=== PATIENT | female | born 1955 | race Caucasian/White ===

== ENCOUNTER 2017-01-27 15:23 | Emergency (ER) | payer BC ==
[2017-01-27 15:27] VITALS: TEMP 98; BMI 23.1
--- NOTE | 2017-01-27 16:18 | PDOC ---
History of Present Illness - General History Source: Patient Exam Limitations: No Limitations - History of Present Illness Initial Comments: 01/27/17 16:27 The patient is a 61 year old female, with a significant past medical history of UTI and gout, who presents to the emergency department with generalized weakness and low potassium. The patient was being worked up for a potential thyroid disorder when the low potassium was noted. She notes that she was taking prednisone for gout prior to the symptoms starting. She denies any recent illness or sick contacts. The patient denies chest pain, shortness of breath, headache and dizziness. Denies fever, chills, nausea, vomit, diarrhea and constipation. Denies dysuria, frequency, urgency and hematuria. Allergies: None Past surgical history: None reported Social history: Social alcohol use. No tobacco or drug use reported <Vin Harrison - Last Filed: 01/27/17 16:26> - General History Source: Patient Exam Limitations: No Limitations <Shaw Randolph - Last Filed: 01/27/17 21:42> - General Chief Complaint: Revisit, Lab Variance Stated Complaint: POTASSIUM PROBLEM Time Seen by Provider: 01/27/17 16:05 Past History <Vin Harrison - Last Filed: 01/27/17 16:26> - Past Medical History Hypercholesterolemia: Yes - Psycho/Social/Smoking Cessation Hx Anxiety: No Suicidal Ideation: No Smoking History: Never smoked Hx Alcohol Use: Yes (SOCIAL) Drug/Substance Use Hx: No Substance Use Type: None <Shaw Randolph - Last Filed: 01/27/17 21:42> - Past Medical History Allergies/Adverse Reactions: Allergies Allergy/AdvReac Type Severity Reaction Status Date / Time No Known Allergies Allergy Verified 01/27/17 15:27 Home Medications: Ambulatory Orders Unobtainable [Unobtainable] 01/27/17 Review of Systems - Review of Systems Able to Perform ROS?: Yes Comments:: 01/27/17 16:26 GENERAL/CONSTITUTIONAL: (+) Generalized weakness. No fever or chills. HEAD, EYES, EARS, NOSE AND THROAT: No change in vision. No ear pain or discharge. No sore throat. CARDIOVASCULAR: No chest pain or shortness of breath RESPIRATORY: No cough, wheezing, or hemoptysis. GASTROINTESTINAL: No nausea, vomiting, diarrhea or constipation. GENITOURINARY: No dysuria, frequency, or change in urination. MUSCULOSKELETAL: No joint or muscle swelling or pain. No neck or back pain. SKIN: No rash NEUROLOGIC: No headache, vertigo, loss of consciousness, or change in strength/ sensation. ENDOCRINE: No increased thirst. No abnormal weight change HEMATOLOGIC/LYMPHATIC: No anemia, easy bleeding, or history of blood clots. ALLERGIC/IMMUNOLOGIC: No hives or skin allergy. <Vin Harrison Telma - Last Filed: 01/27/17 16:26> *Physical Exam - Vital Signs Last Vital Signs Temp Pulse Resp BP Pulse Ox 98.0 F 110 H 20 117/76 97 01/27/17 15:24 01/27/17 15:24 01/27/17 15:24 01/27/17 15:24 01/27/17 15:24 - Physical Exam Comments: 01/27/17 16:26 GENERAL: Awake, alert, and fully oriented, in no acute distress HEAD: No signs of trauma, normocephalic, atraumatic EYES: PERRLA, EOMI, sclera anicteric, conjunctiva clear ENT: Auricles normal inspection, hearing grossly normal, nares patent, oropharynx clear without exudates. Moist mucosa NECK: Normal ROM, supple, no lymphadenopathy, JVD, or masses LUNGS: No distress, speaks full sentences, clear to auscultation bilaterally HEART: Regular rate and rhythm, normal S1 and S2, no murmurs, rubs or gallops, peripheral pulses normal and equal bilaterally. ABDOMEN: Soft, nontender, normoactive bowel sounds. No guarding, no rebound. No masses EXTREMITIES: Normal inspection, Normal range of motion, no edema. No clubbing or cyanosis. NEUROLOGICAL: Cranial nerves II through XII grossly intact. Normal speech, normal gait, no focal sensorimotor deficits SKIN: Warm, Dry, normal turgor, no rashes or lesions noted. <Laura Harrisonvinicius Hollis - Last Filed: 01/27/17 16:26> - Vital Signs Last Vital Signs Temp Pulse Resp BP Pulse Ox 98.0 F 110 H 20 117/76 97 01/27/17 15:24 01/27/17 15:24 01/27/17 15:24 01/27/17 15:24 01/27/17 15:24 <Park,Shaw - Last Filed: 01/27/17 21:42> Heart Score/ECG Review #1 ECG reviewed & interpreted by me at: 17:00 01/27/17 16:54 NSR 104, TWI III, avF, Q wave III, poor R wave progression, no std/jessica, QTC 476 msec <Shaw Randolph - Last Filed: 01/27/17 21:42> ED Treatment Course - LABORATORY CBC & Chemistry Diagram: 01/27/17 16:38 01/27/17 16:38 <Shaw Randolph - Last Filed: 01/27/17 21:42> Medical Decision Making - Medical Decision Making 01/27/17 16:16 A portion of this note was written by my scribe, under my supervision. Vital Signs Temp Pulse Resp BP Pulse Ox 98.0 F 110 H 20 117/76 97 01/27/17 15:24 01/27/17 15:24 01/27/17 15:24 01/27/17 15:24 01/27/17 15:24 61 year old female with past medical history of UTI, gout presents with low potassium ~2.6. The patient reports about 1 week of generalized weakness. Denies pain, recent illnesses, fevers, chills, cough, vomiting, diarrhea. Was taking prednisone for gout prior to the weakness. Not on diuretics. Was being worked up for potential thyroid disorder when she was incidentally ntoed to have low potassium. A repeat potassium was drawn and again pt was hypokalemic ( on outpatient labs). Pt was sent to the ED. Will investigate the hypokalemia. Will need ECG, labs. Will likely need admission to the hospital for hypokalemia. 01/27/17 21:39 CBC, BMP 01/27/17 16:38 01/27/17 16:38 CMP Sodium 136 mmol/L (136-145) 01/27/17 16:38 Potassium 3.4 mmol/L (3.5-5.1) L 01/27/17 16:38 Chloride 87 mmol/L (98-107) L 01/27/17 16:38 Carbon Dioxide 36 mmol/L (21-32) H 01/27/17 16:38 Anion Gap 13 (8-16) 01/27/17 16:38 BUN 9 mg/dL (7-18) 01/27/17 16:38 Creatinine 0.6 mg/dL (0.55-1.02) 01/27/17 16:38 Creat Clearance w eGFR > 60 (>60) 01/27/17 16:38 Random Glucose 105 mg/dL (74-106) 01/27/17 16:38 Calcium 9.2 mg/dL (8.5-10.1) 01/27/17 16:38 Phosphorus 2.6 mg/dL (2.5-4.9) 01/27/17 16:38 Magnesium 1.5 mg/dL (1.8-2.4) L 01/27/17 16:38 Total Bilirubin 3.8 mg/dL (0.2-1.0) H 01/27/17 16:38 Direct Bilirubin 2.5 mg/dL (0.0-0.2) H 01/27/17 16:38 AST 89 U/L (15-37) H 01/27/17 16:38 ALT 25 U/L (12-78) 01/27/17 16:38 Alkaline Phosphatase 423 U/L (45-117) H 01/27/17 16:38 Creatine Kinase 48 IU/L (26-192) 01/27/17 16:38 Troponin I < 0.02 ng/ml (0.00-0.05) 01/27/17 16:38 Total Protein 7.3 g/dl (6.4-8.2) 01/27/17 16:38 Albumin 3.1 g/dl (3.4-5.0) L 01/27/17 16:38 Urine Test Results Urine Color Katerina 01/27/17 18:00 Urine Appearance Clear 01/27/17 18:00 Urine pH 6.0 (5.0-8.0) 01/27/17 18:00 Ur Specific [place] 1.010 (1.005-1.025) 01/27/17 18:00 Urine Protein Negative (NEGATIVE) 01/27/17 18:00 Urine Glucose (UA) Negative (NEGATIVE) 01/27/17 18:00 Urine Ketones Negative (NEGATIVE) 01/27/17 18:00 Urine Blood Negative (NEGATIVE) 01/27/17 18:00 Urine Nitrite Negative (NEGATIVE) 01/27/17 18:00 Urine Bilirubin 4.0 (NEGATIVE) 01/27/17 18:00 Ur Leukocyte Esterase Negative (NEGATIVE) 01/27/17 18:00 Incidentally, the patient is noted have elevated bilirubin and elevated direct bilirubin with elevated urine bilirubin. However the potassium was unremarkable. The right upper quadrant ultrasound demonstrates fatty liver disease versus a hepatocellular disease and gallbladder sludging but no acute hcelle.CBD WNL. This may potentially be the source of the patient's issues. I discussed the case with gastrointestinal just special education professional Dr. Lockhart states that the patient can be discharged and be followed as an outpatient. Wants to follow- up with them in 1-2 weeks. 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 Agrees with plan. I discussed the physical exam findings, ancillary test results and final diagnoses with the patient. I answered all of the patient's questions. The patient was satisfied with the care received and felt comfortable with the discharge plan and treatment plan. The patient will call their primary care physician within 24 hours to arrange follow-up and will return to the Emergency Department with any new, persistant or worsening symptoms. <Shaw Randolph - Last Filed: 01/27/17 21:42> *DC/Admit/Observation/Transfer - Attestations Scribe Attestion: 01/27/17 16:26 Documentation prepared by Vin Harrison, acting as medical housekeeper for Shaw Randolph MD <Vin Harrison - Last Filed: 01/27/17 16:26> - Discharge Dispostion Admit: No <Shaw Randolph - Last Filed: 01/27/17 21:42> Diagnosis at time of Disposition: Elevated bilirubin - Discharge Dispostion Disposition: HOME Condition at time of disposition: Stable - Referrals Referrals: Patricia Skinner MD [Primary Care Provider] - Ronald Lockhart MD [Staff Physician] - - Patient Instructions Printed Discharge Instructions: Bilirubin, Direct, Bilirubin, Total Additional Instructions: Please follow up with Dr. Lockhart in 1 to 2 weeks. Please let the office know that Dr. Lockhart specifically requests them to be seen in this time span. Let them know you are ER referral. Call to schedule an appointment.
[2017-01-27 16:45] LABS: BASOPHIL 0.5 % (0-2.0); EOSINOPHIL 0.9 % (0-4.5); MCH 35.9 pg (25.7-33.7); MCHC 33.1 g/dl (32.0-36.0); MEAN CELL VOLUME 108.6 fl (80-96); MEAN PLT VOLUME 9.1 fl (7.5-11.1); NEUTROPHILS 76.8 % (42.8-82.8); PLATELET COUNT 205 K/MM3 (134-434); RDW 16.8 % (11.6-15.6); WHITE BLOOD COUNT 12.2 K/mm3 (4.0-10.0)
[2017-01-27 17:14] LABS: ALBUMIN 3.1 g/dl (3.4-5.0); ANION GAP 13 (8-16); CALCIUM 9.2 mg/dL (8.5-10.1); CO2 36 mmol/L (21-32); CREATININE 0.6 mg/dL (0.55-1.02); GLUCOSE,RANDOM 105 mg/dL (74-106); PHOSPHOROUS 2.6 mg/dL (2.5-4.9); SGPT/ALT 25 U/L (12-78)
[2017-01-27 17:15] LABS: TROPONIN I < 0.02 ng/ml (0.00-0.05)
[2017-01-27 17:16] LABS: ALK PHOS 423 U/L (45-117); BILIRUBIN,TOTAL 3.8 mg/dL (0.2-1.0); TOT PROT 7.3 g/dl (6.4-8.2)
[2017-01-27 17:34] LABS: MAGNESIUM 1.5 mg/dL (1.8-2.4); SGOT/AST 89 U/L (15-37)
[2017-01-27] MEDS ORDERED: MAGNESIUM SULF 50% (8.12 MEQ/2 ML-1 GM VIAL) IVPB ONE (17:48)
[2017-01-27] MEDS ORDERED: SODIUM CHLORIDE 1,000 ML IV STA (17:50)
[2017-01-27] MEDS ORDERED: MAGNESIUM SULF 50% (8.12 MEQ/2 ML-1 GM VIAL) ONE (18:02)
[2017-01-27 18:19] LABS: URINE APPEARANCE CLEAR; URINE BLOOD NEGATIVE (NEGATIVE); URINE COLOR AMBER; URINE GLUCOSE (UA) NEGATIVE (NEGATIVE); URINE KETONE NEGATIVE (NEGATIVE); URINE LEUK ESTERASE NEGATIVE (NEGATIVE); URINE NITRITE NEGATIVE (NEGATIVE); URINE PROTEIN NEGATIVE (NEGATIVE); URINE UROBILINOGEN 4.0 E.U/dl E.U./dl (0.2-1.0)
[2017-01-27 18:59] LABS: BILIRUBIN,TOTAL 3.8 mg/dL (0.2-1.0)
[2017-01-27 19:06] LABS: BILIRUBIN,DIRECT 2.5 mg/dL (0.0-0.2)
[2017-01-27 21:02] LABS: PLATELET ESTIMATE ADEQUATE (NORMAL)
[2017-01-27 21:03] LABS: POLYCHROMASIA OCC
[2017-01-27 21:56] VITALS: BP 119/72; PULSE 89
--- NOTE | 2017-01-28 12:35 | EKG ---
Test Reason : Blood Pressure : / mmHG Vent. Rate : 104 BPM Atrial Rate : 104 BPM P-R Int : 140 ms QRS Dur : 076 ms QT Int : 362 ms P-R-T Axes : 047 022 -08 degrees QTc Int : 476 ms SINUS TACHYCARDIA INFERIOR INFARCT , AGE UNDETERMINED ANTEROSEPTAL INFARCT , AGE UNDETERMINED ABNORMAL ECG NO PREVIOUS ECGS AVAILABLE Confirmed by DAKOTA ORTEGA MD ([id number]) on 01/28/2017 12:35:04 PM Referred By: Confirmed By:DAKOTA ORTEGA MD
== END 2017-01-27 21:56 | disposition home or self-care (01) ==
LOC: JER 15:23
PROC: 3E0337Z Introduction of Electrolytic and Water Balance Substance into Peripheral Vein, Percutaneous Approach (ICD-10-PCS; principal; 2017-01-27)
PROC: 3E033GC Introduction of Other Therapeutic Substance into Peripheral Vein, Percutaneous Approach (ICD-10-PCS; 2017-01-27)
DX: R17 Unspecified jaundice (principal)
CPT/HCPCS: 36415; 76705-TC; 80053; 81003; 82247; 82248; 82550; 83735; 84100; 84484; 85025; 87086; 93005; 93010; 99283-25

== ENCOUNTER 2017-10-21 18:20 | Inpatient (IN) | payer BC ==
--- NOTE | 2017-10-21 18:38 | PDOC ---
Rapid Medical Evaluation Time Seen by Provider: 10/21/17 18:38 Medical Evaluation: Allergies Allergy/AdvReac Type Severity Reaction Status Date / Time No Known Allergies Allergy Verified 01/27/17 15:27 10/21/17 18:38 62 year old female with history of UTIs and gout presenting "feeling dehydrated. " Complains of generalized weakness. +Dysuria, frequency, urgency + Vomiting x 1 this morning -Basic labs -UA/culture -To Main ED for further evaluation
[2017-10-21] MEDS ORDERED: SODIUM CHLORIDE 1,000 ML IV STA (18:42)
[2017-10-21 18:43] VITALS: BMI 22.1
[2017-10-21 19:56] LABS: URINE APPEARANCE SLCLOUDY; URINE BLOOD 1+ (NEGATIVE); URINE COLOR AMBER; URINE GLUCOSE (UA) NEGATIVE (NEGATIVE); URINE KETONE NEGATIVE (NEGATIVE); URINE NITRITE NEGATIVE (NEGATIVE); URINE UROBILINOGEN 4.0 E.U/dl mg/dL (0.2-1.0)
[2017-10-21 20:05] LABS: URINE LEUK ESTERASE 1+ (NEGATIVE); URINE PROTEIN 3+ (NEGATIVE)
[2017-10-21 20:06] LABS: EPI CELLS FEW /HPF (FEW); URINE HYALINE CAST 6 /lpf; URINE MUCUS MODERATE
[2017-10-21 20:17] LABS: HEMATOCRIT 37.6 % (32.4-45.2); MCH 36.5 pg (25.7-33.7); MCHC 34.4 g/dl (32.0-36.0); MEAN PLT VOLUME 9.9 fl (7.5-11.1); PLATELET COUNT 97 K/MM3 (134-434); RBC 3.55 M/mm3 (3.60-5.2); RDW 17.7 % (11.6-15.6); WHITE BLOOD COUNT 13.8 K/mm3 (4.0-10.0)
[2017-10-21 20:26] LABS: ADD RBC MORPHOLOGY YES
[2017-10-21 20:31] LABS: INR 1.59 (0.82-1.09)
[2017-10-21 20:43] LABS: ALBUMIN 4.1 g/dl (3.4-5.0); ALK PHOS 562 U/L (45-117); ANION GAP 12 (8-16); BILIRUBIN,TOTAL 4.2 mg/dL (0.2-1.0); BLOOD UREA NITROGEN 6 mg/dL (7-18); CALCIUM 9.1 mg/dL (8.5-10.1); CHLORIDE 90 mmol/L (98-107); CO2 32 mmol/L (21-32); CREATININE 0.9 mg/dL (0.55-1.02); GLUCOSE,RANDOM 111 mg/dL (74-106); MAGNESIUM 0.9 mg/dL (1.8-2.4); SGOT/AST 164 U/L (15-37); SGPT/ALT 39 U/L (12-78); SODIUM 134 mmol/L (136-145)
[2017-10-21 21:12] LABS: MACROCYTOSIS 2+; PLATELET ESTIMATE DECREASED
[2017-10-22] MEDS ORDERED: POTASSIUM CHLORIDE ORAL LIQUID 20 MEQ/15 ML PO ONE (00:13)
[2017-10-22] MEDS ORDERED: KCL 10 MEQ IVPB 10 MEQ/100 ML INFUS.BAG IVPB SCH (00:15)
[2017-10-22] MEDS ORDERED: SODIUM CHLORIDE 0.9% 1000 ML INFUS.BAG IV SCH (00:15)
[2017-10-22] MEDS ORDERED: LACTULOSE 20 GM/30 ML UDC (FOR ORAL USE ONLY) PO ONE (00:37)
[2017-10-22] MEDS ORDERED: ACETAMINOPHEN 325 MG TABLET (FP) PO ONE (00:42)
[2017-10-22] MEDS ORDERED: chlordiazePOXIDE HCL 25 MG CAPSULE PO ONE (00:42)
--- NOTE | 2017-10-22 00:43 | PDOC ---
*Physical Exam - Vital Signs Last Vital Signs Temp Pulse Resp BP Pulse Ox 101.8 F H 128 H 18 152/82 96 10/21/17 18:40 10/21/17 18:40 10/21/17 18:40 10/21/17 18:40 10/21/17 18:40 ED Treatment Course - LABORATORY CBC & Chemistry Diagram: 10/25/17 06:30 10/25/17 06:30 - ADDITIONAL ORDERS Additional order review: Laboratory Results 10/21/17 10/21/17 10/21/17 19:45 19:45 19:45 PT with INR 18.00 H INR 1.59 H D Sodium Potassium Chloride Carbon Dioxide Anion Gap BUN Creatinine Creat Clearance w eGFR Random Glucose Lactic Acid 4.3 H* Calcium Magnesium Total Bilirubin AST ALT Alkaline Phosphatase Ammonia 100.80 H Total Protein Albumin Urine Color Urine Appearance Urine pH Ur Specific [place] Urine Protein Urine Glucose (UA) Urine Ketones Urine Blood Urine Nitrite Urine Bilirubin Urine Urobilinogen Ur Leukocyte Esterase Urine WBC (Auto) Urine RBC (Auto) Ur Epithelial Cells Hyaline Casts Urine Mucus 10/21/17 10/21/17 19:45 19:35 PT with INR INR Sodium 134 L Potassium 3.0 L Chloride 90 L Carbon Dioxide 32 Anion Gap 12 BUN 6 L Creatinine 0.9 Creat Clearance w eGFR > 60 Random Glucose 111 H Lactic Acid Calcium 9.1 Magnesium 0.9 L Total Bilirubin 4.2 H D AST 164 H ALT 39 Alkaline Phosphatase 562 H Ammonia Total Protein 9.0 H Albumin 4.1 Urine Color Katerina Urine Appearance Slcloudy Urine pH 6.0 Ur Specific [place] 1.024 Urine Protein 3+ H Urine Glucose (UA) Negative Urine Ketones Negative Urine Blood 1+ H Urine Nitrite Negative Urine Bilirubin 2.0 Urine Urobilinogen 4.0 e.u/dl H Ur Leukocyte Esterase 1+ H Urine WBC (Auto) 80 Urine RBC (Auto) 9 Ur Epithelial Cells Few Hyaline Casts 6 Urine Mucus Moderate 10/21/17 19:45 RBC 3.55 L MCV 106.0 H MCHC 34.4 RDW 17.7 H D MPV 9.9 D Neutrophils % No Result Required. Lymphocytes % No Result Required. Medical Decision Making - Medical Decision Making 10/22/17 00:41 Pt will be admitted for hepatic encephalopathy. Pt probably withdrawing from alcohol as well. Pt also has a UTI. Pt to be admitted to [facility]. agree with care from RAMESH Corcoran *DC/Admit/Observation/Transfer Diagnosis at time of Disposition: Hepatic encephalopathy, Hypokalemia, Sepsis, UTI (urinary tract infection) - Discharge Dispostion Disposition: HOME Condition at time of disposition: Stable - Prescriptions - Referrals - Patient Instructions - Post Discharge Activity
[2017-10-22] MEDS ORDERED: LACTULOSE 20 GM/30 ML UDC (FOR ORAL USE ONLY) ONE (01:10)
[2017-10-22] MEDS ORDERED: ACETAMINOPHEN 325 MG TABLET (FP) ONE (01:10)
[2017-10-22] MEDS ORDERED: chlordiazePOXIDE HCL 25 MG CAPSULE ONE ×2 (01:10→01:42)
[2017-10-22] MEDS ORDERED: POTASSIUM CHLORIDE ORAL LIQUID 20 MEQ/15 ML ONE ×2 (01:10→05:01)
[2017-10-22] MEDS ORDERED: CEFTRIAXONE 1 GM/50 ML BAG ONE (01:11)
[2017-10-22] MEDS ORDERED: KCL 10 MEQ IVPB 10 MEQ/100 ML INFUS.BAG IVPB ONE (01:11)
[2017-10-22] MEDS ORDERED: MAGNESIUM SULF 50% (8.12 MEQ/2 ML-1 GM VIAL) IVPB ONE ×3 (04:09→17:13)
--- NOTE | 2017-10-22 04:48 | PDOC ---
History of Present Illness - General Chief Complaint: Urinary Problem Stated Complaint: WEAKNESS,DARKER URINE, POOR Time Seen by Provider: 10/21/17 18:38 History Source: Patient, Family Exam Limitations: No Limitations - History of Present Illness Initial Comments: 10/22/17 04:42 Patient is a 62-year-old female history of EtOH abuse, HLD, alcoholic liver hepatitis, prediabetes, myomectomy, hysterectomy, oophorectomy came in complaining of legs feeling shaky and weak which started today. States her last drink was one week ago. States that each time she gets up to walk she is very shaky and has to sit down. She is also complaining off suprapubic pain, bilateral back pain and dysuria 2 weeks. States she thinks she is having a UTI however did not get care for her symptoms. Denies fever, chills, nausea, vomiting. Noted on triage to be febrile PMD: Dr. Patricia Skinner PMHX: As above PSOCHx: (+) EtOH, (-) cig, (-) drug ALL: NKDA GENERAL/CONSTITUTIONAL: (+) fever or chills. (+) weakness. No weight change.] HEAD, EYES, EARS, NOSE AND THROAT: [No change in vision. No ear pain or discharge. No sore throat.] CARDIOVASCULAR: [No chest pain or shortness of breath.] RESPIRATORY: [No cough, wheezing, or hemoptysis.] GASTROINTESTINAL: [No nausea, vomiting, diarrhea or constipation. No rectal bleeding.] GENITOURINARY: [No dysuria, frequency, or change in urination.] MUSCULOSKELETAL: [No joint or muscle swelling or pain. No neck or back pain.] SKIN AND BREASTS: [No rash or easy bruising.] NEUROLOGIC: [No headache, vertigo, loss of consciousness, or loss of sensation.] PSYCHIATRIC: [No depression or anxiety.] ENDOCRINE: [No increased thirst. No abnormal weight change.] HEMATOLOGIC/LYMPHATIC: [No anemia, easy bleeding, or history of blood clots.] ALLERGIC/IMMUNOLOGIC: [No hives or skin allergy. No latex allergy.] GENERAL: [The patient is awake, alert, and fully oriented, in no acute distress. ] HEAD: [Normal with no signs of trauma.] EYES: [Pupils equal, round and reactive to light, extraocular movements intact, sclera icteric, conjunctiva clear.] ENT: [Ears normal, nares patent, oropharynx clear without exudates. Moist mucous membranes.] NECK: [Normal range of motion, supple without lymphadenopathy, JVD, or masses.] LUNGS: [Breath sounds equal, clear to auscultation bilaterally. No wheezes, and no crackles.] HEART: [Regular rate and rhythm, normal S1 and S2 without murmur, rub.] ABDOMEN: [Soft, nontender, normoactive bowel sounds. No guarding, no rebound. No masses.] EXTREMITIES: [Normal range of motion, no edema. No clubbing or cyanosis. No cords, erythema, or tenderness.] NEUROLOGICAL: [Cranial nerves II through XII grossly intact. (+) Tremors prior and lower extremities, lower extremity 3/5 strength, upper extremity 5/5 patellar reflexes decreased, gait not tested due to fall risk. PSYCH: [Normal mood, normal affect.] SKIN: [Warm, Dry, normal turgor, (+) jaundiced, no rashes or lesions noted.] Past History - Past Medical History Allergies/Adverse Reactions: Allergies Allergy/AdvReac Type Severity Reaction Status Date / Time No Known Allergies Allergy Verified 10/21/17 18:43 Home Medications: Ambulatory Orders NK [No Known Home Medication] 10/22/17 COPD: No Diabetes: Yes (borderline) Hypercholesterolemia: Yes Other medical history: liver problems due to alcohol - Suicide/Smoking/Psychosocial Hx Smoking History: Never smoked Have you smoked in the past 12 months: No Information on smoking cessation initiated: No Hx Alcohol Use: Yes Drug/Substance Use Hx: No Substance Use Type: None *Physical Exam - Vital Signs Last Vital Signs Temp Pulse Resp BP Pulse Ox 101.8 F H 128 H 18 152/82 96 10/21/17 18:40 10/21/17 18:40 10/21/17 18:40 10/21/17 18:40 10/21/17 18:40 ED Treatment Course - LABORATORY CBC & Chemistry Diagram: 10/21/17 19:45 10/22/17 05:58 - ADDITIONAL ORDERS Additional order review: Laboratory Results 10/21/17 10/21/17 10/21/17 19:45 19:45 19:45 PT with INR 18.00 H INR 1.59 H D Sodium Potassium Chloride Carbon Dioxide Anion Gap BUN Creatinine Creat Clearance w eGFR Random Glucose Lactic Acid 4.3 H* Calcium Magnesium Total Bilirubin AST ALT Alkaline Phosphatase Ammonia 100.80 H Total Protein Albumin Urine Color Urine Appearance Urine pH Ur Specific [place] Urine Protein Urine Glucose (UA) Urine Ketones Urine Blood Urine Nitrite Urine Bilirubin Urine Urobilinogen Ur Leukocyte Esterase Urine WBC (Auto) Urine RBC (Auto) Ur Epithelial Cells Hyaline Casts Urine Mucus 10/21/17 10/21/17 19:45 19:35 PT with INR INR Sodium 134 L Potassium 3.0 L Chloride 90 L Carbon Dioxide 32 Anion Gap 12 BUN 6 L Creatinine 0.9 Creat Clearance w eGFR > 60 Random Glucose 111 H Lactic Acid Calcium 9.1 Magnesium 0.9 L Total Bilirubin 4.2 H D AST 164 H ALT 39 Alkaline Phosphatase 562 H Ammonia Total Protein 9.0 H Albumin 4.1 Urine Color Katerina Urine Appearance Slcloudy Urine pH 6.0 Ur Specific [place] 1.024 Urine Protein 3+ H Urine Glucose (UA) Negative Urine Ketones Negative Urine Blood 1+ H Urine Nitrite Negative Urine Bilirubin 2.0 Urine Urobilinogen 4.0 e.u/dl H Ur Leukocyte Esterase 1+ H Urine WBC (Auto) 80 Urine RBC (Auto) 9 Ur Epithelial Cells Few Hyaline Casts 6 Urine Mucus Moderate 10/21/17 19:45 RBC 3.55 L MCV 106.0 H MCHC 34.4 RDW 17.7 H D MPV 9.9 D Neutrophils % No Result Required. Lymphocytes % No Result Required. - Medications Given in the ED: ED Medications Discontinued Medications Generic Name Dose Route Start Last Admin Trade Name Freq PRN Reason Stop Dose Admin Acetaminophen 650 mg 10/22/17 00:42 10/22/17 01:40 Tylenol - PO 10/22/17 00:43 650 mg ONCE ONE Administration Ceftriaxone Sodium 1,000 mg 10/22/17 00:42 10/22/17 01:46 Rocephin - IVPUSH 10/22/17 00:43 1,000 mg ONCE ONE Administration Chlordiazepoxide HCl 50 mg 10/22/17 00:42 10/22/17 01:45 Librium - PO 10/22/17 00:43 50 mg ONCE ONE Administration Sodium Chloride 1,000 mls @ 1,000 mls/hr 10/21/17 18:42 10/22/17 01:59 Normal Saline - IV 10/21/17 19:41 1,000 mls/hr ASDIR STA Administration Potassium Chloride 10 meq in 100 mls @ 100 mls/hr 10/22/17 00:15 10/22/17 01: 59 Potassium Chloride 10 Meq Premix Ivpb - IVPB 10/22/17 01:14 100 mls/hr Q60M LISET Administration Lactulose 20 gm 10/22/17 00:37 10/22/17 01:40 Cephulac (Oral Use) PO 10/22/17 00:38 20 gm ONCE ONE Administration Potassium Chloride 40 meq 10/22/17 00:13 10/22/17 01:40 Potassium Chloride Oral Liquid PO 10/22/17 00:14 40 meq ONCE ONE Administration Medical Decision Making - Medical Decision Making 10/22/17 04:48 Patient is a 62-year-old female history of EtOH abuse, HLD, alcoholic liver hepatitis, prediabetes, myomectomy, hysterectomy, oophorectomy came in complaining of legs feeling shaky and weak that which started today and UTI symptoms. Found to be febrile and tachycardic consisdered septic. Sepsis protocol initiated labs done at triage noted elevated wbc and lactic will have to r/o sepsis IVF and Rocephin 1 gm give IV librium, lactulose given CXR neg ekg sr rate 93, LAD, (-) st-t wave changes Case d/w with hospitalist will admit *DC/Admit/Observation/Transfer Diagnosis at time of Disposition: Hepatic encephalopathy, Hypokalemia Sepsis Qualifiers: Sepsis type: sepsis due to unspecified organism Qualified Code(s): A41.9 - Sepsis, unspecified organism UTI (urinary tract infection) Qualifiers: Urinary tract infection type: site unspecified Hematuria presence: without hematuria Qualified Code(s): N39.0 - Urinary tract infection, site not specified - Discharge Dispostion Condition at time of disposition: Stable Admit: Yes - Referrals - Patient Instructions - Post Discharge Activity
[2017-10-22] MEDS ORDERED: POTASSIUM CHLORIDE TABS 20 MEQ TABLET.ER (FP) PO ONE (04:58)
[2017-10-22] MEDS: SODIUM CHLORIDE 1,000 ML IV SCH (04:58)
[2017-10-22] MEDS ORDERED: FOLIC ACID INJECTION - 1 MG, THIAMINE HCL 100 MG, MULTIVIT INJECTION ADULT 10 ML in SOD... IVPB ONE (04:59)
[2017-10-22] MEDS ORDERED: MAGNESIUM SULF 50% (8.12 MEQ/2 ML-1 GM VIAL) ONE ×2 (05:01→18:18)
--- NOTE | 2017-10-22 05:06 | HP ---
CHIEF COMPLAINT: weakness HISTORY OF PRESENT ILLNESS: 62 year old female with a history of recurrent UTIs (previous infection was last year), hypokalemia, alcoholism and gout was brought to the hospital by her for generalized weakness of 1 day duration. Patient states that she had difficulty getting out of bed yesterday and was not able to use her legs very well. She also states that she has some mild burning on urination and urinary frequency. She states that she drinks frequently, with her last drink bring "1 week ago". Reports drinking 2-3 drinks a day. Denies history of withdrawal or a history of seizures. Currently, patient denies chest pain, SOB, nausea, vomiting , diarrhea, fevers, chills. ER course was notable for: (1) fever 101.8 (2) WBC 13.8 (3) LA 4.3 (4) K 3.0 (5) Mg 0.9 (6) (+) UA (7) ALP 562 (8) AST 164 PAST MEDICAL HISTORY: UTIs, Hypokalemia, Alcoholism Social History: Smoking: none, never Alcohol: 2-3 drinks a day, states that she quit last week Drugs: none Allergies No Known Allergies Allergy (Verified 10/21/17 18:43) HOME MEDICATIONS: Home Medications Medication Instructions Recorded NK [No Known Home Medication] 10/22/17 REVIEW OF SYSTEMS CONSTITUTIONAL: generalized weakness Absent: fever, chills, diaphoresis, , malaise, loss of appetite, weight change HEENT: Absent: rhinorrhea, nasal congestion, throat pain, throat swelling, difficulty swallowing, mouth swelling, ear pain, eye pain, visual changes CARDIOVASCULAR: Absent: chest pain, syncope, palpitations, irregular heart rate, lightheadedness , peripheral edema RESPIRATORY: Absent: cough, shortness of breath, dyspnea with exertion, orthopnea, wheezing, stridor, hemoptysis GASTROINTESTINAL: Absent: abdominal pain, abdominal distension, nausea, vomiting, diarrhea, constipation, melena, hematochezia GENITOURINARY: Absent: dysuria, frequency, urgency, hesitancy, hematuria, flank pain, genital pain MUSCULOSKELETAL: Absent: myalgia, arthralgia, joint swelling, back pain, neck pain SKIN: Absent: rash, itching, pallor HEMATOLOGIC/IMMUNOLOGIC: Absent: easy bleeding, easy bruising, lymphadenopathy, frequent infections ENDOCRINE: Absent: unexplained weight gain, unexplained weight loss, heat intolerance, cold intolerance NEUROLOGIC: Absent: headache, focal weakness or paresthesias, dizziness, unsteady gait, seizure, mental status changes, bladder or bowel incontinence PSYCHIATRIC: Absent: anxiety, depression, suicidal or homicidal ideation, hallucinations. PHYSICAL EXAMINATION Vital Signs - 24 hr 10/21/17 18:40 Temperature 101.8 F H Pulse Rate 128 H Respiratory 18 Rate Blood Pressure 152/82 O2 Sat by Pulse 96 Oximetry (%) GENERAL: A&O x 3 EYES: PERRLA, EOMI, mild scleral icterus noted ENT: moist mucus membranes NECK: No JVD LUNGS: CTA HEART: RRR, no murmurs ABDOMEN: soft nontender, bs present MSK: No CVA tenderness LOWER EXTREMITIES: 2+ pulses, no edema NEUROLOGICAL: Cranial nerves II-XII intact. No focal deficits, no dysmetria Laboratory Results - last 24 hr 10/21/17 10/21/17 10/21/17 19:35 19:45 19:45 WBC 13.8 H RBC 3.55 L Hgb 13.0 Hct 37.6 MCV 106.0 H MCH 36.5 H D MCHC 34.4 RDW 17.7 H D Plt Count 97 L D MPV 9.9 D Neutrophils % No Result Required. Neutrophils % (Manual) 53.0 Band Neutrophils % 28.0 Lymphocytes % No Result Required. Lymphocytes % (Manual) 5.0 L Monocytes % (Manual) 10 Eosinophils % (Manual) 0.0 Basophils % (Manual) 0.0 Platelet Estimate Decreased Platelet Comment No clumping noted Macrocytosis 2+ PT with INR INR Sodium 134 L Potassium 3.0 L Chloride 90 L Carbon Dioxide 32 Anion Gap 12 BUN 6 L Creatinine 0.9 Creat Clearance w eGFR > 60 Random Glucose 111 H Lactic Acid Calcium 9.1 Magnesium 0.9 L Total Bilirubin 4.2 H D AST 164 H ALT 39 Alkaline Phosphatase 562 H Ammonia Total Protein 9.0 H Albumin 4.1 Urine Color Katerina Urine Appearance Slcloudy Urine pH 6.0 Ur Specific [place] 1.024 Urine Protein 3+ H Urine Glucose (UA) Negative Urine Ketones Negative Urine Blood 1+ H Urine Nitrite Negative Urine Bilirubin 2.0 Urine Urobilinogen 4.0 e.u/dl H Ur Leukocyte Esterase 1+ H Urine WBC (Auto) 80 Urine RBC (Auto) 9 Ur Epithelial Cells Few Hyaline Casts 6 Urine Mucus Moderate 10/21/17 10/21/17 10/21/17 19:45 19:45 19:45 WBC RBC Hgb Hct MCV MCH MCHC RDW Plt Count MPV Neutrophils % Neutrophils % (Manual) Band Neutrophils % Lymphocytes % Lymphocytes % (Manual) Monocytes % (Manual) Eosinophils % (Manual) Basophils % (Manual) Platelet Estimate Platelet Comment Macrocytosis PT with INR 18.00 H INR 1.59 H D Sodium Potassium Chloride Carbon Dioxide Anion Gap BUN Creatinine Creat Clearance w eGFR Random Glucose Lactic Acid 4.3 H* Calcium Magnesium Total Bilirubin AST ALT Alkaline Phosphatase Ammonia 100.80 H Total Protein Albumin Urine Color Urine Appearance Urine pH Ur Specific [place] Urine Protein Urine Glucose (UA) Urine Ketones Urine Blood Urine Nitrite Urine Bilirubin Urine Urobilinogen Ur Leukocyte Esterase Urine WBC (Auto) Urine RBC (Auto) Ur Epithelial Cells Hyaline Casts Urine Mucus Current Medications Chlordiazepoxide HCl (Librium -) 15 mg PO PRN LISET Heparin Sodium (Porcine) (Heparin -) 5,000 unit SQ Q8H-IV LISET Sodium Chloride (Normal Saline -) 1,000 mls @ 100 mls/hr IV ASDIR LISET Last Admin: 10/22/17 04:58 Dose: 100 mls/hr Folic Acid 1 mg/ Thiamine HCl 100 mg/ Multivitamins/Minerals 10 ml/ Sodium Chloride 1,000 mls @ 125 mls/hr IVPB ONCE ONE Stop: 10/22/17 12:58 Last Admin: 10/22/17 05:11 Dose: 125 mls/hr Ceftriaxone Sodium 2 gm/ (Dextrose) 100 mls @ 200 mls/hr IVPB DAILY [facility] Magnesium Oxide (Mag-Ox -) 400 mg PO BID LISET Sodium Chloride (Normal Saline -) 1,864 ml 30 ml/kg (1864 ml) IV ONCE LISET Last Admin: 10/22/17 01:59 Dose: 1,864 ml ASSESSMENT/PLAN: 62 year old female with a hx of recurrent UTI, gout, hypokalemia, and liver disease presented to the hospital for weakness and found to have sepsis likely 2 /2 UTI as well as alcoholic liver disease and hypokalemia #Sepsis 2/2 UTI: patient has had UTIs in the past, having mild symptoms now but is febrile with a white count and a lactic acidosis -CXR negative -UA positive for WBCs and 1+ leukocyte esterase and cloudy -fluid resuscitation with NS @ 100cc/hr -ceftriaxone 2gm IV daily -trend lactic acid -follow urine and blood cultures #Alcoholic Liver Disease: patient has elevated ammonia, alk phos, and AST/ALT ratio > 2:1 -unlikely hepatic encephalopathy given clinical exam and findings -RUQ US ordered -GI consult Dr. Berkowitz appreciated #Hypokalemia: potassium 3.0, has a history of hypokalemia -give 2 of K-dur, 40meq each -repeat potassium -replete magnesium in order to properly replete potassium -EKG now #Hypomagnesemia: mag 0.9 -replete mag with 4gm IV and Magnesium Oxide 400mg PO BID -recheck mag after repletion -make sure not to overload with mag -EKG now, consider repeating EKG if mag is repleted above normal limits #Hyponatremia: sodium 134 -IV NS @ 100cc/hr #Alcoholism: last drink 1 week ago, does not appear in acute withdrawal, CIWA of 0 -Librium PRN, consider librium taper if patient begins to have withdrawal symptoms #FEN -IV NS @ 100cc/hr -Replete lytes in AM as described above -Protein controlled diet #Prophylaxis -Heparin 5000 subQ TID #Disposition -Admit to med-surg Visit type - Emergency Visit Emergency Visit: Yes Care time: The patient presented to the Emergency Department on the above date and was hospitalized for further evaluation of their emergent condition. - New Patient This patient is new to me today: Yes Date on this admission: 10/22/17 - Critical Care Critical Care patient: No Hospitalist Screening - Colonoscopy Questionnaire Colonoscopy Questionnaire: Colonoscopy Questionnaire - Patient: 50 - 75 years old and never had a screening colonoscopy: Unknown History of colon or rectal polyps, or CA: Unknown History of IBD, Crohn's disease or UC: Unknown History of abdominal radiation therapy as a child: Unknown - Relative: 1 with colon or rectal CA, or polyps at age 60 or younger: Unknown Colon or rectal CA diagnosed at age 45 or younger: Unknown Multiple relatives with colon or rectal CA: Unknown - Outcome: Screening Result: Negative Screen
[2017-10-22] MEDS ORDERED: chlordiazePOXIDE 5 MG CAPSULE PO SCH (05:15)
--- NOTE | 2017-10-22 05:25 | PN ---
Teaching Attending Note Name of Resident: Delano Russell ATTENDING PHYSICIAN STATEMENT I saw and evaluated the patient. I reviewed the resident's note and discussed the case with the resident. I agree with the resident's findings and plan as documented. SUBJECTIVE: 62F with ETOH abuse, alcoholic liver disease?, recurrent UTI comes in with generealized weakness. last drink Wednesday night, reports does not get withdrawals. OBJECTIVE: Gen: NAD, no tremors agitation, anxiety CV: RRR no m/r/g Lungs: CTA Ext: no asterixis K 3 Mg 0.9 ammonia 100 lac 4.3 ASSESSMENT AND PLAN: 62F with fever leukocytosis and urinary symptoms suggest Sepsis UTI, complicated by dehydration, hypokalemia, hypomagnesemia. Mentation appears normal not in enecephalopathy IV abx IVF Replete Mg and K and recheck in 4 hrs librium prn as she is not actively withdrawing
[2017-10-22 06:35] LABS: ANION GAP 12 (8-16); BLOOD UREA NITROGEN 10 mg/dL (7-18); CALCIUM 7.5 mg/dL (8.5-10.1); CHLORIDE 102 mmol/L (98-107); CO2 26 mmol/L (21-32); CREATININE 0.8 mg/dL (0.55-1.02); GLUCOSE,RANDOM 119 mg/dL (74-106); SODIUM 140 mmol/L (136-145)
[2017-10-22] MEDS ORDERED: CEFTRIAXONE 2 GM in DEXTROSE 5%-WATER - 100 ML IVPB SCH (10:00)
--- NOTE | 2017-10-22 10:21 | CON.GI ---
Consult Consult Specialty:: GI Reason for Consultation:: alcoholic liver diases - History of Present Illness History of Present Illness: chart reviewed. As per initial intake: 62 year old female with a history of recurrent UTIs ( previous infection was last year), hypokalemia, alcoholism and gout was brought to the hospital by her for generalized weakness of 1 day duration. Patient states that she had difficulty getting out of bed yesterday and was not able to use her legs very well. She also states that she has some mild burning on urination and urinary frequency. She states that she drinks frequently, with her last drink bring "1 week ago". Reports drinking 2-3 drinks a day. Denies history of withdrawal or a history of seizures. Currently, patient denies chest pain, SOB, nausea, vomiting, diarrhea, fevers, chills. In ED was found to have mild leukocytosis, mild hepatitis with cholestatic picture, positive UA, fatty liver with cholelithiasis on ultrasound. At the time of this encounter: The patient is not in distress, laying comfortably in her bed, awake, alert, oriented. she is aware of her liver condition for many years. She knows its likely due to alcohol. On exam has asterixis. Reports feeling weak for the last 1 week. Denies fever, chills, nausea, vomiting, hematemesis, hematochezia, melena, or diarrhea. her told her 2 days ago her eyes were yellow. The patient denies fluctuating abdominal girth, lower extremity swelling, feeling disoriented, inability to fall asleep, or stay awake. The patient continues to drink alcohol daily. Never had upper endoscopy. Screening colonoscopy was done 5 years ago and she tells me she is due for one now. - History Source History Provided By: Patient, Medical Record - Alcohol/Substance Use Hx Alcohol Use: Yes - Smoking History Smoking history: Never smoked Have you smoked in the past 12 months: No Home Medications - Allergies Allergies/Adverse Reactions: Allergies Allergy/AdvReac Type Severity Reaction Status Date / Time No Known Allergies Allergy Verified 10/21/17 18:43 - Home Medications Home Medications: Ambulatory Orders NK [No Known Home Medication] 10/22/17 Family Disease History - Family Disease History Family History: Unremarkable Review of Systems Findings/Remarks: please refer to HPI and H&P Physical Exam-GI Vital Signs: Vital Signs Temperature 98.8 F 10/22/17 07:13 Pulse Rate 88 10/22/17 07:13 Respiratory Rate 16 10/22/17 07:13 Blood Pressure 98/63 10/22/17 07:13 O2 Sat by Pulse Oximetry (%) 96 10/22/17 07:13 Constitutional: Yes: Well Nourished, No Distress, Calm Eyes: Yes: Sclera Icterus ( mild) HENT: Yes: Atraumatic Neck: Yes: Supple Cardiovascular: Yes: Regular Rate and Rhythm Respiratory: Yes: Regular Gastrointestinal Inspection: No: Ascites, Distention ...Auscultate: Yes: Hyperactive Bowel Sounds ...Palpate: Yes: Soft. No: Firm/Rigid, Guarding, Mass, Tenderness, Rebound Musculoskeletal: Yes: WNL Extremities: Yes: WNL Edema: No Neurological: Yes: Alert, Oriented, Asterixis Psychiatric: Yes: Alert, Oriented. No: Agitated Labs: INR, PTT INR 1.59 (0.82-1.09) H D 10/21/17 19:45 Laboratory Tests 10/21/17 10/21/17 10/21/17 19:35 19:45 19:45 WBC 13.8 H RBC 3.55 L Hgb 13.0 Hct 37.6 MCV 106.0 H MCH 36.5 H D MCHC 34.4 RDW 17.7 H D Plt Count 97 L D MPV 9.9 D Neutrophils % No Result Required. Neutrophils % (Manual) 53.0 Band Neutrophils % 28.0 Lymphocytes % No Result Required. Lymphocytes % (Manual) 5.0 L Monocytes % (Manual) 10 Eosinophils % (Manual) 0.0 Basophils % (Manual) 0.0 Platelet Estimate Decreased Platelet Comment No clumping noted Macrocytosis 2+ PT with INR INR Sodium 134 L Potassium 3.0 L Chloride 90 L Carbon Dioxide 32 Anion Gap 12 BUN 6 L Creatinine 0.9 Creat Clearance w eGFR > 60 Random Glucose 111 H Lactic Acid Calcium 9.1 Phosphorus Magnesium 0.9 L Total Bilirubin 4.2 H D AST 164 H ALT 39 Alkaline Phosphatase 562 H Ammonia Total Protein 9.0 H Albumin 4.1 Urine Color Katerina Urine Appearance Slcloudy Urine pH 6.0 Ur Specific [place] 1.024 Urine Protein 3+ H Urine Glucose (UA) Negative Urine Ketones Negative Urine Blood 1+ H Urine Nitrite Negative Urine Bilirubin 2.0 Urine Urobilinogen 4.0 e.u/dl H Ur Leukocyte Esterase 1+ H Urine WBC (Auto) 80 Urine RBC (Auto) 9 Ur Epithelial Cells Few Hyaline Casts 6 Urine Mucus Moderate 10/21/17 10/21/17 10/21/17 19:45 19:45 19:45 WBC RBC Hgb Hct MCV MCH MCHC RDW Plt Count MPV Neutrophils % Neutrophils % (Manual) Band Neutrophils % Lymphocytes % Lymphocytes % (Manual) Monocytes % (Manual) Eosinophils % (Manual) Basophils % (Manual) Platelet Estimate Platelet Comment Macrocytosis PT with INR 18.00 H INR 1.59 H D Sodium Potassium Chloride Carbon Dioxide Anion Gap BUN Creatinine Creat Clearance w eGFR Random Glucose Lactic Acid 4.3 H* Calcium Phosphorus Magnesium Total Bilirubin AST ALT Alkaline Phosphatase Ammonia 100.80 H Total Protein Albumin Urine Color Urine Appearance Urine pH Ur Specific [place]inder Urine Protein Urine Glucose (UA) Urine Ketones Urine Blood Urine Nitrite Urine Bilirubin Urine Urobilinogen Ur Leukocyte Esterase Urine WBC (Auto) Urine RBC (Auto) Ur Epithelial Cells Hyaline Casts Urine Mucus 10/22/17 10/22/17 10/22/17 04:53 05:43 05:58 WBC RBC Hgb Hct MCV MCH MCHC RDW Plt Count MPV Neutrophils % Neutrophils % (Manual) Band Neutrophils % Lymphocytes % Lymphocytes % (Manual) Monocytes % (Manual) Eosinophils % (Manual) Basophils % (Manual) Platelet Estimate Platelet Comment Macrocytosis PT with INR INR Sodium 140 Potassium 4.0 Chloride 102 Carbon Dioxide 26 Anion Gap 12 BUN 10 Creatinine 0.8 Creat Clearance w eGFR Random Glucose 119 H Lactic Acid 2.8 H* Calcium 7.5 L Phosphorus 3.0 Magnesium Cancelled 1.0 L Total Bilirubin AST ALT Alkaline Phosphatase Ammonia Total Protein Albumin Urine Color Urine Appearance Urine pH Ur Specific [place] Urine Protein Urine Glucose (UA) Urine Ketones Urine Blood Urine Nitrite Urine Bilirubin Urine Urobilinogen Ur Leukocyte Esterase Urine WBC (Auto) Urine RBC (Auto) Ur Epithelial Cells Hyaline Casts Urine Mucus 10/22/17 10/22/17 10/22/17 09:50 09:50 09:50 WBC 8.4 D RBC 3.11 L Hgb 11.3 D Hct 32.9 MCV 105.9 H MCH 36.4 H MCHC 34.4 RDW 17.9 H Plt Count 71 L D MPV 9.3 Neutrophils % Neutrophils % (Manual) Band Neutrophils % Lymphocytes % Lymphocytes % (Manual) Monocytes % (Manual) Eosinophils % (Manual) Basophils % (Manual) Platelet Estimate Platelet Comment Macrocytosis PT with INR INR Sodium Potassium 3.8 Chloride Carbon Dioxide Anion Gap BUN Creatinine Creat Clearance w eGFR Random Glucose Lactic Acid Calcium Phosphorus Magnesium 1.3 L Total Bilirubin AST ALT Alkaline Phosphatase Ammonia Total Protein Albumin Urine Color Urine Appearance Urine pH Ur Specific [place] Urine Protein Urine Glucose (UA) Urine Ketones Urine Blood Urine Nitrite Urine Bilirubin Urine Urobilinogen Ur Leukocyte Esterase Urine WBC (Auto) Urine RBC (Auto) Ur Epithelial Cells Hyaline Casts Urine Mucus 10/22/17 09:50 WBC RBC Hgb Hct MCV MCH MCHC RDW Plt Count MPV Neutrophils % Neutrophils % (Manual) Band Neutrophils % Lymphocytes % Lymphocytes % (Manual) Monocytes % (Manual) Eosinophils % (Manual) Basophils % (Manual) Platelet Estimate Platelet Comment Macrocytosis PT with INR INR Sodium Potassium Chloride Carbon Dioxide Anion Gap BUN Creatinine Creat Clearance w eGFR Random Glucose Lactic Acid 2.2 H* Calcium Phosphorus Magnesium Total Bilirubin AST ALT Alkaline Phosphatase Ammonia Total Protein Albumin Urine Color Urine Appearance Urine pH Ur Specific [place]inder Urine Protein Urine Glucose (UA) Urine Ketones Urine Blood Urine Nitrite Urine Bilirubin Urine Urobilinogen Ur Leukocyte Esterase Urine WBC (Auto) Urine RBC (Auto) Ur Epithelial Cells Hyaline Casts Urine Mucus Imaging - Results Ultrasound: Report Reviewed ( cholelithiasis with sludge and fatty liver) Problem List - Problems (1) Hepatitis Code(s): K75.9 - INFLAMMATORY LIVER DISEASE, UNSPECIFIED (2) Cholestasis Code(s): K83.1 - OBSTRUCTION OF BILE DUCT (3) Alcohol abuse Code(s): F10.10 - ALCOHOL ABUSE, UNCOMPLICATED (4) Non-alcoholic fatty liver disease Code(s): K76.0 - FATTY (CHANGE OF) LIVER, NOT ELSEWHERE CLASSIFIED (5) Cholelithiasis Code(s): K80.20 - CALCULUS OF GALLBLADDER W/O CHOLECYSTITIS W/O OBSTRUCTION (6) Sepsis Code(s): A41.9 - SEPSIS, UNSPECIFIED ORGANISM Qualifiers: Sepsis type: sepsis due to unspecified organism Qualified Code(s): A41.9 - Sepsis, unspecified organism (7) UTI (urinary tract infection) Code(s): N39.0 - URINARY TRACT INFECTION, SITE NOT SPECIFIED Qualifiers: Urinary tract infection type: site unspecified Hematuria presence: without hematuria Qualified Code(s): N39.0 - Urinary tract infection, site not specified Assessment/Plan A 62-year-old female with ongoing alcohol abuse admitted with what appears to be urinary tract infection. Has mild hepatitis with cholestasis in the setting of cholelithiasis, biliary sludge and fatty liver disease. Unclear if liver cirrhosis is present. She may have mild alcoholic hepatitis. No obvious signs on imaging and physical exam to suspect ascites. BUN and creatinine are normal. There is no stigmata of recent, or active gastrointestinal bleeding. Agree with current management. Alcohol withdrawal protocol. Substance abuse counseling. MRI of the abdomen with contrast and MRCP Viral, autoimmune hepatitis profiles. B12, B1, folate Plan EGD for esophageal varices surveillance, Discussed with the patient. Screening colonoscopy can be done as an outpatient, or with upper endoscopy.
[2017-10-22 10:27] LABS: HEMATOCRIT 32.9 % (32.4-45.2); HEMOGLOBIN 11.3 GM/dL (10.7-15.3); MCH 36.4 pg (25.7-33.7); MCHC 34.4 g/dl (32.0-36.0); MEAN CELL VOLUME 105.9 fl (80-96); MEAN PLT VOLUME 9.3 fl (7.5-11.1); PLATELET COUNT 71 K/MM3 (134-434); RBC 3.11 M/mm3 (3.60-5.2); RDW 17.9 % (11.6-15.6); WHITE BLOOD COUNT 8.4 K/mm3 (4.0-10.0)
--- NOTE | 2017-10-22 10:30 | EKG ---
Test Reason : Blood Pressure : / mmHG Vent. Rate : 093 BPM Atrial Rate : 093 BPM P-R Int : 158 ms QRS Dur : 078 ms QT Int : 410 ms P-R-T Axes : 034 -07 045 degrees QTc Int : 509 ms NORMAL SINUS RHYTHM INFERIOR INFARCT (CITED ON OR BEFORE 27-JAN-2017) ANTEROSEPTAL INFARCT (CITED ON OR BEFORE 27-JAN-2017) ABNORMAL ECG WHEN COMPARED WITH ECG OF 27-JAN-2017 16:52, NONSPECIFIC T WAVE ABNORMALITY NO LONGER EVIDENT IN LATERAL LEADS Confirmed by PONCE OJNES MD ([id number]) on 10/22/2017 10:30:39 AM Referred By: Confirmed By:PONCE JONES MD
[2017-10-22] MEDS ORDERED: MAGNESIUM SULFATE IN WATER 2 GM/50 ML IVPB IVPB ONE ×2 (11:36→17:30)
[2017-10-22] MEDS: CEFTRIAXONE IN IS-OSM DEXTROSE 2 GM/50 ML BAG IVPB SCH (11:46)
[2017-10-22] MEDS: MAGNESIUM OXIDE 400 MG TABLET (FP) PO SCH ×2 (11:48→21:33)
[2017-10-22] MEDS: HEPARIN NA (PORCINE) 5,000 UNITS/ML 1ML VIAL SQ SCH ×2 (15:21→21:33)
[2017-10-22] MEDS: ACETAMINOPHEN 325 MG TABLET (FP) PO PRN (16:39)
[2017-10-22 17:11] LABS: LIPASE 187 U/L (73-393)
--- NOTE | 2017-10-22 18:07 | PN ---
Teaching Attending Note Name of Resident: Fatoumata Scanlon ATTENDING PHYSICIAN STATEMENT I saw and evaluated the patient. I reviewed the resident's note and discussed the case with the resident. I agree with the resident's findings and plan as documented with exceptions mentioned below. SUBJECTIVE: Patient seen and examined. weakness improved, Denies any anxiety or tremors. Reports some dysuria, but no abdominal pain, nausea, vomiting, new cough or dyspnea. OBJECTIVE: Vital Signs Period Temp Pulse Resp BP Sys/Lau Pulse Ox Last 24 Hr 98 F-102.9 F 88-128 16-20 98-152/63-82 94-99 Intake & Output 10/19/17 10/20/17 10/21/17 10/22/17 23:59 23:59 23:59 23:59 Intake Total 250 Balance 250 Weight 137 lb 137 lb General: sitting in bed in no acute distress Chest: CTAB, no rales or wheezing abdomen: soft, obese, NT throughout, no voluntary or involuntary guarding or rigidity, no suprapubic or CVA tenderness, positive bowel sounds CVS:S1S2 regular Extremities: mild UE tremors, no edema Home Medication List Medication Instructions Recorded Confirmed Type NK [No Known Home Medication] 10/22/17 10/22/17 History Active Medications Generic Name Dose Route Start Last Admin Trade Name Freq PRN Reason Stop Dose Admin Acetaminophen 650 mg 10/22/17 16:18 10/22/17 16:39 Tylenol - PO 650 mg Q4H PRN Administration FEVER Chlordiazepoxide HCl 15 mg 10/22/17 05:52 Librium - PO Q6H PRN ALCOHOL WITHDRAWAL Heparin Sodium (Porcine) 5,000 unit 10/22/17 14:00 10/22/17 15:21 Heparin - SQ 5,000 unit TID LISET Administration Sodium Chloride 1,000 mls @ 100 mls/hr 10/22/17 04:15 10/22/17 04:58 Normal Saline - IV 100 mls/hr ASDIR LISET Administration CEFTRIAXONE IN IS-OSM DEXTROSE 2 gm in 50 mls @ 100 mls/hr 10/22/17 10:00 11:46 Ceftriaxone 2 Gm-D5w Bag IVPB 100 mls/hr DAILY LISET Administration MAGNESIUM SULFATE IN WATER 2 gm in 50 mls @ 50 mls/hr 10/22/17 17:30 Magnesium Sulf 2 G/50 Ml Bag IVPB 10/22/17 18:29 ONCE ONE Magnesium Oxide 400 mg 10/22/17 10:00 10/22/17 11:48 Mag-Ox - PO 400 mg BID LISET Administration Laboratory Results - last 24 hr 10/21/17 10/21/17 10/21/17 19:35 19:45 19:45 WBC 13.8 H RBC 3.55 L Hgb 13.0 Hct 37.6 MCV 106.0 H MCH 36.5 H D MCHC 34.4 RDW 17.7 H D Plt Count 97 L D MPV 9.9 D Neutrophils % No Result Required. Neutrophils % (Manual) 53.0 Band Neutrophils % 28.0 Lymphocytes % No Result Required. Lymphocytes % (Manual) 5.0 L Monocytes % (Manual) 10 Eosinophils % (Manual) 0.0 Basophils % (Manual) 0.0 Platelet Estimate Decreased Platelet Comment No clumping noted Macrocytosis 2+ PT with INR INR Sodium 134 L Potassium 3.0 L Chloride 90 L Carbon Dioxide 32 Anion Gap 12 BUN 6 L Creatinine 0.9 Creat Clearance w eGFR > 60 Random Glucose 111 H Lactic Acid Calcium 9.1 Phosphorus Magnesium 0.9 L Ferritin Total Bilirubin 4.2 H D AST 164 H ALT 39 Alkaline Phosphatase 562 H Ammonia Total Protein 9.0 H Albumin 4.1 Lipase Vitamin B12 Serum Folate Urine Color Katerina Urine Appearance Slcloudy Urine pH 6.0 Ur Specific [place] 1.024 Urine Protein 3+ H Urine Glucose (UA) Negative Urine Ketones Negative Urine Blood 1+ H Urine Nitrite Negative Urine Bilirubin 2.0 Urine Urobilinogen 4.0 e.u/dl H Ur Leukocyte Esterase 1+ H Urine WBC (Auto) 80 Urine RBC (Auto) 9 Ur Epithelial Cells Few Hyaline Casts 6 Urine Mucus Moderate 10/21/17 10/21/17 10/21/17 19:45 19:45 19:45 WBC RBC Hgb Hct MCV MCH MCHC RDW Plt Count MPV Neutrophils % Neutrophils % (Manual) Band Neutrophils % Lymphocytes % Lymphocytes % (Manual) Monocytes % (Manual) Eosinophils % (Manual) Basophils % (Manual) Platelet Estimate Platelet Comment Macrocytosis PT with INR 18.00 H INR 1.59 H D Sodium Potassium Chloride Carbon Dioxide Anion Gap BUN Creatinine Creat Clearance w eGFR Random Glucose Lactic Acid 4.3 H* Calcium Phosphorus Magnesium Ferritin Total Bilirubin AST ALT Alkaline Phosphatase Ammonia 100.80 H Total Protein Albumin Lipase Vitamin B12 Serum Folate Urine Color Urine Appearance Urine pH Ur Specific [place] Urine Protein Urine Glucose (UA) Urine Ketones Urine Blood Urine Nitrite Urine Bilirubin Urine Urobilinogen Ur Leukocyte Esterase Urine WBC (Auto) Urine RBC (Auto) Ur Epithelial Cells Hyaline Casts Urine Mucus 10/22/17 10/22/17 10/22/17 04:53 05:43 05:58 WBC RBC Hgb Hct MCV MCH MCHC RDW Plt Count MPV Neutrophils % Neutrophils % (Manual) Band Neutrophils % Lymphocytes % Lymphocytes % (Manual) Monocytes % (Manual) Eosinophils % (Manual) Basophils % (Manual) Platelet Estimate Platelet Comment Macrocytosis PT with INR INR Sodium 140 Potassium 4.0 Chloride 102 Carbon Dioxide 26 Anion Gap 12 BUN 10 Creatinine 0.8 Creat Clearance w eGFR Random Glucose 119 H Lactic Acid 2.8 H* Calcium 7.5 L Phosphorus 3.0 Magnesium Cancelled 1.0 L Ferritin Total Bilirubin AST ALT Alkaline Phosphatase Ammonia Total Protein Albumin Lipase Vitamin B12 Serum Folate Urine Color Urine Appearance Urine pH Ur Specific [place] Urine Protein Urine Glucose (UA) Urine Ketones Urine Blood Urine Nitrite Urine Bilirubin Urine Urobilinogen Ur Leukocyte Esterase Urine WBC (Auto) Urine RBC (Auto) Ur Epithelial Cells Hyaline Casts Urine Mucus 10/22/17 10/22/17 10/22/17 09:50 09:50 09:50 WBC 8.4 D RBC 3.11 L Hgb 11.3 D Hct 32.9 MCV 105.9 H MCH 36.4 H MCHC 34.4 RDW 17.9 H Plt Count 71 L D MPV 9.3 Neutrophils % Neutrophils % (Manual) Band Neutrophils % Lymphocytes % Lymphocytes % (Manual) Monocytes % (Manual) Eosinophils % (Manual) Basophils % (Manual) Platelet Estimate Platelet Comment Macrocytosis PT with INR INR Sodium Potassium 3.8 Chloride Carbon Dioxide Anion Gap BUN Creatinine Creat Clearance w eGFR Random Glucose Lactic Acid Calcium Phosphorus Magnesium 1.3 L Ferritin Total Bilirubin AST ALT Alkaline Phosphatase Ammonia Total Protein Albumin Lipase Vitamin B12 Serum Folate Urine Color Urine Appearance Urine pH Ur Specific [place] Urine Protein Urine Glucose (UA) Urine Ketones Urine Blood Urine Nitrite Urine Bilirubin Urine Urobilinogen Ur Leukocyte Esterase Urine WBC (Auto) Urine RBC (Auto) Ur Epithelial Cells Hyaline Casts Urine Mucus 10/22/17 10/22/17 10/22/17 09:50 14:35 16:15 WBC RBC Hgb Hct MCV MCH MCHC RDW Plt Count MPV Neutrophils % Neutrophils % (Manual) Band Neutrophils % Lymphocytes % Lymphocytes % (Manual) Monocytes % (Manual) Eosinophils % (Manual) Basophils % (Manual) Platelet Estimate Platelet Comment Macrocytosis PT with INR INR Sodium Potassium Chloride Carbon Dioxide Anion Gap BUN Creatinine Creat Clearance w eGFR Random Glucose Lactic Acid 2.2 H* Calcium Phosphorus Magnesium 1.2 L Ferritin Total Bilirubin AST ALT Alkaline Phosphatase Ammonia Total Protein Albumin Lipase 187 Vitamin B12 1020 H Serum Folate 15 Urine Color Urine Appearance Urine pH Ur Specific [place] Urine Protein Urine Glucose (UA) Urine Ketones Urine Blood Urine Nitrite Urine Bilirubin Urine Urobilinogen Ur Leukocyte Esterase Urine WBC (Auto) Urine RBC (Auto) Ur Epithelial Cells Hyaline Casts Urine Mucus 10/22/17 16:15 WBC RBC Hgb Hct MCV MCH MCHC RDW Plt Count MPV Neutrophils % Neutrophils % (Manual) Band Neutrophils % Lymphocytes % Lymphocytes % (Manual) Monocytes % (Manual) Eosinophils % (Manual) Basophils % (Manual) Platelet Estimate Platelet Comment Macrocytosis PT with INR INR Sodium Potassium Chloride Carbon Dioxide Anion Gap BUN Creatinine Creat Clearance w eGFR Random Glucose Lactic Acid Calcium Phosphorus Magnesium Ferritin 1198.295 H Total Bilirubin AST ALT Alkaline Phosphatase Ammonia Total Protein Albumin Lipase Vitamin B12 Serum Folate Urine Color Urine Appearance Urine pH Ur Specific [place] Urine Protein Urine Glucose (UA) Urine Ketones Urine Blood Urine Nitrite Urine Bilirubin Urine Urobilinogen Ur Leukocyte Esterase Urine WBC (Auto) Urine RBC (Auto) Ur Epithelial Cells Hyaline Casts Urine Mucus ASSESSMENT AND PLAN: 62 yof with ETOH abuse (last reported drink 1 week ago), gout admitted with weakness, UTI. -Sepsis, likely secondary to UTI, check Flu swab (low suspicion) -Mild alcohol hepatitis -Abnormal LFTs with cholestasis/gall bladder sludge -Hyperammonemia, no clinical evidence of hepatic encephalopathy -Alcohol abuse Plan: IVF, ceftriaxone day 1, follow up blood/urine cultures. GI input appreciated. Follow up MRCP. Trend LFTs. Follow up viral/autoimmune hepatitis panel. ALcohol withdrawal protocol as indicated. DVTPPx with heparin Plan discussed with patient and all questions answered.
[2017-10-23] MEDS: ACETAMINOPHEN 325 MG TABLET (FP) PO PRN ×2 (00:58→21:52)
[2017-10-23] MEDS: SODIUM CHLORIDE 1,000 ML IV SCH ×2 (04:10→05:54)
[2017-10-23] MEDS: HEPARIN NA (PORCINE) 5,000 UNITS/ML 1ML VIAL SQ SCH (05:53)
--- NOTE | 2017-10-23 07:50 | PN ---
GI Progress Note Subjective: Dr. Mccarty covering for Dr. Berkowitz No acute events Ms. Perez states feeling well States that she could not perform MRI due to claustrophobia - Objective Vital Signs: Vital Signs Temperature 98.7 F 10/23/17 06:03 Pulse Rate 101 H 10/23/17 02:00 Respiratory Rate 20 10/23/17 02:00 Blood Pressure 135/61 10/23/17 02:00 O2 Sat by Pulse Oximetry (%) 97 10/22/17 22:00 Constitutional: Calm Eyes: Yes: Sclera Icterus Cardiovascular: Yes: Regular Rate and Rhythm. No: Murmur Respiratory: Yes: CTA Bilaterally Gastrointestinal Inspection: No: Distention ...Auscultate: Yes: Normoactive Bowel Sounds ...Palpate: Yes: Hepatomegaly, Soft. No: Splenomegaly, Tenderness ...Percussion: No: Tympanitic Edema: No (No LE edema) Neurological: Yes: Alert, Oriented (x3). No: Asterixis Labs: Labs: Labs pending for this morning Problem List - Problems (1) Cholestasis Assessment/Plan: Suspected underlying alcoholic liver disease: MRI/MRCP for further evaluation of the biliary tract. Ms. Perez states that she would be willing to have it performed if she was given a sedative. Follow LFT's / serologies Consider alternate Abx choice as ceftriaxone could contribute to cholestasis Dr. Berkowitz resumes care 10/25 Code(s): K83.1 - OBSTRUCTION OF BILE DUCT
[2017-10-23 08:41] LABS: BASO % 0.5 % (0-2.0); EOS % 0.2 % (0-4.5); HEMATOCRIT 30.8 % (32.4-45.2); HEMOGLOBIN 10.7 GM/dL (10.7-15.3); LYMPH % 17.3 % (8-40); MCH 36.4 pg (25.7-33.7); MCHC 34.7 g/dl (32.0-36.0); MEAN CELL VOLUME 105.1 fl (80-96); MEAN PLT VOLUME 8.5 fl (7.5-11.1); MONO % 8.9 % (3.8-10.2); NEUT % 73.1 % (42.8-82.8); PLATELET COUNT 70 K/MM3 (134-434); RBC 2.92 M/mm3 (3.60-5.2); RDW 17.6 % (11.6-15.6); WHITE BLOOD COUNT 6.9 K/mm3 (4.0-10.0)
[2017-10-23 08:56] LABS: INR 1.59 (0.82-1.09)
[2017-10-23 09:10] LABS: ANION GAP 13 (8-16); BILIRUBIN,DIRECT 2.4 mg/dL (0.0-0.2); BLOOD UREA NITROGEN 6 mg/dL (7-18); CALCIUM 7.5 mg/dL (8.5-10.1); CHLORIDE 100 mmol/L (98-107); CO2 26 mmol/L (21-32); CREATININE 0.4 mg/dL (0.55-1.02); GLUCOSE,RANDOM 90 mg/dL (74-106); MAGNESIUM 2.4 mg/dL (1.8-2.4); PHOSPHOROUS 1.7 mg/dL (2.5-4.9); POTASSIUM 3.4 mmol/L (3.5-5.1); SGOT/AST 132 U/L (15-37); SGPT/ALT 34 U/L (12-78); SODIUM 139 mmol/L (136-145)
[2017-10-23 09:12] LABS: ALK PHOS 375 U/L (45-117); TOT PROT 6.7 g/dl (6.4-8.2)
--- NOTE | 2017-10-23 09:59 | PN ---
Physical Exam: SUBJECTIVE: Patient seen and examined. Did not Abdominal MRI yesterday due to claustrophobia; Spiked fever last night 102.9F. Patient offers no complaints this AM. Denies dysuria, abdominal pain, sob, or chest pain. No nausea or vomiting. OBJECTIVE: Vital Signs Period Temp Pulse Resp BP Sys/Lau Pulse Ox Last 24 Hr 98.7 F-102.9 F 84-110 18-20 117-135/61-84 96-97 GENERAL: lying comfortable in bed, nad LUNGS: CTAB HEART: rrr, normal s1/s2, no m/r/g appreciated ABDOMEN: Soft, NTND, no guarding or rebound, + bowel sounds : no suprapubic or CVA tenderness LOWER EXTREMITIES: 2+ DP pulses, wwp, no edema NEUROLOGICAL: Cranial nerves II through XII grossly intact. Normal speech, gait not observed. CBC, BMP 10/23/17 08:00 10/23/17 08:00 Calcium 7.5 L Phosphorus 1.7 L Magnesium 2.4 Hepatic Panel Total Bilirubin 3.0 mg/dL (0.2-1.0) H D 10/23/17 08:00 Direct Bilirubin 2.4 mg/dL (0.0-0.2) H 10/23/17 08:00 AST 132 U/L (15-37) H 10/23/17 08:00 ALT 34 U/L (12-78) 10/23/17 08:00 Alkaline Phosphatase 375 U/L (45-117) H 10/23/17 08:00 Albumin 3.0 g/dl (3.4-5.0) L 10/23/17 08:00 INR, PTT INR 1.59 (0.82-1.09) H 10/23/17 08:00 10/22/17 10/22/17 10/22/17 16:15 16:15 16:15 Calcium Phosphorus Magnesium Ferritin 1198.295 H Lipase 187 Tumor Marker AFP Pending Vitamin B12 1020 H Serum Folate 15 Microbiology 10/21/17 19:45 Blood - Peripheral Venous Blood Culture - Preliminary NO GROWTH OBTAINED AFTER 48 HOURS, INCUBATION TO CONTINUE FOR 3 DAYS. 10/21/17 19:45 Blood - Peripheral Venous Blood Culture - Preliminary NO GROWTH OBTAINED AFTER 48 HOURS, INCUBATION TO CONTINUE FOR 3 DAYS. 10/21/17 19:35 Urine - Urine Clean Catch Urine Culture - Final NO GROWTH OBTAINED Active Medications Acetaminophen (Tylenol -) 650 mg PO Q4H PRN PRN Reason: FEVER Last Admin: 10/23/17 00:58 Dose: 650 mg Chlordiazepoxide HCl (Librium -) 15 mg PO Q6H PRN PRN Reason: ALCOHOL WITHDRAWAL Last Admin: 10/23/17 13:11 Dose: 15 mg Sodium Chloride (Normal Saline -) 1,000 mls @ 100 mls/hr IV ASDIR LISET Last Admin: 10/23/17 05:54 Dose: Not Given CEFTRIAXONE IN IS-OSM DEXTROSE (Ceftriaxone 2 Gm-D5w Bag) 2 gm in 50 mls @ 100 mls/hr IVPB DAILY LISET Last Admin: 10/23/17 10:06 Dose: 100 mls/hr ASSESSMENT/PLAN: 62yo F with PMH of EtOH abuse, gout, recurrent UTIs, and hypokalemia who p/w with weakness and UTI and found to have sepsis likely 2/2 UTI. #Sepsis likely 2/2 UTI, CXR neg, UA: pyuria, 1+LE, but UCx NG *Pt continues to have spike Temp, will consult ID -c/w Ceftriaxone 2gm IV daily, day 2 -f/u blood cx (NGTD x 24H) #alcoholic hepatitis -GI consult -Abdominal MRI today + Ativan 0.5mg once -f/u liver serologies and viral panel #hypomagnesemia, s/p Mg 8g IV, Mg 2.4 today -Magnesium Oxide 400mg PO BID -check levels daily #EtOH abuse, reports last drink 1 week ago, no withdrawal symptoms -Librium PRN #FEN: NS@100cc / K and Phos repleted / Na controlled diet #PPX: Hep SQ TID #DISPO: M/S Full code d/w Dr. Leo Scanlon MD PGY1- Internal Medicine Visit type - Emergency Visit Emergency Visit: No - New Patient This patient is new to me today: No - Critical Care Critical Care patient: No
[2017-10-23] MEDS ORDERED: POTASSIUM PHOSPHATE 40 MM in SODIUM CHLORIDE 500 ML IVPB ONE (10:04)
[2017-10-23] MEDS: CEFTRIAXONE IN IS-OSM DEXTROSE 2 GM/50 ML BAG IVPB SCH (10:06)
[2017-10-23] MEDS ORDERED: LORazepam 2 MG/ML SDV VIAL IVPUSH ONE ×2 (10:11→13:15)
--- NOTE | 2017-10-23 10:29 | PN ---
Teaching Attending Note Name of Resident: Fatoumata Scanlon ATTENDING PHYSICIAN STATEMENT I saw and evaluated the patient. I reviewed the resident's note and discussed the case with the resident. I agree with the resident's findings and plan as documented with exceptions mentioned below. SUBJECTIVE: Patient seen and examined. Denies any nausea, vomiting, abdominal pain,dyspnea, cough or respiratory symptoms. urinary symptoms have resolved. OBJECTIVE: Vital Signs Period Temp Pulse Resp BP Sys/Lau Pulse Ox Last 24 Hr 98.7 F-102.9 F 84-110 18-20 117-135/61-84 96-97 Intake & Output 10/20/17 10/21/17 10/22/17 10/23/17 23:59 23:59 23:59 23:59 Intake Total 850 1200 Balance 850 1200 Weight 137 lb 137 lb 138 lb 1 oz general: sitting in bed in no acute distress Chest: CTAB, no rales or wheezing appreciated Abdomen:soft, NT, ND, positive bowel sounds, no suprapubic or CVA tenderness extremities: no edema Home Medication List Medication Instructions Recorded Confirmed Type NK [No Known Home Medication] 10/22/17 10/22/17 History Active Medications Generic Name Dose Route Start Last Admin Trade Name Freq PRN Reason Stop Dose Admin Acetaminophen 650 mg 10/22/17 16:18 10/23/17 00:58 Tylenol - PO 650 mg Q4H PRN Administration FEVER Chlordiazepoxide HCl 15 mg 10/22/17 05:52 Librium - PO Q6H PRN ALCOHOL WITHDRAWAL Sodium Chloride 1,000 mls @ 100 mls/hr 10/22/17 04:15 10/23/17 05:54 Normal Saline - IV Not Given ASDIR LISET CEFTRIAXONE IN IS-OSM DEXTROSE 2 gm in 50 mls @ 100 mls/hr 10/22/17 10:00 11:46 Ceftriaxone 2 Gm-D5w Bag IVPB 100 mls/hr DAILY LISET Administration Potassium Phosphate 40 mm/ 263.3333 mls @ 62.5 mls/hr 10/23/17 10:04 Sodium Chloride IVPB 10/23/17 14:16 ONCE ONE Lorazepam 1 mg 10/23/17 10:11 Ativan Injection - IVPUSH 10/23/17 10:12 ONCE ONE Laboratory Results - last 24 hr 10/22/17 10/22/17 10/22/17 09:50 09:50 09:50 WBC 8.4 D RBC 3.11 L Hgb 11.3 D Hct 32.9 MCV 105.9 H MCH 36.4 H MCHC 34.4 RDW 17.9 H Plt Count 71 L D MPV 9.3 Neutrophils % Lymphocytes % Monocytes % Eosinophils % Basophils % PT with INR INR Sodium Potassium 3.8 Chloride Carbon Dioxide Anion Gap BUN Creatinine Creat Clearance w eGFR Random Glucose Lactic Acid Calcium Phosphorus Magnesium 1.3 L Ferritin Total Bilirubin Direct Bilirubin AST ALT Alkaline Phosphatase Total Protein Albumin Lipase Vitamin B12 Serum Folate 10/22/17 10/22/17 10/22/17 09:50 14:35 16:15 WBC RBC Hgb Hct MCV MCH MCHC RDW Plt Count MPV Neutrophils % Lymphocytes % Monocytes % Eosinophils % Basophils % PT with INR INR Sodium Potassium Chloride Carbon Dioxide Anion Gap BUN Creatinine Creat Clearance w eGFR Random Glucose Lactic Acid 2.2 H* Calcium Phosphorus Magnesium 1.2 L Ferritin Total Bilirubin Direct Bilirubin AST ALT Alkaline Phosphatase Total Protein Albumin Lipase 187 Vitamin B12 1020 H Serum Folate 10/22/17 10/23/17 10/23/17 16:15 08:00 08:00 WBC 6.9 RBC 2.92 L Hgb 10.7 Hct 30.8 L MCV 105.1 H MCH 36.4 H MCHC 34.7 RDW 17.6 H Plt Count 70 L MPV 8.5 Neutrophils % 73.1 Lymphocytes % 17.3 D Monocytes % 8.9 Eosinophils % 0.2 Basophils % 0.5 PT with INR 18.00 H INR 1.59 H Sodium Potassium Chloride Carbon Dioxide Anion Gap BUN Creatinine Creat Clearance w eGFR Random Glucose Lactic Acid Calcium Phosphorus Magnesium Ferritin 1198.295 H Total Bilirubin Direct Bilirubin AST ALT Alkaline Phosphatase Total Protein Albumin Lipase Vitamin B12 Serum Folate 10/23/17 08:00 WBC RBC Hgb Hct MCV MCH MCHC RDW Plt Count MPV Neutrophils % Lymphocytes % Monocytes % Eosinophils % Basophils % PT with INR INR Sodium 139 Potassium 3.4 L Chloride 100 Carbon Dioxide 26 Anion Gap 13 BUN 6 L Creatinine 0.4 L Creat Clearance w eGFR > 60 Random Glucose 90 Lactic Acid Calcium 7.5 L Phosphorus 1.7 L Magnesium 2.4 Ferritin Total Bilirubin 3.0 H D Direct Bilirubin 2.4 H AST 132 H ALT 34 Alkaline Phosphatase 375 H Total Protein 6.7 Albumin 3.0 L Lipase Vitamin B12 Serum Folate Microbiology 10/21/17 19:45 Blood - Peripheral Venous Blood Culture - Preliminary NO GROWTH OBTAINED AFTER 24 HOURS, INCUBATION TO CONTINUE FOR 4 DAYS. 10/21/17 19:45 Blood - Peripheral Venous Blood Culture - Preliminary NO GROWTH OBTAINED AFTER 24 HOURS, INCUBATION TO CONTINUE FOR 4 DAYS. ASSESSMENT AND PLAN: 62 yof with ETOH abuse (last reported drink 1 week ago), gout admitted with weakness, UTI. -Sepsis, likely secondary to UTI, check Flu swab (low suspicion) -Mild alcohol hepatitis -Abnormal LFTs with cholestasis/gall bladder sludge -Hyperammonemia, no clinical evidence of hepatic encephalopathy -Alcohol abuse Plan: IVF, ceftriaxone day 2, follow up blood/urine cultures. Persistent fevers, though non focal exam, ID input. GI input appreciated. Unable to do MRCP given claustrophobia. Agreable to try with premedication, will re-attempt with Ativan. LFTs improving already, hold off on changing antibiotics for now. Follow up viral/autoimmune hepatitis panel. Alcohol withdrawal protocol as indicated. DVTPPx with heparin Plan discussed with patient and all questions answered.
[2017-10-23] MEDS: MAGNESIUM OXIDE 400 MG TABLET (FP) PO SCH (12:42)
[2017-10-23] MEDS: chlordiazePOXIDE 5 MG CAPSULE PO PRN ×2 (13:11→21:20)
[2017-10-24] MEDS: SODIUM CHLORIDE 1,000 ML IV SCH ×2 (05:48→16:13)
[2017-10-24 08:20] LABS: BASO % 0.6 % (0-2.0); EOS % 1.2 % (0-4.5); HEMATOCRIT 32.2 % (32.4-45.2); LYMPH % 22.4 % (8-40); MCH 36.4 pg (25.7-33.7); MCHC 34.2 g/dl (32.0-36.0); MEAN CELL VOLUME 106.2 fl (80-96); MEAN PLT VOLUME 8.8 fl (7.5-11.1); MONO % 12.9 % (3.8-10.2); NEUT % 62.9 % (42.8-82.8); PLATELET COUNT 90 K/MM3 (134-434); RBC 3.03 M/mm3 (3.60-5.2); RDW 17.2 % (11.6-15.6); WHITE BLOOD COUNT 6.9 K/mm3 (4.0-10.0)
[2017-10-24 08:39] LABS: INR 1.42 (0.82-1.09); PROTHROMBIN TIME (PATIENT) 16.1 SEC (9.98-11.88)
[2017-10-24 08:49] LABS: ANION GAP 12 (8-16); BILIRUBIN,DIRECT 2.3 mg/dL (0.0-0.2); BLOOD UREA NITROGEN 5 mg/dL (7-18); CALCIUM 7.8 mg/dL (8.5-10.1); CHLORIDE 102 mmol/L (98-107); CO2 26 mmol/L (21-32); CREATININE 0.4 mg/dL (0.55-1.02); GLUCOSE,RANDOM 94 mg/dL (74-106); POTASSIUM 3.5 mmol/L (3.5-5.1); SGOT/AST 128 U/L (15-37); SGPT/ALT 38 U/L (12-78); SODIUM 140 mmol/L (136-145)
[2017-10-24 08:52] LABS: ALK PHOS 428 U/L (45-117); TOT PROT 7.1 g/dl (6.4-8.2)
[2017-10-24] MEDS: chlordiazePOXIDE 5 MG CAPSULE PO PRN ×2 (09:03→21:32)
[2017-10-24] MEDS ORDERED: CEFTRIAXONE 2 GM in DEXTROSE 5%-WATER - 100 ML IVPB SCH (10:00)
--- NOTE | 2017-10-24 10:10 | PN ---
Progress Note (short form) - Note Progress Note: ID Full note dictated and discussed Dr Bailey Selected Entries 10/24/17 06:20 Temperature 98.0 F Pulse Rate 76 Respiratory 18 Rate Blood Pressure 103/63 Microbiology 10/21/17 19:35 Urine - Urine Clean Catch Urine Culture - Final NO GROWTH OBTAINED 10/21/17 19:45 Blood - Peripheral Venous Blood Culture - Preliminary NO GROWTH OBTAINED AFTER 48 HOURS, INCUBATION TO CONTINUE FOR 3 DAYS. 10/21/17 19:45 Blood - Peripheral Venous Blood Culture - Preliminary NO GROWTH OBTAINED AFTER 48 HOURS, INCUBATION TO CONTINUE FOR 3 DAYS. Laboratory Tests 10/21/17 10/21/17 10/24/17 19:35 19:45 07:45 WBC 13.8 H 6.9 Hgb 11.0 Hct 32.2 L Plt Count 90 L D BUN Creatinine Creat Clearance w eGFR Total Bilirubin AST Alkaline Phosphatase Ur Leukocyte Esterase 1+ H Urine WBC (Auto) 80 Urine RBC (Auto) 9 10/24/17 07:45 WBC Hgb Hct Plt Count BUN 5 L Creatinine 0.4 L Creat Clearance w eGFR > 60 Total Bilirubin 3.0 H AST 128 H Alkaline Phosphatase 428 H Ur Leukocyte Esterase Urine WBC (Auto) Urine RBC (Auto) Assessment Suspect UTI ( culture neg) Plan Could switch po vantin today 100mg bid 5 days Anjali MACKAY Problem List - Problems (1) Cirrhosis Code(s): K74.60 - UNSPECIFIED CIRRHOSIS OF LIVER (2) Alcohol abuse Code(s): F10.10 - ALCOHOL ABUSE, UNCOMPLICATED (3) UTI (urinary tract infection) Code(s): N39.0 - URINARY TRACT INFECTION, SITE NOT SPECIFIED Qualifiers: Urinary tract infection type: site unspecified Hematuria presence: without hematuria Qualified Code(s): N39.0 - Urinary tract infection, site not specified
--- NOTE | 2017-10-24 10:42 | PN ---
Teaching Attending Note Name of Resident: Alonzo Bailey SUBJECTIVE: patient seen and examined. eating better, no pain or new complaints. Denies any urinary symptoms now. No fevers/chills. OBJECTIVE: Vital Signs Period Temp Pulse Resp BP Sys/Lau Pulse Ox Last 24 Hr 98.0 F-100.2 F 57-76 18 103-143/63-82 97 Intake & Output 10/21/17 10/22/17 10/23/17 10/24/17 23:59 23:59 23:59 23:59 Intake Total 850 3170 1428 Balance 850 3170 1428 Weight 137 lb 137 lb 138 lb 1 oz 135 lb General: sitting in bed in no acute distress Abdomen:soft, nT, ND, positive bowel sounds, hepatomegaly 3 cm below liver margin, no CVA tenderness CVS;S1S2 regular Chest: CTAB, no rales or wheezing extremities: no edema Home Medication List Medication Instructions Recorded Confirmed Type NK [No Known Home Medication] 10/22/17 10/22/17 History Active Medications Generic Name Dose Route Start Last Admin Trade Name Martha PRN Reason Stop Dose Admin Acetaminophen 650 mg 10/22/17 16:18 10/23/17 21:52 Tylenol - PO 650 mg Q4H PRN Administration FEVER Cefpodoxime Proxetil 100 mg 10/24/17 10:15 Vantin (Nf) - PO BID LISET Chlordiazepoxide HCl 15 mg 10/24/17 07:16 10/24/17 09:03 Librium - PO 15 mg Q6H PRN Administration ALCOHOL WITHDRAWAL Sodium Chloride 1,000 mls @ 100 mls/hr 10/24/17 07:16 Normal Saline - IV ASDIR [facility] Laboratory Results - last 24 hr 10/24/17 10/24/17 10/24/17 07:45 07:45 07:45 WBC 6.9 RBC 3.03 L Hgb 11.0 Hct 32.2 L MCV 106.2 H MCH 36.4 H MCHC 34.2 RDW 17.2 H Plt Count 90 L D MPV 8.8 Neutrophils % 62.9 Lymphocytes % 22.4 D Monocytes % 12.9 H Eosinophils % 1.2 D Basophils % 0.6 PT with INR 16.10 H INR 1.42 H Sodium 140 Potassium 3.5 Chloride 102 Carbon Dioxide 26 Anion Gap 12 BUN 5 L Creatinine 0.4 L Creat Clearance w eGFR > 60 Random Glucose 94 Calcium 7.8 L Phosphorus 2.0 L Magnesium 2.0 Total Bilirubin 3.0 H Direct Bilirubin 2.3 H AST 128 H ALT 38 Alkaline Phosphatase 428 H Total Protein 7.1 Albumin 3.0 L Microbiology 10/21/17 19:45 Blood - Peripheral Venous Blood Culture - Preliminary NO GROWTH OBTAINED AFTER 48 HOURS, INCUBATION TO CONTINUE FOR 3 DAYS. 10/21/17 19:45 Blood - Peripheral Venous Blood Culture - Preliminary NO GROWTH OBTAINED AFTER 48 HOURS, INCUBATION TO CONTINUE FOR 3 DAYS. 10/21/17 19:35 Urine - Urine Clean Catch Urine Culture - Final NO GROWTH OBTAINED MRCP results noted - hepatomegaly/cirrhosis ASSESSMENT AND PLAN: 62 yof with ETOH abuse (last reported drink 1 week ago), gout admitted with weakness, UTI. -Sepsis, likely secondary to UTI -Mild alcohol hepatitis -Abnormal LFTs with cholestasis/gall bladder sludge -Hyperammonemia, no clinical evidence of hepatic encephalopathy -Alcohol abuse -Hypokalemia -Severe hypomagnesemia -Thrombocytopenia, suspect for acute alcohol related bone marrow suppression and splenomegaly Plan: Fevers improved. ID input appreciated. vantin for 5 days. Urinary symptoms resolved. GI input appreciated. MRCP results noted, discussed with patient, updated on findings of hepatomegaly/ cirrhosis and need for alcohol cessation and outpatient GI follow up. Patient relays understanding and agrees to comply. LFTs improving. Follow up viral/autoimmune hepatitis panel. Alcohol withdrawal protocol as indicated. Replete K/Mg/Phos prn. Platelets improved. Plan for EGD tomorrow. Dispo Plan for d/c home after EGD tomorrow if no new events. Plan discussed with patient and all questions answered.
[2017-10-24] MEDS: CEFPODOXIME PROXETIL 100 MG TABLET PO SCH ×2 (15:50→21:31)
--- NOTE | 2017-10-24 17:52 | CONS ---
DATE OF CONSULTATION: DATE OF DICTATION: 10/24/2017 This is a 62-year-old female with a history of alcoholic liver disease and recurrent UTIs, who I am asked to see after she was admitted for generalized weakness associated with low-grade fever and a white count of 14,000. Her urinalysis was loaded with white cells and she was empirically treated with ceftriaxone. She has also been seen by the GI service for evaluation of chronic liver disease with cirrhosis and possible alcohol withdrawal. The patient denies any urinary symptoms. Past medical history includes recurrent UTIs, chronic alcoholism and gout. Medications at home: None known. Social history: Never smoked. Daily drinker. ALLERGIES: None known. FAMILY HISTORY AND REVIEW OF SYSTEMS: All systems reviewed and noncontributory. PHYSICAL EXAMINATION: General: She was an alert female in no acute distress. Vital Signs: Temperature max 100.2, temperature max on admission 101.8, currently afebrile, 99.3. Pulse 57, blood pressure 143/82. Respirations 18. Neck: Supple. Lungs: Clear. Heart: S1, S2. Regular rhythm. No murmur. Abdomen: Soft, nontender. Positive bowel sounds. No guarding, no rebound. Extremities: No clubbing, cyanosis or edema. The white count is 6.9, hemoglobin 11, platelets of 90,000, BUN 5, creatinine 0.4, bilirubin 3.3, AST 128, alkaline phosphatase 428, albumin 3.0. Urinalysis: 80 WBCs, 9 RBCs. Two sets of blood cultures: No growth. Urine culture: No growth. Chest x-ray shows no acute pathology. MRI shows hepatomegaly with severe fatty infiltration of the liver, consistent with cirrhosis, cholelithiasis, and sludge. ASSESSMENT: A 62-year-old female with chronic liver disease and chronic alcoholism, presents with weakness, low-grade fever, and leukocytosis, most likely secondary to recurrent urinary tract infections, clinically improved. Fever down, white count now normal. As discussed with Dr. Bailey, could switch her to p.o. antibiotics with Vantin 100 mg p.o. b.i.d. for 5 to 7 days. REHANA WHATLEY M.D. GRACE/[id number]
[2017-10-25] MEDS: SODIUM CHLORIDE 1,000 ML IV SCH ×2 (04:31→08:05)
[2017-10-25 08:04] LABS: BASO % 0.8 % (0-2.0); EOS % 2.3 % (0-4.5); HEMOGLOBIN 10.3 GM/dL (10.7-15.3); LYMPH % 23.7 % (8-40); MCH 36.3 pg (25.7-33.7); MCHC 34.3 g/dl (32.0-36.0); MEAN PLT VOLUME 8.4 fl (7.5-11.1); MONO % 17.4 % (3.8-10.2); NEUT % 55.8 % (42.8-82.8); PLATELET COUNT 95 K/MM3 (134-434); RBC 2.83 M/mm3 (3.60-5.2); RDW 17.9 % (11.6-15.6); WHITE BLOOD COUNT 5.6 K/mm3 (4.0-10.0)
[2017-10-25 08:22] LABS: INR 1.52 (0.82-1.09); PROTHROMBIN TIME (PATIENT) 17.2 SEC (9.98-11.88)
[2017-10-25 08:33] LABS: ALBUMIN 2.7 g/dl (3.4-5.0); ALK PHOS 456 U/L (45-117); ANION GAP 12 (8-16); BILIRUBIN,DIRECT 2.2 mg/dL (0.0-0.2); BLOOD UREA NITROGEN 4 mg/dL (7-18); CHLORIDE 104 mmol/L (98-107); CO2 25 mmol/L (21-32); CREATININE 0.3 mg/dL (0.55-1.02); GLUCOSE,RANDOM 91 mg/dL (74-106); MAGNESIUM 1.9 mg/dL (1.8-2.4); PHOSPHOROUS 1.6 mg/dL (2.5-4.9); POTASSIUM 3.3 mmol/L (3.5-5.1); SGOT/AST 111 U/L (15-37); SGPT/ALT 37 U/L (12-78); SODIUM 141 mmol/L (136-145); TOT PROT 6.4 g/dl (6.4-8.2)
--- NOTE | 2017-10-25 08:47 | PN ---
Teaching Attending Note Name of Resident: Fatoumata Scanlon ATTENDING PHYSICIAN STATEMENT I saw and evaluated the patient. I reviewed the resident's note and discussed the case with the resident. I agree with the resident's findings and plan as documented with exceptions below. SUBJECTIVE: Patient seen and examined. no complaints, PO intake improved. Overall feels better. OBJECTIVE: Vital Signs Period Temp Pulse Resp BP Sys/Lau Pulse Ox Last 24 Hr 98.2 F-99.8 F 82-100 18-20 127-132/66-74 Intake & Output 10/22/17 10/23/17 10/24/17 10/25/17 23:59 23:59 23:59 23:59 Intake Total 850 3170 2353 1200 Balance 850 3170 2353 1200 Weight 137 lb 138 lb 1 oz 135 lb 136 lb 11.2 oz General: sitting Abdomen; chest: Extremities; Home Medication List Medication Instructions Recorded Confirmed Type NK [No Known Home Medication] 10/22/17 10/22/17 History Active Medications Generic Name Dose Route Start Last Admin Trade Name Freq PRN Reason Stop Dose Admin Acetaminophen 650 mg 10/22/17 16:18 10/23/17 21:52 Tylenol - PO 650 mg Q4H PRN Administration FEVER Cefpodoxime Proxetil 100 mg 10/24/17 10:15 10/24/17 21:31 Vantin (Nf) - PO 100 mg BID LISET Administration Chlordiazepoxide HCl 15 mg 10/24/17 07:16 10/24/17 21:32 Librium - PO 15 mg Q6H PRN Administration ALCOHOL WITHDRAWAL Sodium Chloride 1,000 mls @ 100 mls/hr 10/24/17 07:16 10/25/17 08:05 Normal Saline - IV Not Given ASDIR LISET Laboratory Results - last 24 hr 10/24/17 10/24/17 10/25/17 07:45 07:45 06:30 WBC 5.6 RBC 2.83 L Hgb 10.3 L Hct 30.0 L MCV 106.0 H MCH 36.3 H MCHC 34.3 RDW 17.9 H Plt Count 95 L MPV 8.4 Neutrophils % 55.8 Lymphocytes % 23.7 Monocytes % 17.4 H Eosinophils % 2.3 D Basophils % 0.8 PT with INR 16.10 H INR 1.42 H Sodium 140 Potassium 3.5 Chloride 102 Carbon Dioxide 26 Anion Gap 12 BUN 5 L Creatinine 0.4 L Creat Clearance w eGFR > 60 Random Glucose 94 Calcium 7.8 L Phosphorus 2.0 L Magnesium 2.0 Total Bilirubin 3.0 H Direct Bilirubin 2.3 H AST 128 H ALT 38 Alkaline Phosphatase 428 H Total Protein 7.1 Albumin 3.0 L 10/25/17 10/25/17 10/25/17 06:30 06:30 06:30 WBC RBC Hgb Hct MCV MCH MCHC RDW Plt Count MPV Neutrophils % Lymphocytes % Monocytes % Eosinophils % Basophils % PT with INR 17.20 H INR 1.52 H Sodium 141 Potassium 3.3 L Chloride 104 Carbon Dioxide 25 Anion Gap 12 BUN 4 L Creatinine 0.3 L Creat Clearance w eGFR > 60 Random Glucose 91 Calcium 8.0 L Phosphorus 1.6 L Magnesium 1.9 Total Bilirubin 3.0 H Cancelled Direct Bilirubin 2.2 H Cancelled AST 111 H Cancelled ALT 37 Cancelled Alkaline Phosphatase 456 H Cancelled Total Protein 6.4 Cancelled Albumin 2.7 L Cancelled Microbiology 10/21/17 19:45 Blood - Peripheral Venous Blood Culture - Preliminary NO GROWTH OBTAINED AFTER 72 HOURS, INCUBATION TO CONTINUE FOR 2 DAYS. 10/21/17 19:45 Blood - Peripheral Venous Blood Culture - Preliminary NO GROWTH OBTAINED AFTER 72 HOURS, INCUBATION TO CONTINUE FOR 2 DAYS. 10/21/17 19:35 Urine - Urine Clean Catch Urine Culture - Final NO GROWTH OBTAINED ASSESSMENT AND PLAN: 62 yof with ETOH abuse (last reported drink 1 week ago), gout admitted with weakness, UTI. 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 LFts stable. Alcohol cessation counseling provided. Outaptient hepatology follow up. EGD with varices, outpatient follow up for biopsies and hepatitis panel results. LFTs in 1-2 weeks. Vantin for a total 5 day. Kphos suppl x 3 days D/c home today with outpatient follow up. Plan discussed with patient in detail, all questions answered.
--- NOTE | 2017-10-25 10:34 | PN ---
Physical Exam: SUBJECTIVE: Patient seen and examined OBJECTIVE: Vital Signs Period Temp Pulse Resp BP Sys/Lau Pulse Ox Last 24 Hr 98.2 F-99.8 F 82-100 18-20 130-132/66-71 GENERAL: The patient is awake, alert, and fully oriented, in no acute distress. HEAD: Normal with no signs of trauma. EYES: PERRL, extraocular movements intact, sclera anicteric, conjunctiva clear. No ptosis. ENT: Ears normal, nares patent, oropharynx clear without exudates, moist mucous membranes. NECK: Trachea midline, full range of motion, supple. LUNGS: Breath sounds equal, clear to auscultation bilaterally, no wheezes, no crackles, no accessory muscle use. HEART: Regular rate and rhythm, S1, S2 without murmur, rub or gallop. ABDOMEN: Soft, nontender, nondistended, normoactive bowel sounds, no guarding, no rebound, no hepatosplenomegaly, no masses. EXTREMITIES: 2+ pulses, warm, well-perfused, no edema. NEUROLOGICAL: Cranial nerves II through XII grossly intact. Normal speech, gait not observed. PSYCH: Normal mood, normal affect. SKIN: Warm, dry, normal turgor, no rashes or lesions noted Laboratory Results - last 24 hr 10/25/17 10/25/17 10/25/17 06:30 06:30 06:30 WBC 5.6 RBC 2.83 L Hgb 10.3 L Hct 30.0 L MCV 106.0 H MCH 36.3 H MCHC 34.3 RDW 17.9 H Plt Count 95 L MPV 8.4 Neutrophils % 55.8 Lymphocytes % 23.7 Monocytes % 17.4 H Eosinophils % 2.3 D Basophils % 0.8 PT with INR 17.20 H INR 1.52 H Sodium 141 Potassium 3.3 L Chloride 104 Carbon Dioxide 25 Anion Gap 12 BUN 4 L Creatinine 0.3 L Creat Clearance w eGFR > 60 Random Glucose 91 Calcium 8.0 L Phosphorus 1.6 L Magnesium 1.9 Total Bilirubin 3.0 H Direct Bilirubin 2.2 H AST 111 H ALT 37 Alkaline Phosphatase 456 H Total Protein 6.4 Albumin 2.7 L 10/25/17 06:30 WBC RBC Hgb Hct MCV MCH MCHC RDW Plt Count MPV Neutrophils % Lymphocytes % Monocytes % Eosinophils % Basophils % PT with INR INR Sodium Potassium Chloride Carbon Dioxide Anion Gap BUN Creatinine Creat Clearance w eGFR Random Glucose Calcium Phosphorus Magnesium Total Bilirubin Cancelled Direct Bilirubin Cancelled AST Cancelled ALT Cancelled Alkaline Phosphatase Cancelled Total Protein Cancelled Albumin Cancelled Active Medications Generic Name Dose Route Start Last Admin Trade Name Freq PRN Reason Stop Dose Admin Acetaminophen 650 mg 10/22/17 16:18 10/23/17 21:52 Tylenol - PO 650 mg Q4H PRN Administration FEVER Cefpodoxime Proxetil 100 mg 10/24/17 10:15 10/24/17 21:31 Vantin (Nf) - PO 100 mg BID LISET Administration Chlordiazepoxide HCl 15 mg 10/24/17 07:16 10/24/17 21:32 Librium - PO 15 mg Q6H PRN Administration ALCOHOL WITHDRAWAL Sodium Chloride 1,000 mls @ 100 mls/hr 10/24/17 07:16 10/25/17 08:05 Normal Saline - IV Not Given ASDIR LISET ASSESSMENT/PLAN:
[2017-10-25] MEDS ORDERED: POTASSIUM PHOSPHATE 40 MM in SODIUM CHLORIDE 500 ML IVPB ONE (10:35)
[2017-10-25] MEDS ORDERED: PROPOFOL 20 ML ONE ×3 (11:29)
--- NOTE | 2017-10-25 11:55 | PROC ---
Endoscopy Procedure Endoscopy procedure completed. Please see scanned procedure report. Grade II, single column esophageal varix w/o stigmata of recent, or impending bleeding. Portal hypertensive gastropathy noted, biopsies taken PPI Nadolol 20 mg qd Protonix 40 mg po qam Low salt diet Stop alcohol/Rehab Pathology follow up in 1 week Hepatology follow q3 months
[2017-10-25] MEDS ORDERED: PANTOPRAZOLE 40 MG TABLET (FP) PO SCH (12:00)
[2017-10-25] MEDS: CEFPODOXIME PROXETIL 100 MG TABLET PO SCH (13:03)
[2017-10-25 14:37] VITALS: BP 111/63; PULSE 79; TEMP 98.8
[2017-10-25] MEDS ORDERED: NAPH,MB-DB/K PH,MBDB POWDER PACKET PO SCH (22:00)
[2017-10-26] MEDS ORDERED: NADOLOL 20 MG TABLET (FP) PO SCH (10:00)
--- NOTE | 2017-10-26 22:41 | DS ---
Physical Exam: SUBJECTIVE: Patient seen and examined OBJECTIVE: PHYSICAL EXAM GENERAL: The patient is awake, alert, and fully oriented, in no acute distress. HEAD: Normal with no signs of trauma. EYES: PERRL, extraocular movements intact, sclera anicteric, conjunctiva clear. ENT: Ears normal, nares patent, oropharynx clear without exudates, moist mucous membranes. NECK: Trachea midline, full range of motion, supple. LUNGS: Breath sounds equal, clear to auscultation bilaterally, no wheezes, no crackles, no accessory muscle use. HEART: Regular rate and rhythm, S1, S2 without murmur, rub or gallop. ABDOMEN: Soft, nontender, nondistended, normoactive bowel sounds, no guarding, no rebound, no hepatosplenomegaly, no masses. EXTREMITIES: 2+ pulses, warm, well-perfused, no edema. NEUROLOGICAL: Cranial nerves II through XII grossly intact. Normal speech, gait not observed. PSYCH: Normal mood, normal affect. SKIN: Warm, dry, normal turgor, no rashes or lesions noted. LABS HOSPITAL COURSE: Date of Admission:10/22/17 Date of Discharge: 10/26/17 Discharge Summary Reason For Visit: SEPSIS HYPOKALEMI Condition: Stable - Instructions Diet, Activity, Other Instructions: You were admitted to the hospital for a urinary tract infections and was treated with antibiotics. You were also found to have have electrolyte imbalances, which were repleted. Imaging of your abdomen showed that you have liver cirrhosis. An EGD was performed on 10/25/2017 that showed that you had an esophageal varix (that is a dilated vein) and gastropathy. Recommendations: -You may resume your regular daily activities. Keep a low sodium diet. You should eat a balanced diet, including fruit and vegetables. -You need to stop drinking alcohol. -The new medication nadolol can cause dizziness. So if you have any symptoms of dizziness, or weakness, please talk to your doctor or come to ED. -Do not drive or operate heavy machinery till next doctor visit. Medications: You may resume your regular home medications with the following changes: -Start taking Nadolol 20mg daily -Start taking Protonix 40mg daily in the morning -Take Vantin (an antibiotic) 100mg two times per day (12hours apart) for the next 3 days. Your first dose will be tonight. Your last dose will be Thursday evening. -Take Phos-NaK packet (electrolyte replacement) two times per day for the next 3 days. Take your first dose tonight. Your last dose will be evening. Follow-ups: -Make an appointment to see Dr. Berkowitz (hydraulic press operator) in 1 week for follow- up of your biopsy results and liver studies, including hepatitis viral panel and autoimmune testing. -You need to make an appointment with a Control Panel Assembler (liver doctor) in 3 months. -Make an appointment with Dr. Skinner, your primary care physician in 1-2 weeks for post-hospitalization evaluation and to have blood chemistries and liver tests checked. -Also discuss with your doctor for outpatient liver specialist follow up. Please return to the Emergency room if you have fever, chills, pain with urination, or any new, worsening, or concerning symptoms. Referrals: Mauricio Berkowitz MD [Staff Physician] - 1 Week Patricia Skinner MD [Primary Care Provider] - Disposition: HOME - Home Medications Comprehensive Discharge Medication List: Ambulatory Orders Cefpodoxime Proxetil [Vantin -] 100 mg PO BID #7 tablet 10/25/17 Nadolol [Corgard -] 20 mg PO DAILY #30 tablet 10/25/17 Naph,Mb-Db/K pH,Mbdb [PHOS-NaK PACKET -] 1 packet PO BID #7 pow 10/25/17 Pantoprazole Sodium [Protonix -] 40 mg PO DAILY #30 tablet.ec 10/25/17 This patient is new to me today: No Date on this admission: 10/25/17
--- NOTE | 2017-10-27 11:08 | PATH ---
Surgical Pathology Report Patient Name: CHRIS BINGHAM [facility]. Rec. #: [id number] /Age/Gender: 1955 (Age: 62) / F Account: [id number] Location: [address] [place] [address] Taken: 10/25/2017 Received: 10/26/2017 Reported: 10/27/2017 Physicians: Alonzo Bailey M.D. Specimen(s) Received A: BX DUODENUM B: BX BODY AND ANTRUM Clinical History Preoperative diagnosis: Alcoholism, possible cirrhosis Postop diagnosis: Portal gastropathy Final Diagnosis A. DUODENUM, SECOND PORTION, BIOPSY: DUODENAL MUCOSA WITHOUT SIGNIFICANT PATHOLOGIC FINDINGS. B. STOMACH, ANTRUM AND BODY, BIOPSY: GASTRIC ANTRAL AND BODY MUCOSA WITH MILD CHRONIC GASTRITIS. IMMUNOHISTOCHEMICAL STAIN FOR H. PYLORI IS NEGATIVE. Electronically Signed Stephanie Roy M.D. Gross Description A. Received in formalin, labeled "biopsy duodenum second portion" are 2 michaud, irregular portions of soft tissue measuring 0.2 and 0.3 cm. in greatest dimension. The specimens are submitted in toto in one cassette. B. Received in formalin, labeled "biopsy antrum and body" is a michaud, irregular portion of soft tissue measuring 0.3 cm. in greatest dimension. The specimen is submitted in toto in one cassette. 10/26/2017 [facility]26/2017
== END 2017-10-25 17:29 | disposition home or self-care (01) | DRG 871 ==
LOC: JER 18:20 → JERBED 10-22 05:00 → UNDOADMIN 10-22 05:46 → JERBED 10-22 05:46 → J6S 10-22 10:03
PROVIDERS: ADMIT Internal Medicine; ATTEND Hospitalist
PROC: 0DB68ZX Excision of Stomach, Via Natural or Artificial Opening Endoscopic, Diagnostic (ICD-10-PCS; 2017-10-25)
PROC: 0DB98ZX Excision of Duodenum, Via Natural or Artificial Opening Endoscopic, Diagnostic (ICD-10-PCS; principal; 2017-10-25 12:45)
DX: A41.9 Sepsis, unspecified organism (principal); K83.1 Obstruction of bile duct; N39.0 Urinary tract infection, site not specified; E87.1 Hypo-osmolality and hyponatremia; I85.00 Esophageal varices without bleeding; K76.6 Portal hypertension; R73.03 Prediabetes; E87.6 Hypokalemia; E78.5 Hyperlipidemia, unspecified; K70.10 Alcoholic hepatitis without ascites; M10.9 Gout, unspecified; E83.42 Hypomagnesemia; E86.0 Dehydration; K76.0 Fatty (change of) liver, not elsewhere classified; F10.20 Alcohol dependence, uncomplicated; D69.6 Thrombocytopenia, unspecified; K31.89 Other diseases of stomach and duodenum; K70.30 Alcoholic cirrhosis of liver without ascites
CPT/HCPCS: 36415; 71045-TC-FY; 74183-TC; 76705-TC; 80048; 80053; 80076; 81003; 81015; 82105; 82140; 82248; 82607; 82728; 82746; 83516; 83540; 83550; 83605; 83690; 83735; 84100; 84132; 84425; 85025; 85027; 85610; 86038; 86704; 86706; 86708; 87040; 87086; 87340; 88305-TC; 93005; 93010; 97116-GP; 97161-GP; 99283-25; J1644; J7030

== ENCOUNTER 2018-07-19 09:12 | Inpatient (IN) | payer BC ==
[2018-07-19 09:19] VITALS: BMI 22.9
[2018-07-19] MEDS ORDERED: SODIUM CHLORIDE 1,000 ML IV STA ×3 (09:59→15:12)
--- NOTE | 2018-07-19 10:21 | PDOC ---
History of Present Illness - General Chief Complaint: Nasal Bleeding Stated Complaint: Nasal Bleeding Time Seen by Provider: 07/19/18 09:44 History Source: Patient Exam Limitations: No Limitations - History of Present Illness Initial Comments: 07/19/18 10:16 Pt is a 62yo F with PMH of cirrhosis due to alcohol, HLD presenting to ED with complaints of nose bleed x2 days and weakness. Pt said she has been having on and off nosebleeds which soak up "a lot" of tissues. She is not taking blood thinners. She also endorses generalized weakness for the past few days. Pt also says she has been having lower abdominal pain associated with constipation. She denies trauma, fevers, chills, lightheadedness, n/v/d, blood in stools, dark stools, syncope, chest pain, sob, cough, urinary symptoms. She last drank 7 shots of vodka last night. She denies having seizures from withdrawals. PMD: F GI: DiGiorno Meds: nadolol, statin PMH: see hpi PSH: hysterectomy Allergies: nkda Social: drinks 7 shots of vodka daily. Denies tobacco, illicit drug use Past History - Past Medical History Allergies/Adverse Reactions: Allergies Allergy/AdvReac Type Severity Reaction Status Date / Time No Known Allergies Allergy Verified 10/21/17 18:43 Home Medications: Ambulatory Orders Nadolol [Corgard -] 20 mg PO DAILY #30 tablet 10/25/17 Anemia: No Asthma: No Cancer: No Cardiac Disorders: No CVA: No COPD: No Dementia: No Diabetes: Yes (borderline) GI Disorders: No Disorders: No HTN: No Hypercholesterolemia: Yes Liver Disease: No Seizures: No Thyroid Disease: No - Surgical History Abdominal Surgery: No Appendectomy: No Cardiac Surgery: No Cholecystectomy: No Lung Surgery: No Neurologic Surgery: No Orthopedic Surgery: No - Immunization History Immunization Up to Date: No - Suicide/Smoking/Psychosocial Hx Smoking History: Never smoked Have you smoked in the past 12 months: No Information on smoking cessation initiated: No Hx Alcohol Use: No Drug/Substance Use Hx: No Substance Use Type: Alcohol Hx Substance Use Treatment: No Review of Systems - Review of Systems Constitutional: Yes: Weakness. No: Chills, Fever HEENTM: Yes: Nose Bleeding. No: Eye Pain, Recent change in vision, Double Vision, Nose Pain, Mouth Pain Respiratory: No: Cough, Shortness of Breath, Hemoptysis Cardiac (ROS): No: Chest Pain, Lightheadedness, Palpitations, Syncope ABD/GI: Yes: Constipated, Abdominal cramping. No: Diarrhea, Nausea, Rectal Bleeding, Vomiting, Tarry Stools : No: Burning, Dysuria, Flank Pain, Hematuria Musculoskeletal: No: Symptoms Reported Integumentary: Yes: Bruising Neurological: No: Symptoms reported *Physical Exam - Vital Signs Last Vital Signs Temp Pulse Resp BP Pulse Ox 97.9 F 129 H 16 120/79 97 07/19/18 09:15 07/19/18 09:15 07/19/18 09:15 07/19/18 09:15 07/19/18 09:15 - Physical Exam General Appearance: Yes: Nourished, Appropriately Dressed. No: Apparent Distress HEENT: positive: EOMI, LADY, TMs Normal, Other (dry mucosal membranes. Clotted blood in nostrils bilaterally, mostly in L. erythematous nasal turbinates). negative: Rhinorrhea Neck: positive: Trachea midline, Supple. negative: Lymphadenopathy (R), Lymphadenopathy (L) Respiratory/Chest: positive: Lungs Clear, Normal Breath Sounds. negative: Crackles, Rales, Rhonchi, Stridor Cardiovascular: positive: Regular Rhythm, S1, S2, Tachycardia, Systolic Murmur. negative: Edema, JVD Vascular Pulses: Carotid (R): 2+, Carotid (L): 2+, Dorsalis-Pedis (R): 2+, Doralis-Pedis (L): 2+ Gastrointestinal/Abdominal: positive: Normal Bowel Sounds, Soft. negative: Distended, Guarding, Rebound, Tenderness Musculoskeletal: negative: CVA Tenderness Extremity: positive: Normal Capillary Refill, Normal Inspection Integumentary: positive: Ecchymosis (over L arm and dorasal aspect of R thumb) Neurologic: positive: strike plate attacher II-XII NML intact, Fully Oriented, Alert, Normal Mood/ Affect, Normal Response, Motor Strength 5/5 Moderate Sedation - Procedure Monitoring Vital Signs: Procedure Monitoring Vital Signs Temperature 97.9 F 07/19/18 09:15 Pulse Rate 129 H 07/19/18 09:15 Respiratory Rate 16 07/19/18 09:15 Blood Pressure 120/79 07/19/18 09:15 O2 Sat by Pulse Oximetry (%) 97 07/19/18 09:15 ED Treatment Course - LABORATORY CBC & Chemistry Diagram: 07/19/18 10:03 07/19/18 10:03 Medical Decision Making - Medical Decision Making 07/19/18 10:21 Pt is a 62yo F with PMH of cirrhosis due to alcohol, HLD presenting to ED with complaints of nose bleed x2 days and weakness. Pt said she has been having on and off nosebleeds which soak up "a lot" of tissues. She is not taking blood thinners. She also endorses generalized weakness for the past few days. Pt also says she has been having lower abdominal pain associated with constipation. She denies trauma, fevers, chills, lightheadedness, n/v/d, blood in stools, dark stools, syncope, chest pain, sob, cough, urinary symptoms. She last drank 7 shots of vodka last night. She denies having seizures from withdrawals. Vitals: tachycardia PE: clotted blood in nostrils, erythematous nasal turbinates. No blood in posterior oropharynx, systolic murmur. dry mucousal membranes. DDx: PE, ACS, infectious process, vascular disorder, alcohol withdrawal CBC, CMP, coags, trop, ekg, cxr, ua. Will give IVF and librium. CBC shows Low platelet levels (66), near baseline. 07/19/18 13:58 Laboratory Tests 07/19/18 07/19/18 07/19/18 10:03 10:03 10:03 WBC 8.3 Hgb 13.5 Hct 38.3 D Plt Count 66 L D PT with INR 13.90 H INR 1.18 H PTT (Actin FS) 28.2 Sodium 134 L Potassium 3.4 L Calcium 10.5 H Total Bilirubin 3.9 H AST 145 H Alkaline Phosphatase 354 H Troponin I 0.06 H 07/19/18 13:59 Labs near baseline. Ca elevated compared to before and T.bili elevated as well. Will add on D.Bili. Trop at 0.06. Elevated neutrophils. Waiting for UA. Given another L of fluids (will raise Na as well). 07/19/18 15:12 Laboratory Tests 07/19/18 07/19/18 10:03 10:03 Direct Bilirubin 2.4 H Urine Nitrite Positive Urine Urobilinogen 4.0 e.u/dl H Urine WBC (Auto) 2 Ur Epithelial Cells Rare Urine Bacteria Many Cultures sent. Will start on Ceftriaxone. HR still elevated in 110s. PT received 2L IVF. Will admit for tachycardia, elevated trop, UTI. CTA negative for PE. *DC/Admit/Observation/Transfer Diagnosis at time of Disposition: Tachycardia UTI (urinary tract infection) Qualifiers: Urinary tract infection type: site unspecified Hematuria presence: without hematuria Qualified Code(s): N39.0 - Urinary tract infection, site not specified - Discharge Dispostion Condition at time of disposition: Stable Decision to Admit order: Yes - Referrals Referrals: Patricia Skinner MD [Primary Care Provider] - - Patient Instructions - Post Discharge Activity
[2018-07-19 10:41] LABS: BASO % 0.3 % (0-2.0); EOS % 0.1 % (0-4.5); HEMATOCRIT 38.3 % (32.4-45.2); HEMOGLOBIN 13.5 GM/dL (10.7-15.3); LYMPH % 7.8 % (8-40); MCH 34.9 pg (25.7-33.7); MCHC 35.3 g/dl (32.0-36.0); MEAN CELL VOLUME 98.9 fl (80-96); MEAN PLT VOLUME 9.2 fl (7.5-11.1); MONO % 5.9 % (3.8-10.2); NEUT % 85.9 % (42.8-82.8); PLATELET COUNT 66 K/MM3 (134-434); RBC 3.87 M/mm3 (3.60-5.2); RDW 16.6 % (11.6-15.6); WHITE BLOOD COUNT 8.3 K/mm3 (4.0-10.0)
[2018-07-19 10:55] LABS: INR 1.18 (0.83-1.09); PROTHROMBIN TIME (PATIENT) 13.9 SEC (9.7-13.0)
[2018-07-19 10:58] LABS: ACTIVATED PTT 28.2 SECONDS (25.2-36.5)
[2018-07-19] MEDS ORDERED: chlordiazePOXIDE HCL 25 MG CAPSULE PO ONE (11:10)
[2018-07-19 11:18] LABS: ALBUMIN 4.4 g/dl (3.4-5.0); ALK PHOS 354 U/L (45-117); ANION GAP 15 MMOL/L (8-16); BILIRUBIN,TOTAL 3.9 mg/dL (0.2-1); BLOOD UREA NITROGEN 15 mg/dL (7-18); CALCIUM 10.5 mg/dL (8.5-10.1); CHLORIDE 90 mmol/L (98-107); CO2 29 mmol/L (21-32); CREATININE 0.9 mg/dL (0.55-1.3); GLUCOSE,RANDOM 163 mg/dL (74-106); POTASSIUM 3.4 mmol/L (3.5-5.1); SGOT/AST 145 U/L (15-37); SGPT/ALT 51 U/L (13-61); SODIUM 134 mmol/L (136-145); TOT PROT 8.9 g/dl (6.4-8.2)
[2018-07-19] MEDS ORDERED: chlordiazePOXIDE HCL 25 MG CAPSULE ONE ×2 (11:18→18:35)
--- NOTE | 2018-07-19 12:55 | EKG ---
Test Reason : Blood Pressure : / mmHG Vent. Rate : 116 BPM Atrial Rate : 116 BPM P-R Int : 146 ms QRS Dur : 078 ms QT Int : 328 ms P-R-T Axes : 046 025 021 degrees QTc Int : 455 ms POOR DATA QUALITY, INTERPRETATION MAY BE ADVERSELY AFFECTED SINUS TACHYCARDIA POSSIBLE LEFT ATRIAL ENLARGEMENT SEPTAL INFARCT (CITED ON OR BEFORE 27-JAN-2017) ABNORMAL ECG WHEN COMPARED WITH ECG OF 22-OCT-2017 04:52, NO SIGNIFICANT CHANGE WAS FOUND Confirmed by Omega Aquino ([id number]) on 07/19/2018 12:54:50 PM Referred By: Confirmed By:Omega Aquino
--- NOTE | 2018-07-19 12:58 | PDOC ---
Attending Attestation - Resident Resident Name: Leila Leonardo - ED Attending Attestation I have performed the following: I have examined & evaluated the patient, The case was reviewed & discussed with the resident, I agree w/resident's findings & plan - HPI HPI: 07/19/18 12:53 62-year-old female with history of alcoholism, alcoholic cirrhosis, history of UTI and hypokalemia presents with generalized weakness for 2-3 days. No localizing complaints, slightly decreased by mouth intake, reporting intermittent epistaxis for several days as well. No falls, no chest pain, no infectious complaints. Was admitted in October 2017 for generalized weakness and diagnosed with UTI. - Physicial Exam PE: 07/19/18 12:57 Tachycardia, about 110 on exam, but ambulating to the restroom increases to 1: 30. Blood pressure normal. Slight jaundice, no pallor Left naris with septal clot, dried blood, no active bleeding and oropharynx clear Heart is regular tachycardia, lungs are clear Abdomen with slight left pelvic discomfort but no guarding or rebound. No CVA tenderness. No leg swelling or calf tenderness. - Medical Decision Making 07/19/18 12:58 62-year-old female with history of alcoholism and cirrhosis presents with intermittent epistaxis for several days and generalized weakness. Epistaxis likely secondary to known baseline thrombocytopenia, no other stigmata of bleeding. Generalized weakness could be due to infectious process such as UTI, rule out anemia, rule out worsening cirrhosis. Tachycardia here, question dehydration versus infection versus early withdrawal, lower suspicion for PE. labs, ua ekg, cxr ivf, etoh withdrawal ppx reassess Heart Score/ECG Review #1 ECG reviewed & interpreted by me at: 10:46 General ECG Interpretation: Sinus Rhythm, Normal Rate (116), Normal Intervals ( qtc 455, [id number] unchanged from prior), No acute ischemic changes Compared to previous ECG there are: No significant change (10/24 and 01/23)
[2018-07-19 14:02] LABS: URINE APPEARANCE CLEAR; URINE BILIRUBIN NEGATIVE (<2.0 mg/dL); URINE COLOR AMBER; URINE GLUCOSE (UA) NEGATIVE (NEGATIVE); URINE KETONE 1+ (NEGATIVE); URINE LEUK ESTERASE NEGATIVE (NEGATIVE); URINE NITRITE POSITIVE (NEGATIVE); URINE PROTEIN 1+ (NEGATIVE); URINE UROBILINOGEN 4.0 E.U/dl mg/dL (0.2-1.0)
[2018-07-19 14:12] LABS: EPI CELLS RARE /HPF (FEW); URINE BACTERIA MANY /hpf (NONE SEEN); URINE MUCUS RARE
[2018-07-19] MEDS ORDERED: CEFTRIAXONE 1,000 MG in DEXTROSE 5%-WATER - 50 ML IVPB ONE (15:44)
[2018-07-19 16:00] LABS: BILIRUBIN,DIRECT 2.4 mg/dL (0.0-0.2)
[2018-07-19] MEDS ORDERED: CEFTRIAXONE 1 GM/50 ML BAG ONE (16:12)
[2018-07-19] MEDS ORDERED: SODIUM CHLORIDE 1,000 ML IV SCH (17:15)
[2018-07-19] MEDS ORDERED: chlordiazePOXIDE HCL 25 MG CAPSULE PO PRN (17:18)
[2018-07-19] MEDS ORDERED: FOLIC ACID INJECTION - 1 MG, THIAMINE HCL 100 MG, MULTIVIT INJECTION ADULT 10 ML in SOD... IVPB ONE (17:19)
[2018-07-19] MEDS ORDERED: FOLIC ACID 1 MG TABLET (FP) PO ONE (17:19)
--- NOTE | 2018-07-19 17:42 | HP ---
CHIEF COMPLAINT: epistaxis PCP: Dr. 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 The epistaxis has been happening for four days and reports its about a small cup of liquid. She reports she has gotten this a few times in the past but not every winter. She reports she has abdominal pain for the last four days and thinks it is due to constipation. She reports she has been having a bowel movement every day but reports its a very small amount. She reports it is hard to push the stool out. She has not had constipation in the past. Patient reports for the last few days she has also been feeling weak and feels like its getting worse. She denies any chest pain, shortness of breath, nausea, vomititng, hematuria, or dysuria. Patient had an EGD done in October which showed portal hypertensive gastropathy, no varices. Patient follows up with GI, Dr. Berkowitz but his practice has recently moved. Patient reports her last drink was yesterday. She reports she has gone through withdrawls in the past, but has not ever had a seizures as a result. She drinks 7-8 shots of liquor a day. ER course was notable for: (1) 2 L NS (2) (3) Recent Travel: PAST MEDICAL HISTORY: cirrhosis and HLD PAST SURGICAL HISTORY: hysterectomy, fibroids Social History: Smoking: never Alcohol:7-8 shots of vodka a day Drugs: denies Family History: Allergies No Known Allergies Allergy (Verified 10/21/17 18:43) HOME MEDICATIONS: Home Medications Medication Instructions Recorded Nadolol [Corgard -] 20 mg PO DAILY #30 tablet 10/25/17 REVIEW OF SYSTEMS CONSTITUTIONAL: Absent: fever, chills, diaphoresis, generalized weakness, malaise, loss of appetite, weight change HEENT: Absent: rhinorrhea, nasal congestion, throat pain, throat swelling, difficulty swallowing, mouth swelling, ear pain, eye pain, visual changes CARDIOVASCULAR: Absent: chest pain, syncope, palpitations, irregular heart rate, lightheadedness , peripheral edema RESPIRATORY: Absent: cough, shortness of breath, dyspnea with exertion, orthopnea, wheezing, stridor, hemoptysis GASTROINTESTINAL: abdominal pain, Absent: abdominal distension, nausea, vomiting, diarrhea, constipation, melena , hematochezia GENITOURINARY: Absent: dysuria, frequency, urgency, hesitancy, hematuria, flank pain, genital pain MUSCULOSKELETAL: Absent: myalgia, arthralgia, joint swelling, back pain, neck pain SKIN: Absent: rash, itching, pallor HEMATOLOGIC/IMMUNOLOGIC: Absent: easy bleeding, easy bruising, lymphadenopathy, frequent infections ENDOCRINE: Absent: unexplained weight gain, unexplained weight loss, heat intolerance, cold intolerance NEUROLOGIC: Absent: headache, focal weakness or paresthesias, dizziness, unsteady gait, seizure, mental status changes, bladder or bowel incontinence PSYCHIATRIC: Absent: anxiety, depression, suicidal or homicidal ideation, hallucinations. PHYSICAL EXAMINATION Vital Signs Temperature 98.2 F 07/19/18 13:04 Pulse Rate 127 H 07/19/18 13:04 Respiratory Rate 18 07/19/18 13:04 Blood Pressure 128/78 07/19/18 13:04 O2 Sat by Pulse Oximetry (%) 97 07/19/18 16:22 GENERAL: Awake, alert, and fully oriented, in no acute distress. HEAD: Normal with no signs of trauma. EYES: Pupils equal, round and reactive to light, extraocular movements intact EARS, NOSE, THROAT: Moist mucous membranes. LUNGS: Breath sounds equal, clear to auscultation bilaterally. No wheezes, and no crackles. No accessory muscle use. HEART: tachycardic ABDOMEN: Soft, nontender, not distended, mild hepatomegaly, hypoactive bowel sounds RECTAL: exam deffered today as patient in the hallway MUSCULOSKELETAL: Normal range of motion at all joints. No bony deformities or tenderness. No CVA tenderness. LOWER EXTREMITIES: 2+ pulses, warm, well-perfused. No calf tenderness. No peripheral edema. NEUROLOGICAL: Cranial nerves II-XII intact. Normal speech. PSYCHIATRIC: Cooperative. Good eye contact. Appropriate mood and affect. SKIN: Warm, dry, left arm 4 x4 cm eccymosis CBC, BMP 07/19/18 10:03 07/19/18 10:03 Urine Test Results Urine Color Katerina 07/19/18 10:03 Urine Appearance Clear 07/19/18 10:03 Urine pH 6.0 (5.0-8.0) 07/19/18 10:03 Ur Specific [place] 1.014 (1.010-1.035) 07/19/18 10:03 Urine Protein 1+ (NEGATIVE) H D 07/19/18 10:03 Urine Glucose (UA) Negative (NEGATIVE) 07/19/18 10:03 Urine Ketones 1+ (NEGATIVE) H 07/19/18 10:03 Urine Blood 2+ (NEGATIVE) H 07/19/18 10:03 Urine Nitrite Positive (NEGATIVE) 07/19/18 10:03 Urine Bilirubin Negative (<2.0 mg/dL) 07/19/18 10:03 Ur Leukocyte Esterase Negative (NEGATIVE) 07/19/18 10:03 Ur Epithelial Cells Rare /HPF (FEW) 07/19/18 10:03 Urine Bacteria Many /hpf (NONE SEEN) 07/19/18 10:03 Urine Mucus Rare 07/19/18 10:03 ASSESSMENT/PLAN: Patient is a 62 y/o female with a 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 #cirrhosis 2/2 alcohol - f/u GI Dr. 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 - Chest CT: no PE, atherosclerotic artery calcification, heaptic cirrhosis, moderate splenomegaly - AST: 145, ALT: 51, alk phosp : 354 #alcohol withdrawal - banana bag once - folic acid and thiamine daily - seizure precautions - fall precautions - tachycardic at 127 - librium protocol #constipation - lactulose BID - f/u tomorrow #epistaxis with thrombocytopenia - monitor without DVT ppx for bleeding - hx of thrombocytopenia in the - use vaseline as needed - currently not bleeding #UTI - unlikely - received one dose Ceftriaxone 100 mg - f/u UCX - WBC: 2, LE: neg, nitrates positive #hypercalcemia - ca: 10.5 - protein: 8.4 - monitor #FEN - low salt diet - f/u Mg and Phosp - replet K after mg level noted - continue NS @ 100 #DVT ppx - no ppx for now with bleeding and thrombocytopenia Dispo: monitor on medsurg, f/u med rec tomorrow Visit type - Emergency Visit Emergency Visit: No - New Patient This patient is new to me today: No - Critical Care Critical Care patient: No
[2018-07-19] MEDS ORDERED: FOLIC ACID 1 MG TABLET (FP) ONE (18:35)
[2018-07-19] MEDS: chlordiazePOXIDE HCL 25 MG CAPSULE PO SCH ×2 (18:40→23:06)
--- NOTE | 2018-07-19 18:53 | PN ---
Teaching Attending Note Name of Resident: Stephaine Godfrey ATTENDING PHYSICIAN STATEMENT I saw and evaluated the patient. I reviewed the resident's note and discussed the case with the resident. I agree with the resident's findings and plan as documented. SUBJECTIVE: Patient is a 62 y/o female with a history of liver cirrhosis , alcohol dependency , HLD who presents for epistaxis and abdominal pain. No further bleeding ,patient drinks 7 shots of Vodka per day since age 18 yrs. OBJECTIVE: Vital Signs Temperature 98.1 F 07/19/18 17:56 Pulse Rate 114 H 07/19/18 17:56 Respiratory Rate 18 07/19/18 13:04 Blood Pressure 142/77 07/19/18 17:56 O2 Sat by Pulse Oximetry (%) 99 07/19/18 17:56 GENERAL: Awake, alert, and fully oriented, in no acute distress. HEAD: Normal with no signs of trauma. EYES: Pupils equal, round and reactive to light, extraocular movements intact EARS, NOSE, THROAT: Moist mucous membranes. LUNGS: Breath sounds equal, clear to auscultation bilaterally. No wheezes, and no crackles. No accessory muscle use. HEART: tachycardic, S1S2 positive , ABDOMEN: Soft, positive for ascites , mild hepatomegaly, hypoactive bowel sounds MUSCULOSKELETAL: No CVA tenderness. EXTREMITIES: 2+ pulses, warm, well-perfused. No calf tenderness. No edema. NEUROLOGICAL: Cranial nerves II-XII intact. Normal speech. PSYCHIATRIC: Cooperative. Good eye contact. Appropriate mood and affect. SKIN: Warm, dry, left arm 4 x4 cm eccymosis RECTAL: exam deffered today as patient in the hallway CBCD WBC 8.3 K/mm3 (4.0-10.0) 07/19/18 10:03 RBC 3.87 M/mm3 (3.60-5.2) 07/19/18 10:03 Hgb 13.5 GM/dL (10.7-15.3) 07/19/18 10:03 Hct 38.3 % (32.4-45.2) D 07/19/18 10:03 MCV 98.9 fl (80-96) H 07/19/18 10:03 MCHC 35.3 g/dl (32.0-36.0) 07/19/18 10:03 RDW 16.6 % (11.6-15.6) H 07/19/18 10:03 Plt Count 66 K/MM3 (134-434) L D 07/19/18 10:03 MPV 9.2 fl (7.5-11.1) 07/19/18 10:03 CMP Sodium 134 mmol/L (136-145) L 07/19/18 10:03 Potassium 3.4 mmol/L (3.5-5.1) L 07/19/18 10:03 Chloride 90 mmol/L (98-107) L 07/19/18 10:03 Carbon Dioxide 29 mmol/L (21-32) 07/19/18 10:03 Anion Gap 15 MMOL/L (8-16) 07/19/18 10:03 BUN 15 mg/dL (7-18) 07/19/18 10:03 Creatinine 0.9 mg/dL (0.55-1.3) 07/19/18 10:03 Creat Clearance w eGFR > 60 (>60) 07/19/18 10:03 Random Glucose 163 mg/dL (74-106) H 07/19/18 10:03 Calcium 10.5 mg/dL (8.5-10.1) H 07/19/18 10:03 Total Bilirubin 3.9 mg/dL (0.2-1) H 07/19/18 10:03 AST 145 U/L (15-37) H 07/19/18 10:03 ALT 51 U/L (13-61) 07/19/18 10:03 Alkaline Phosphatase 354 U/L (45-117) H 07/19/18 10:03 Total Protein 8.9 g/dl (6.4-8.2) H 07/19/18 10:03 Albumin 4.4 g/dl (3.4-5.0) 07/19/18 10:03 CARDIAC ENZYMES Troponin I 0.06 ng/ml (0.00-0.05) H 07/19/18 10:03 Current Medications Generic Name Dose Route Start Last Admin Trade Name Freq PRN Reason Stop Dose Admin Chlordiazepoxide HCl 50 mg 07/19/18 18:00 07/19/18 18:40 Librium - PO 07/19/18 23:01 50 mg [id number] LISET Administration Chlordiazepoxide HCl 25 mg 07/20/18 05:00 Librium - PO 07/20/18 23:01 [id number] LISET Chlordiazepoxide HCl 15 mg 07/21/18 05:00 Librium - PO 07/21/18 23:01 [id number] LISET Chlordiazepoxide HCl 25 mg 07/19/18 17:18 Librium - PO 07/22/18 17:17 Q4H PRN WITHDRAWAL(CONT SUBST) Chlordiazepoxide HCl 10 mg 07/22/18 05:00 Librium - PO 07/22/18 23:01 [id number] LISET Sodium Chloride 1,000 mls @ 100 mls/hr 07/19/18 17:15 Normal Saline - IV ASDIR LISET Folic Acid 1 mg/ Thiamine HCl 1,000 mls @ 125 mls/hr 07/19/18 17:19 07/19/18 18:29 100 mg/ Multivitamins/Minerals IVPB 07/20/18 01:18 125 mls/hr 10 ml/ Sodium Chloride ONCE ONE Administration Lactulose 20 gm 07/19/18 22:00 Cephulac (Oral Use) PO BID [facility] Nadolol 20 mg 07/20/18 10:00 Corgard - PO DAILY [facility] Pantoprazole Sodium 40 mg 07/19/18 22:00 Protonix - PO BID [facility] Thiamine HCl 100 mg 07/20/18 10:00 Vitamin B1 - PO DAILY [facility] Home Medications Medication Instructions Recorded Nadolol [Corgard -] 20 mg PO DAILY #30 tablet 10/25/17 Urine Test Results Urine Color Katerina 07/19/18 10:03 Urine Appearance Clear 07/19/18 10:03 Urine pH 6.0 (5.0-8.0) 07/19/18 10:03 Ur Specific [place] 1.014 (1.010-1.035) 07/19/18 10:03 Urine Protein 1+ (NEGATIVE) H D 07/19/18 10:03 Urine Glucose (UA) Negative (NEGATIVE) 07/19/18 10:03 Urine Ketones 1+ (NEGATIVE) H 07/19/18 10:03 Urine Blood 2+ (NEGATIVE) H 07/19/18 10:03 Urine Nitrite Positive (NEGATIVE) 07/19/18 10:03 Urine Bilirubin Negative (<2.0 mg/dL) 07/19/18 10:03 Ur Leukocyte Esterase Negative (NEGATIVE) 07/19/18 10:03 Ur Epithelial Cells Rare /HPF (FEW) 07/19/18 10:03 Urine Bacteria Many /hpf (NONE SEEN) 07/19/18 10:03 Urine Mucus Rare 07/19/18 10:[address]: no PE, atherosclerotic artery calcification, heaptic cirrhosis, moderate splenomegaly ASSESSMENT AND PLAN: Patient is a 62 y/o female with a 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 #Liver cirrhosis due to alcohol : Nadolol continue home med. 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
[2018-07-19 19:31] LABS: MAGNESIUM 1.4 mg/dL (1.8-2.4); PHOSPHOROUS 1.5 mg/dL (2.5-4.9)
[2018-07-19] MEDS: LACTULOSE 20 GM/30 ML UDC (FOR ORAL USE ONLY) PO SCH (23:06)
[2018-07-19] MEDS: PANTOPRAZOLE 40 MG TABLET (FP) PO SCH (23:06)
[2018-07-20] MEDS: chlordiazePOXIDE HCL 25 MG CAPSULE PO SCH ×4 (06:17→22:04)
--- NOTE | 2018-07-20 07:09 | CON.GI ---
Consult - History of Present Illness Chief Complaint: GI consult dictated - Past Medical History ...: No - Alcohol/Substance Use Hx Alcohol Use: Yes - Smoking History Smoking history: Unknown if ever smoked Have you smoked in the past 12 months: No Home Medications - Allergies Allergies/Adverse Reactions: Allergies Allergy/AdvReac Type Severity Reaction Status Date / Time No Known Allergies Allergy Verified 10/21/17 18:43 - Home Medications Home Medications: Ambulatory Orders Clonazepam 1 mg PO HS PRN 07/20/18 Furosemide 20 mg PO DAILY 07/20/18 Nadolol [Corgard -] 40 mg PO DAILY 07/20/18 Pantoprazole Sodium 40 mg PO DAILY 07/20/18 Physical Exam-GI Vital Signs: Vital Signs Temperature 97.8 F 07/20/18 06:00 Pulse Rate 107 H 07/20/18 06:00 Respiratory Rate 20 07/20/18 06:00 Blood Pressure 113/58 L 07/20/18 06:00 O2 Sat by Pulse Oximetry (%) 99 07/19/18 22:50 Labs: CBC, BMP 07/19/18 10:03 07/19/18 10:03 INR, PTT INR 1.18 (0.83-1.09) H 07/19/18 10:03
[2018-07-20 07:38] LABS: BASO % 0.2 % (0-2.0); EOS % 0.3 % (0-4.5); HEMATOCRIT 32.3 % (32.4-45.2); HEMOGLOBIN 10.9 GM/dL (10.7-15.3); LYMPH % 19.9 % (8-40); MCH 33.4 pg (25.7-33.7); MCHC 33.7 g/dl (32.0-36.0); MEAN CELL VOLUME 99.2 fl (80-96); MEAN PLT VOLUME 9.6 fl (7.5-11.1); MONO % 8.1 % (3.8-10.2); NEUT % 71.5 % (42.8-82.8); PLATELET COUNT 48 K/MM3 (134-434); RBC 3.26 M/mm3 (3.60-5.2); RDW 16.4 % (11.6-15.6); WHITE BLOOD COUNT 7.6 K/mm3 (4.0-10.0)
[2018-07-20 08:16] LABS: INR 1.31 (0.83-1.09); PROTHROMBIN TIME (PATIENT) 15.5 SEC (9.7-13.0)
[2018-07-20 08:40] LABS: ALBUMIN 3.1 g/dl (3.4-5.0); ALK PHOS 282 U/L (45-117); ANION GAP 15 MMOL/L (8-16); BILIRUBIN,TOTAL 2.2 mg/dL (0.2-1); BLOOD UREA NITROGEN 8 mg/dL (7-18); CHLORIDE 96 mmol/L (98-107); CO2 28 mmol/L (21-32); CREATININE 0.6 mg/dL (0.55-1.3); GLUCOSE,RANDOM 128 mg/dL (74-106); MAGNESIUM 1.4 mg/dL (1.8-2.4); PHOSPHOROUS 1.4 mg/dL (2.5-4.9); SGOT/AST 97 U/L (15-37); SGPT/ALT 36 U/L (13-61); SODIUM 139 mmol/L (136-145); TOT PROT 6.6 g/dl (6.4-8.2)
[2018-07-20] MEDS ORDERED: MAGNESIUM SULF 50% (8.12 MEQ/2 ML-1 GM VIAL) IVPB ONE ×3 (08:50→09:08)
[2018-07-20] MEDS ORDERED: PT OWN MED DRAWER 7, Y5N ONE (09:32)
[2018-07-20] MEDS: PANTOPRAZOLE 40 MG TABLET (FP) PO SCH ×2 (09:34→21:55)
[2018-07-20] MEDS: LACTULOSE 20 GM/30 ML UDC (FOR ORAL USE ONLY) PO SCH ×3 (09:34→21:55)
[2018-07-20] MEDS: THIAMINE HCL 100 MG TABLET (FP) PO SCH (09:34)
[2018-07-20] MEDS ORDERED: NADOLOL 20 MG TABLET (FP) PO SCH (10:00)
[2018-07-20] MEDS ORDERED: POTASSIUM PHOSPHATE 40 MM in SODIUM CHLORIDE 500 ML IVPB ONE (10:26)
[2018-07-20] MEDS: FUROSEMIDE 20 MG TABLET (FP) PO SCH (11:00)
--- NOTE | 2018-07-20 11:01 | PN ---
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 Patient reports she did not have a bowel movement overnight. No acute events overnight. OBJECTIVE: Vital Signs Temperature 97.9 F 07/20/18 09:10 Pulse Rate 102 H 07/20/18 09:10 Respiratory Rate 20 07/20/18 09:10 Blood Pressure 131/68 07/20/18 09:10 O2 Sat by Pulse Oximetry (%) 99 07/20/18 09:00 GENERAL: Awake, alert, and fully oriented, in no acute distress. EYES: Pupils equal, round and reactive to light, extraocular movements intact LUNGS: Breath sounds equal, clear to auscultation bilaterally. No wheezes, and no crackles. No accessory muscle use. HEART: tachycardic, 3/6 systolic murmur at upper sternal borders ABDOMEN: Soft, nontender, not distended, mild hepatomegaly, hypoactive bowel sounds RECTAL: exam deffered today as patient in the hallway MUSCULOSKELETAL: Normal range of motion at all joints. No bony deformities or tenderness. No CVA tenderness. LOWER EXTREMITIES: 2+ pulses, warm, well-perfused. No calf tenderness. No peripheral edema. NEUROLOGICAL: Cranial nerves II-XII intact. Normal speech. PSYCHIATRIC: Cooperative. Good eye contact. Appropriate mood and affect. SKIN: Warm, dry, left arm 4 x4 cm eccymosis CBCD WBC 7.6 K/mm3 (4.0-10.0) 07/20/18 07:00 RBC 3.26 M/mm3 (3.60-5.2) L 07/20/18 07:00 Hgb 10.9 GM/dL (10.7-15.3) 07/20/18 07:00 Hct 32.3 % (32.4-45.2) L D 07/20/18 07:00 MCV 99.2 fl (80-96) H 07/20/18 07:00 MCHC 33.7 g/dl (32.0-36.0) 07/20/18 07:00 RDW 16.4 % (11.6-15.6) H 07/20/18 07:00 Plt Count 48 K/MM3 (134-434) L D 07/20/18 07:00 MPV 9.6 fl (7.5-11.1) 07/20/18 07:00 CMP Sodium 139 mmol/L (136-145) 07/20/18 07:00 Potassium mmol/L (3.5-5.1) 07/20/18 07:00 Chloride 96 mmol/L (98-107) L 07/20/18 07:00 Carbon Dioxide 28 mmol/L (21-32) 07/20/18 07:00 Anion Gap 15 MMOL/L (8-16) 07/20/18 07:00 BUN 8 mg/dL (7-18) 07/20/18 07:00 Creatinine 0.6 mg/dL (0.55-1.3) 07/20/18 07:00 Creat Clearance w eGFR > 60 (>60) 07/20/18 07:00 Calcium 8.0 mg/dL (8.5-10.1) L 07/20/18 07:00 Total Bilirubin 2.2 mg/dL (0.2-1) H 07/20/18 07:00 AST 97 U/L (15-37) H 07/20/18 07:00 ALT 36 U/L (13-61) 07/20/18 07:00 Alkaline Phosphatase 282 U/L (45-117) H 07/20/18 07:00 Total Protein 6.6 g/dl (6.4-8.2) 07/20/18 07:00 Albumin 3.1 g/dl (3.4-5.0) L 07/20/18 07:00 Active Medications Chlordiazepoxide HCl (Librium -) 25 mg PO [id number] LISET Stop: 07/20/18 23:01 Last Admin: 07/20/18 06:17 Dose: 25 mg Chlordiazepoxide HCl (Librium -) 15 mg PO [id number] LISET Stop: 07/21/18 23:01 Chlordiazepoxide HCl (Librium -) 25 mg PO Q4H PRN PRN Reason: WITHDRAWAL(CONT SUBST) Stop: 07/22/18 17:17 Chlordiazepoxide HCl (Librium -) 10 mg PO [id number] LISET Stop: 07/22/18 23:01 Furosemide (Lasix -) 20 mg PO DAILY LISET Potassium Phosphate 40 mm/ (Sodium Chloride) 263.3333 mls @ 62.5 mls/hr IVPB ONCE ONE Stop: 07/20/18 14:38 Lactulose (Cephulac (Oral Use)) 20 gm PO BID [facility] Last Admin: 07/20/18 09:34 Dose: 20 gm Nadolol (Corgard -) 40 mg PO DAILY [facility] Pantoprazole Sodium (Protonix -) 40 mg PO BID [facility] Last Admin: 07/20/18 09:34 Dose: 40 mg Thiamine HCl (Vitamin B1 -) 100 mg PO DAILY [facility] Last Admin: 07/20/18 09:34 Dose: 100 mg ASSESSMENT/PLAN: Patient is a 62 y/o female with a 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 #cirrhosis 2/2 alcohol - f/u GI Dr. 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 - Chest CT: no PE, atherosclerotic artery calcification, heapatic cirrhosis, moderate splenomegaly - AST: 145, ALT: 51, alk phosp : 354 #alcohol withdrawal - folic acid and thiamine daily - seizure precautions - fall precautions - librium protocol #constipation - lactulose BID - f/u tomorrow #epistaxis with thrombocytopenia - monitor without DVT ppx for bleeding - hx of thrombocytopenia in the s - use vaseline as needed - currently not bleeding - platelets: 48 #UTI - unlikely - received one dose Ceftriaxone 100 mg - f/u UCX - WBC: 2, LE: neg, nitrates positive #hypercalcemia - ca: 10.5 - protein: 8.4 - monitor #FEN - low salt diet - Mg repleted with 2gm - K 2.4, 40 mm KCL given, 40 po kdur, packet Kphops, - repeat K overnight, and repeat in morning - replete K after mg level noted - continue NS @ 100 #DVT ppx - no ppx for now with bleeding and thrombocytopenia Dispo: patient does not want to go anywhere else to finish detox Visit type - Emergency Visit Emergency Visit: No - New Patient This patient is new to me today: No - Critical Care Critical Care patient: No
[2018-07-20 11:39] LABS: ALBUMIN 3.3 g/dl (3.4-5.0); ALK PHOS 296 U/L (45-117); ANION GAP 13 MMOL/L (8-16); BILIRUBIN,TOTAL 2.2 mg/dL (0.2-1); BLOOD UREA NITROGEN 8 mg/dL (7-18); CALCIUM 8.4 mg/dL (8.5-10.1); CHLORIDE 98 mmol/L (98-107); CO2 27 mmol/L (21-32); CREATININE 0.7 mg/dL (0.55-1.3); GLUCOSE,RANDOM 150 mg/dL (74-106); SGOT/AST 99 U/L (15-37); SGPT/ALT 37 U/L (13-61); SODIUM 138 mmol/L (136-145)
[2018-07-20 11:44] LABS: POTASSIUM 2.4 mmol/L (3.5-5.1)
[2018-07-20] MEDS ORDERED: POTASSIUM CHLORIDE TABS 20 MEQ TABLET.ER (FP) PO ONE (12:00)
[2018-07-20] MEDS: KCL 10 MEQ IVPB 10 MEQ/100 ML INFUS.BAG IVPB SCH ×4 (12:17→16:05)
[2018-07-20] MEDS: NAPH,MB-DB/K PH,MBDB POWDER PACKET PO SCH ×2 (12:17→22:06)
--- NOTE | 2018-07-20 15:36 | PN ---
Teaching Attending Note Name of Resident: Stephanie Godfrey ATTENDING PHYSICIAN STATEMENT I saw and evaluated the patient. I reviewed the resident's note and discussed the case with the resident. I agree with the resident's findings and plan as documented. SUBJECTIVE: no fever or chills. No abd pain, no SOB , no cough . OBJECTIVE: NAD CV : RRR, no MRG Lungs: CTAB Ext : no edema Abd: soft, ND, no shifting dulness, liver is palpated 2 cm below the costal margin, TTP in LLQ , no rebound ASSESSMENT AND PLAN: 62 y/o lady with h/o alcoholic cirrhosis , ETOH abuse, esophageal varices , who presented with abd pain and epistaxis 1- Epistaxis: due to thrombocytopenia. resolved . monitor 2- Liver cirrhosis: LFTS at base line, hepatomegaly in felt on exam. no signs of encephalopathy. no ascitis on exam. - monitor LFTS - cont lasix - GI consult pending Recs 3- ETOH withdrawal : cont libriu m protocol cont thiamine ad folic acid 4- h/o esophageal varices : cont nadolol 5- hypokalemia : replete dispo : HLOC
[2018-07-20] MEDS ORDERED: NAPH,MB-DB/K PH,MBDB POWDER PACKET PO ONE (19:45)
--- NOTE | 2018-07-20 21:03 | CONS ---
DATE OF CONSULTATION: DATE OF DICTATION: 07/20/2018 GASTROINTESTINAL CONSULTATION HISTORY OF PRESENT ILLNESS: The patient is a 62-year-old female with a past medical history significant for cirrhosis and hyperlipidemia. She still abuses alcohol, states that she drinks approximately 7 to 8 shots of vodka on a daily basis. She presents to the hospital with complaints of epistaxis which began approximately 4 days ago. According to her history, she states that her PMD stated was secondary to polyps in her nose. She also complains of constipation over the past couple of days. She denies any nausea, vomiting, hematemesis, melena, or hematochezia. She had an upper endoscopy done in October which did not reveal any varices as per the record, and this was done by . She denies any history of hospitalizations for altered mental status or GI bleed in the past. PAST MEDICAL AND SURGICAL HISTORY: As listed in the HPI with the addition of hysterectomy for fibroids. ALLERGIES: No known drug allergies. SOCIAL HISTORY: Does not smoke. Drinks 7 to 8 shots of vodka daily. Denies any additional drug abuse. FAMILY HISTORY: Noncontributory. HOME MEDICATIONS: includes nadolol. REVIEW OF SYSTEMS: Negative except for pertinent positives in the HPI. PHYSICAL EXAMINATION: VITAL SIGNS: Temperature 98, pulse 90, blood pressure 114/66, pulse oximetry 99% on room air, respiratory rate 18. GENERAL: In no acute distress. HEENT: Icteric sclerae. CARDIOVASCULAR: S1, S2, regular rate and rhythm. LUNGS: Bilaterally clear to auscultation. ABDOMEN: Soft, nontender. EXTREMITIES: No edema. LABORATORY: White blood cell count 7.6, hemoglobin and hematocrit 10/32, platelet count 48. INR 1.3, sodium 138, potassium 3, BUN/creatinine 8/0.7, total bilirubin 2.2, AST 99, ALT 37, alkaline phosphatase 296, albumin 3.3. She had an ultrasound which revealed cholelithiasis and diffuse fatty infiltration of the liver. 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 RECOMMENDATION: ENT evaluation for repeated episodes of epistaxis which are obviously worsened by her thrombocytopenia. Continue on her nadolol 20 mg p.o. daily as well as Protonix 40 mg p.o. b.i.d. Avoid NSAID therapy. If she has not had an MRCP, would recommend an MRCP to further evaluate her liver as well as an AFP. She should also be restarted rifaximin 550 mg p.o. b.i.d. or lactulose 30 mL t.i.d. which will also help her with her constipation. Alcohol withdrawal protocol. Monitor LFTs and INR daily while hospitalized. Antibiotics, urinary tract infection as per primary medical team. Patient will be followed by the GI service. DO MONIQUE BARONE/[id number]
[2018-07-21] MEDS: chlordiazePOXIDE 5 MG CAPSULE PO SCH ×4 (06:08→23:17)
[2018-07-21 06:56] LABS: HEMATOCRIT 30.8 % (32.4-45.2); HEMOGLOBIN 10.9 GM/dL (10.7-15.3); MCHC 35.4 g/dl (32.0-36.0); MEAN CELL VOLUME 99.1 fl (80-96); MEAN PLT VOLUME 9.7 fl (7.5-11.1); PLATELET COUNT 59 K/MM3 (134-434); RBC 3.11 M/mm3 (3.60-5.2); WHITE BLOOD COUNT 8.2 K/mm3 (4.0-10.0)
[2018-07-21 07:13] LABS: INR 1.25 (0.83-1.09); PROTHROMBIN TIME (PATIENT) 14.8 SEC (9.7-13.0)
[2018-07-21 08:02] LABS: ALBUMIN 3.3 g/dl (3.4-5.0); ALK PHOS 325 U/L (45-117); ANION GAP 12 MMOL/L (8-16); BILIRUBIN,TOTAL 2.4 mg/dL (0.2-1); BLOOD UREA NITROGEN 6 mg/dL (7-18); CALCIUM 8.3 mg/dL (8.5-10.1); CHLORIDE 98 mmol/L (98-107); CO2 28 mmol/L (21-32); CREATININE 0.6 mg/dL (0.55-1.3); GLUCOSE,RANDOM 136 mg/dL (74-106); MAGNESIUM 1.8 mg/dL (1.8-2.4); PHOSPHOROUS 1.8 mg/dL (2.5-4.9); SGOT/AST 103 U/L (15-37); SGPT/ALT 41 U/L (13-61); SODIUM 138 mmol/L (136-145); TOT PROT 6.9 g/dl (6.4-8.2)
[2018-07-21 08:28] LABS: POTASSIUM 2.6 mmol/L (3.5-5.1)
[2018-07-21] MEDS: KCL 10 MEQ IVPB 10 MEQ/100 ML INFUS.BAG IVPB SCH ×3 (08:36→09:29)
[2018-07-21] MEDS: FOLIC ACID 1 MG TABLET (FP) PO SCH (09:26)
[2018-07-21] MEDS: FUROSEMIDE 20 MG TABLET (FP) PO SCH (09:26)
[2018-07-21] MEDS: THIAMINE HCL 100 MG TABLET (FP) PO SCH (09:26)
[2018-07-21] MEDS: NAPH,MB-DB/K PH,MBDB POWDER PACKET PO SCH ×2 (09:26→21:17)
[2018-07-21] MEDS: PANTOPRAZOLE 40 MG TABLET (FP) PO SCH ×2 (09:26→21:17)
[2018-07-21] MEDS: NADOLOL 20 MG TABLET (FP) PO SCH (09:26)
[2018-07-21] MEDS ORDERED: POTASSIUM CHLORIDE TABS 10 MEQ TABLET.ER (FP) PO ONE (09:30)
[2018-07-21] MEDS ORDERED: PANTOPRAZOLE 40 MG TABLET (FP) PO SCH (10:00)
[2018-07-21] MEDS ORDERED: NAPH,MB-DB/K PH,MBDB POWDER PACKET PO SCH (10:00)
--- NOTE | 2018-07-21 10:12 | PN ---
Teaching Attending Note Name of Resident: Stephanie Godfrey ATTENDING PHYSICIAN STATEMENT I saw and evaluated the patient. I reviewed the resident's note and discussed the case with the resident. I agree with the resident's findings and plan as documented. SUBJECTIVE: * No fever or chills. No abd pain today, denies BM yesterday or today OBJECTIVE: NAD CV : RRR, no MRG Lungs: CTAB Ext : no edema Abd: soft, ND, no shifting dulness, liver is palpated 2 cm below the costal margin, no tenderness to palpation today ASSESSMENT AND PLAN: 62 y/o lady with h/o alcoholic cirrhosis , ETOH abuse, esophageal varices , who presented with abd pain and epistaxis 1- Epistaxis: due to thrombocytopenia. resolved . monitor 2- Liver cirrhosis: no signs of encephalopathy.but no adequate BMs - monitor LFTS - cont lasix - increase lactulose to achieve 3-4 BMs a day - AFP NL this admission. MRCP done in 10/24, will check with GI if repeat MRCP in needed 3- ETOH withdrawal : cont librium protocol cont thiamine cont folic acid 4- h/o esophageal varices : cont nadolol 5- hypokalemia : replete with IV and PO Kcl. add standing dose of potassium 6- hypomagnesemia and hypophosphatemia: replete and start standing dosing . dispo : HLOC
[2018-07-21] MEDS: MAGNESIUM OXIDE 400 MG TABLET (FP) PO SCH ×3 (10:26→21:17)
--- NOTE | 2018-07-21 13:45 | PN ---
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 Patient reports she had a bowel movement yesterday. Reports she feels " disoriented". No acute events overnight. OBJECTIVE: Vital Signs Temperature 98.1 F 07/21/18 08:42 Pulse Rate 98 H 07/21/18 08:42 Respiratory Rate 20 07/21/18 08:42 Blood Pressure 146/83 07/21/18 08:42 O2 Sat by Pulse Oximetry (%) 99 07/21/18 08:14 GENERAL: Awake, alert, and fully oriented, in no acute distress. EYES: Pupils equal, round and reactive to light, extraocular movements intact LUNGS: Breath sounds equal, clear to auscultation bilaterally. No wheezes, and no crackles. No accessory muscle use. HEART: tachycardic, 3/6 systolic murmur at upper sternal borders ABDOMEN: Soft, nontender, not distended, hepatomegaly, hypoactive bowel sounds MUSCULOSKELETAL: Normal range of motion at all joints. No bony deformities or tenderness. No CVA tenderness. LOWER EXTREMITIES: 2+ pulses, warm, well-perfused. No calf tenderness. No peripheral edema. NEUROLOGICAL: Cranial nerves II-XII intact. Normal speech. PSYCHIATRIC: Cooperative. Good eye contact. Appropriate mood and affect. SKIN: Warm, dry, left arm 4 x4 cm eccymosis CBC, BMP 07/21/18 06:30 07/21/18 06:30 Active Medications Chlordiazepoxide HCl (Librium -) 15 mg PO [id number] [facility] Stop: 07/21/18 23:01 Last Admin: 07/21/18 11:09 Dose: 15 mg Chlordiazepoxide HCl (Librium -) 25 mg PO Q4H PRN PRN Reason: WITHDRAWAL(CONT SUBST) Stop: 07/22/18 17:17 Chlordiazepoxide HCl (Librium -) 10 mg PO [id number] [facility] Stop: 07/22/18 23:01 Folic Acid (Folic Acid -) 1 mg PO DAILY [facility] Last Admin: 07/21/18 09:26 Dose: 1 mg Furosemide (Lasix -) 20 mg PO DAILY [facility] Last Admin: 07/21/18 09:26 Dose: 20 mg Lactulose (Cephulac (Oral Use)) 30 gm PO TID [facility] Magnesium Oxide (Mag-Ox -) 400 mg PO BID [facility] Last Admin: 07/21/18 10:28 Dose: 400 mg Nadolol (Corgard -) 40 mg PO DAILY [facility] Last Admin: 07/21/18 09:26 Dose: 40 mg Pantoprazole Sodium (Protonix -) 40 mg PO BID [facility] Last Admin: 07/21/18 09:26 Dose: 40 mg Potassium Chloride (Potassium Chloride Oral Liquid) 40 meq PO BID [facility] Potassium Phos/Sodium Phos (Phos-Nak Packet -) 1 packet PO BID [facility] Last Admin: 07/21/18 09: Dose: 1 packet Thiamine HCl (Vitamin B1 -) 100 mg PO DAILY [facility] Last Admin: 07/21/18: Dose: 100 mg ASSESSMENT/PLAN: Patient is a 62 y/o female with a 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 #cirrhosis 2/2 alcohol - f/u GI Dr. López - nadolol 40 mg daily - abdomen US: cholelithiasis and fatty liver infiltrate - protonix 40 BID - Avoid all NSAIDS - Chest CT: no PE, atherosclerotic artery calcification, heapatic cirrhosis, moderate splenomegaly - AST: 145, ALT: 51, alk phosp : 354 - 10/24 MRCP: hepatomegaly with severe fatty infiltration of the liver, no enhancing liver mass, cholelithiasis and sludge - spoke with Dr. Bobo, does not need repeat MRCP except for once a year #alcohol withdrawal - folic acid and thiamine daily - seizure precautions - fall precautions - librium protocol day 3 #constipation - lactulose 30 TID - f/u tomorrow #epistaxis: resolved with thrombocytopenia - monitor without DVT ppx for bleeding - hx of thrombocytopenia in the s - use vaseline as needed - currently not bleeding - platelets trending up slighlty #UTI - unlikely - received one dose Ceftriaxone 100 mg - UCX: contaminated - WBC: 2, LE: neg, nitrates positive #hypercalcemia - ca: 10.5 - protein: 8.4 - monitor #FEN - low salt diet - KCL 40 meq BID po liquid - Mg 400 BID - phos NA K packet BID - f/u daily labs - continue NS @ 100 #DVT ppx - no ppx for now with bleeding and thrombocytopenia Dispo: patient does not want to go anywhere else to finish detox Visit type - Emergency Visit Emergency Visit: No - New Patient This patient is new to me today: No - Critical Care Critical Care patient: No
[2018-07-21] MEDS ORDERED: LACTULOSE 20 GM/30 ML UDC (FOR ORAL USE ONLY) PO SCH (14:00)
[2018-07-21] MEDS: LACTULOSE 20 GM/30 ML UDC (FOR ORAL USE ONLY) PO SCH ×2 (14:10→21:17)
[2018-07-21 14:19] LABS: ANION GAP 7 MMOL/L (8-16); BLOOD UREA NITROGEN 4 mg/dL (7-18); CALCIUM 8.5 mg/dL (8.5-10.1); CHLORIDE 97 mmol/L (98-107); CO2 31 mmol/L (21-32); CREATININE 0.6 mg/dL (0.55-1.3); GLUCOSE,RANDOM 186 mg/dL (74-106); POTASSIUM 3.1 mmol/L (3.5-5.1); SODIUM 135 mmol/L (136-145)
[2018-07-21] MEDS ORDERED: POTASSIUM CHLORIDE TABS 20 MEQ TABLET.ER (FP) PO ONE (14:51)
[2018-07-22] MEDS ORDERED: chlordiazePOXIDE 5 MG CAPSULE ONE ×4 (05:28→21:51)
[2018-07-22] MEDS: chlordiazePOXIDE HCL 10 MG CAPSULE PO SCH ×4 (05:37→22:06)
[2018-07-22] MEDS: LACTULOSE 20 GM/30 ML UDC (FOR ORAL USE ONLY) PO SCH ×2 (05:38→13:15)
[2018-07-22 06:27] LABS: HEMATOCRIT 32.2 % (32.4-45.2); HEMOGLOBIN 10.7 GM/dL (10.7-15.3); MCH 33.4 pg (25.7-33.7); MCHC 33.1 g/dl (32.0-36.0); MEAN CELL VOLUME 100.7 fl (80-96); MEAN PLT VOLUME 9.1 fl (7.5-11.1); PLATELET COUNT 66 K/MM3 (134-434); RDW 16.3 % (11.6-15.6); WHITE BLOOD COUNT 7.8 K/mm3 (4.0-10.0)
[2018-07-22 07:05] LABS: ALK PHOS 338 U/L (45-117); ANION GAP 9 MMOL/L (8-16); BLOOD UREA NITROGEN 4 mg/dL (7-18); CALCIUM 8.3 mg/dL (8.5-10.1); CHLORIDE 98 mmol/L (98-107); CO2 29 mmol/L (21-32); CREATININE 0.5 mg/dL (0.55-1.3); GLUCOSE,RANDOM 134 mg/dL (74-106); MAGNESIUM 1.7 mg/dL (1.8-2.4); PHOSPHOROUS 2.6 mg/dL (2.5-4.9); POTASSIUM 3.3 mmol/L (3.5-5.1); SGOT/AST 79 U/L (15-37); SGPT/ALT 42 U/L (13-61); SODIUM 136 mmol/L (136-145); TOT PROT 6.6 g/dl (6.4-8.2)
[2018-07-22] MEDS: NADOLOL 20 MG TABLET (FP) PO SCH (09:18)
[2018-07-22] MEDS: MAGNESIUM OXIDE 400 MG TABLET (FP) PO SCH ×2 (09:18→22:04)
[2018-07-22] MEDS: POTASSIUM CHLORIDE ORAL LIQUID 20 MEQ/15 ML PO SCH ×2 (09:18→22:05)
[2018-07-22] MEDS: FUROSEMIDE 20 MG TABLET (FP) PO SCH (09:18)
[2018-07-22] MEDS: PANTOPRAZOLE 40 MG TABLET (FP) PO SCH ×2 (09:18→22:04)
[2018-07-22] MEDS: NAPH,MB-DB/K PH,MBDB POWDER PACKET PO SCH ×2 (09:18→22:04)
[2018-07-22] MEDS: THIAMINE HCL 100 MG TABLET (FP) PO SCH (09:18)
[2018-07-22] MEDS: FOLIC ACID 1 MG TABLET (FP) PO SCH (09:19)
[2018-07-22] MEDS: SENNOSIDES/DOCUSATE COMBO (SENNA PLUS) TABLET (UD) PO SCH ×2 (11:05→22:05)
--- NOTE | 2018-07-22 13:00 | PN ---
GI Progress Note Subjective: No acute events States feeling well overall. Denies abdominal pain Complains of frequent bowel movements - Objective Vital Signs: Vital Signs Temperature 98 F 07/22/18 09:00 Pulse Rate 93 H 07/22/18 09:00 Respiratory Rate 20 07/22/18 09:00 Blood Pressure 137/76 07/22/18 09:00 O2 Sat by Pulse Oximetry (%) 95 07/22/18 09:00 Constitutional: Calm Eyes: No: Sclera Icterus Cardiovascular: Yes: Regular Rate and Rhythm. No: Murmur Respiratory: Yes: CTA Bilaterally Gastrointestinal Inspection: No: Distention ...Auscultate: Yes: Normoactive Bowel Sounds ...Palpate: Yes: Soft. No: Tenderness Edema: No (No LE edema) Neurological: Yes: Alert, Oriented. No: Asterixis Labs: CBC, BMP 07/22/18 05:30 07/22/18 05:30 INR, PTT INR 1.25 (0.83-1.09) H 07/21/18 06:30 Hepatic Panel Total Bilirubin 2.0 mg/dL (0.2-1) H 07/22/18 05:30 Direct Bilirubin 2.4 mg/dL (0.0-0.2) H 07/19/18 10:03 AST 79 U/L (15-37) H 07/22/18 05:30 ALT 42 U/L (13-61) 07/22/18 05:30 Alkaline Phosphatase 338 U/L (45-117) H 07/22/18 05:30 Albumin 3.0 g/dl (3.4-5.0) L 07/22/18 05:30 Laboratory Tests 07/21/18 13:10 Tumor Marker AFP 3.1 Problem List - Problems (1) Cirrhosis Assessment/Plan: ALcoholic cirrhosiuis with continued alcohol consumption Explained to Ms. Perez that she needs to completely abstain from alcohol. I explained that continued alcohol consumption will only expedite continued decompensation of her liver disease and eventual from complications from her disease. She said that she would be following upo with Dr. Bobo as an outpatient. Will need q6 month AFP tumor marker and US to screen for HCC Decrease lactulose. Suspect that in combination with PO megnesium supplementation contributing to frequent bowel movements Had MRI/MRCP 10/24 given her elevated bilirubin and ALP. Can defer at this time. Code(s): K74.60 - UNSPECIFIED CIRRHOSIS OF LIVER
--- NOTE | 2018-07-22 14:20 | PN ---
Teaching Attending Note Name of Resident: Stephanie Godfrey ATTENDING PHYSICIAN STATEMENT I saw and evaluated the patient. I reviewed the resident's note and discussed the case with the resident. I agree with the resident's findings and plan as documented. SUBJECTIVE: No fever or chills. No abd pain, HAD 3 BMs yesterday per her . 4 are documented OBJECTIVE: NAD CV : RRR, no MRG Lungs: CTAB Ext : no edema Abd: soft, ND, liver is palpated 2 cm below the costal margin, no tenderness to palpation today ASSESSMENT AND PLAN: 62 y/o lady with h/o alcoholic cirrhosis , ETOH abuse, esophageal varices , who presented with abd pain and epistaxis 1- Epistaxis: due to thrombocytopenia. resolved . monitor 2- Liver cirrhosis: - monitor LFTS - cont lasix - lactulose - Nl AFP , reepat in 6 months as ou tpt . need MRCP in 10/25 3- ETOH withdrawal : cont librium protocol . will finish tonight cont thiamine cont folic acid 4- h/o esophageal varices : cont nadolol 5- cont to replete electrolytes dispo : HLOC will finishe her detox tonight . will get PT eval, . dipo place depending on results. medically hannah lbe ready in am
[2018-07-22] MEDS ORDERED: COLCHICINE 0.6 MG TABLET (FP) PO ONE (16:15)
--- NOTE | 2018-07-22 17:33 | PN ---
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 Patient reports she had a bowel movement yesterday. Reports she is better. No complaints. OBJECTIVE: Vital Signs Temperature 98.2 F 07/22/18 14:51 Pulse Rate 78 07/22/18 14:51 Respiratory Rate 20 07/22/18 14:51 Blood Pressure 127/75 07/22/18 14:51 O2 Sat by Pulse Oximetry (%) 95 07/22/18 09:00 GENERAL: Awake, alert, and fully oriented, in no acute distress. EYES: Pupils equal, round and reactive to light, extraocular movements intact LUNGS: Breath sounds equal, clear to auscultation bilaterally. No wheezes, and no crackles. No accessory muscle use. HEART: tachycardic, 3/6 systolic murmur at upper sternal borders ABDOMEN: Soft, nontender, not distended, hepatomegaly, hypoactive bowel sounds MUSCULOSKELETAL: Normal range of motion at all joints. No bony deformities or tenderness. No CVA tenderness. LOWER EXTREMITIES: 2+ pulses, warm, well-perfused. No calf tenderness. No peripheral edema. NEUROLOGICAL: Cranial nerves II-XII intact. Normal speech. PSYCHIATRIC: Cooperative. Good eye contact. Appropriate mood and affect. SKIN: Warm, dry, left arm 4 x4 cm eccymosis CBC, BMP 07/22/18 05:30 07/22/18 05:30 Active Medications Chlordiazepoxide HCl (Librium -) 10 mg PO [id number] [facility] Stop: 07/22/18 23:01 Last Admin: 07/22/18 11:05 Dose: 10 mg Folic Acid (Folic Acid -) 1 mg PO DAILY [facility] Last Admin: 07/22/18 09:19 Dose: 1 mg Furosemide (Lasix -) 20 mg PO DAILY [facility] Last Admin: 07/22/18 09:18 Dose: 20 mg Lactulose (Cephulac (Oral Use)) 30 gm PO DAILY [facility] Magnesium Oxide (Mag-Ox -) 400 mg PO BID [facility] Last Admin: 07/22/18 09:18 Dose: 400 mg Nadolol (Corgard -) 40 mg PO DAILY [facility] Last Admin: 07/22/18 09:18 Dose: 40 mg Pantoprazole Sodium (Protonix -) 40 mg PO BID [facility] Last Admin: 07/22/18 09:18 Dose: 40 mg Potassium Chloride (Potassium Chloride Oral Liquid) 40 meq PO BID [facility] Last Admin: 07/22/18 09:18 Dose: 40 meq Potassium Phos/Sodium Phos (Phos-Nak Packet -) 1 packet PO BID [facility] Last Admin: 07/22/18 09:18 Dose: 1 packet Senna/Docusate Sodium (Pericolace -) 1 tablet PO HS [facility] Last Admin: 07/22/18 11:05 Dose: 1 tablet Thiamine HCl (Vitamin B1 -) 100 mg PO DAILY [facility] Last Admin: 07/22/18 09:18 Dose: 100 mg ASSESSMENT/PLAN: Patient is a 62 y/o female with a 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 #cirrhosis 2/2 alcohol - f/u GI Dr. López - nadolol 40 mg daily - abdomen US: cholelithiasis and fatty liver infiltrate - protonix 40 BID - Avoid all NSAIDS - Chest CT: no PE, atherosclerotic artery calcification, heapatic cirrhosis, moderate splenomegaly - AST: 145, ALT: 51, alk phosp : 354 - 10/24 MRCP: hepatomegaly with severe fatty infiltration of the liver, no enhancing liver mass, cholelithiasis and sludge - spoke with Dr. Bobo, does not need repeat MRCP except for once a year #gout - colchicine 1.2 mg - if pain continue .6mg tomorrow #alcohol withdrawal - folic acid and thiamine daily - seizure precautions - fall precautions - librium protocol day 4 #constipation - lactulose 30 BID - f/u tomorrow #epistaxis: resolved with thrombocytopenia - monitor without DVT ppx for bleeding - hx of thrombocytopenia in the - use vaseline as needed - currently not bleeding - platelets trending up slighlty #UTI - unlikely - received one dose Ceftriaxone 100 mg - UCX: contaminated - WBC: 2, LE: neg, nitrates positive #hypercalcemia - ca: 10.5 - protein: 8.4 - monitor #FEN - low salt diet - continue to monitor electrolytes - f/u daily labs - continue NS @ 100 #DVT ppx - no ppx for now with bleeding and thrombocytopenia Dispo: walked with PT, can leave tomorrow after end of detox Visit type - Emergency Visit Emergency Visit: No - New Patient This patient is new to me today: No - Critical Care Critical Care patient: No
[2018-07-23 08:21] LABS: HEMATOCRIT 34.2 % (32.4-45.2); HEMOGLOBIN 11.1 GM/dL (10.7-15.3); MCHC 32.5 g/dl (32.0-36.0); MEAN CELL VOLUME 101.5 fl (80-96); PLATELET COUNT 106 K/MM3 (134-434); RBC 3.37 M/mm3 (3.60-5.2); RDW 16.5 % (11.6-15.6); WHITE BLOOD COUNT 8.5 K/mm3 (4.0-10.0)
[2018-07-23 09:04] LABS: BLOOD UREA NITROGEN 5 mg/dL (7-18); CREATININE 0.5 mg/dL (0.55-1.3); GLUCOSE,RANDOM 124 mg/dL (74-106)
[2018-07-23 09:05] LABS: ALBUMIN 3.2 g/dl (3.4-5.0); ALK PHOS 423 U/L (45-117); ANION GAP 8 MMOL/L (8-16); BILIRUBIN,TOTAL 2.1 mg/dL (0.2-1); CALCIUM 8.9 mg/dL (8.5-10.1); CHLORIDE 95 mmol/L (98-107); CO2 33 mmol/L (21-32); MAGNESIUM 1.7 mg/dL (1.8-2.4); PHOSPHOROUS 3.7 mg/dL (2.5-4.9); POTASSIUM 3.9 mmol/L (3.5-5.1); SGOT/AST 82 U/L (15-37); SGPT/ALT 46 U/L (13-61); SODIUM 135 mmol/L (136-145)
[2018-07-23] MEDS ORDERED: LACTULOSE 20 GM/30 ML UDC (FOR ORAL USE ONLY) PO SCH (10:00)
[2018-07-23] MEDS: THIAMINE HCL 100 MG TABLET (FP) PO SCH (10:28)
[2018-07-23] MEDS: NADOLOL 20 MG TABLET (FP) PO SCH (10:28)
[2018-07-23] MEDS: FUROSEMIDE 20 MG TABLET (FP) PO SCH (10:28)
[2018-07-23] MEDS: PANTOPRAZOLE 40 MG TABLET (FP) PO SCH (10:28)
[2018-07-23] MEDS: MAGNESIUM OXIDE 400 MG TABLET (FP) PO SCH (10:28)
[2018-07-23] MEDS: FOLIC ACID 1 MG TABLET (FP) PO SCH (10:28)
[2018-07-23] MEDS: NAPH,MB-DB/K PH,MBDB POWDER PACKET PO SCH (10:29)
[2018-07-23] MEDS: POTASSIUM CHLORIDE ORAL LIQUID 20 MEQ/15 ML PO SCH (10:29)
--- NOTE | 2018-07-23 11:03 | PN ---
Teaching Attending Note Name of Resident: Stephanie Godfrey ATTENDING PHYSICIAN STATEMENT I saw and evaluated the patient. I reviewed the resident's note and discussed the case with the resident. I agree with the resident's findings and plan as documented. SUBJECTIVE: No fever or chills. no abd pain. OBJECTIVE: NAD CV : RRR, no MRG Lungs: CTAB Ext : no edema Abd: soft, ND, liver is palpated 2 cm below the costal margin, no tenderness to palpation today ASSESSMENT AND PLAN: 62 y/o lady with h/o alcoholic cirrhosis , ETOH abuse, esophageal varices , who presented with abd pain and epistaxis 1- Epistaxis: due to thrombocytopenia. resolved . monitor 2- Liver cirrhosis: - monitor LFTS - cont lasix - lactulose - repeat in 6 months as out pt . need MRCP in 10/25 - apt made for her with dr. Bobo 3- ETOH withdrawal: finished librium taper cont thiamine cont folic acid - will not resume home klonopin 4- h/o esophageal varices : cont nadolol 5- cont Mag abd Kcl after dc . BMP , Mg as out pt DC sudhir e. apt made with GI, f/u with ENT and PCP as out pt
--- NOTE | 2018-07-23 11:20 | DS ---
Physical Exam: SUBJECTIVE:Patient is a 62 y/o female with a 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 Patient reports she feels well and walked well with PT yesterday. NO acute events overnight. OBJECTIVE: Vital Signs Temperature 98.4 F 07/23/18 06:00 Pulse Rate 76 07/23/18 06:00 Respiratory Rate 18 07/23/18 06:00 Blood Pressure 110/57 L 07/23/18 06:00 O2 Sat by Pulse Oximetry (%) 95 07/22/18 21:00 PHYSICAL EXAM GENERAL: Awake, alert, and fully oriented, in no acute distress. EYES: Pupils equal, round and reactive to light, extraocular movements intact LUNGS: Breath sounds equal, clear to auscultation bilaterally. No wheezes, and no crackles. No accessory muscle use. HEART: tachycardic, 3/6 systolic murmur at upper sternal borders ABDOMEN: Soft, nontender, not distended, hepatomegaly, hypoactive bowel sounds MUSCULOSKELETAL: Normal range of motion at all joints. No bony deformities or tenderness. No CVA tenderness. LOWER EXTREMITIES: 2+ pulses, warm, well-perfused. No calf tenderness. No peripheral edema. NEUROLOGICAL: Cranial nerves II-XII intact. Normal speech. PSYCHIATRIC: Cooperative. Good eye contact. Appropriate mood and affect. SKIN: Warm, dry, left arm 4 x4 cm eccymosis LABS CBC, BMP 07/23/18 07:52 07/23/18 07:52 HOSPITAL COURSE: Date of Admission:07/19/18 patient admitted to the hospital for epistaxis with thrombocytopenia and abdominal pain. Epistaxis resolved, patient given referral to f/u with ENT. Thrombocytopenia chornic and remained stable. Patient cirrhosis was monitored and treated appropriately. Patient was treated per detox protocol for withdrawal from alcohol. Patient was evaluated by GI. Patient had a MRI in the last year and did not need repeat. Made appointment for patient to f/u with GI as an outpatient. Patients electrolytes were repleted, and she will continue to take thiamine, folic acid, potassium, magnesium as an outpatient. Patient able to walk with PT, prescribed a walker. Patient given 1 week BMP to follow up labs. CXR: no acute pathology Chest CT: no evidence of PE, athersclerotic calcifications present, hepatic cirrhosis with multifocal infiltration, moderate splenomegaly US: diffuse fatty liver, cholelithiasis Date of Discharge: 07/23/18 Minutes to complete discharge: 40 Discharge Summary Reason For Visit: UTI; ALCOHOLIC CIRRHOSIS; ELEVATED TROPONIN LEVELS Condition: Improved - Instructions Diet, Activity, Other Instructions: You were admitted to the hospital for nose bleeds and abdominal pain. Your nose bleeds have resolved and your abdominal pain was due to constipation. We gave you medication and your constipation has resolved. While you were here we treated your alcohol withdrawal. It is very important that you stop drinking. It will worsen your cirrhosis, which leads to many side effects including increased bleeding, liver failure, heart failure, and even . We have made an appointment for you with GI, Dr. Bobo for July 29 10: [address] [place] [address] , Please follow up to monitor your cirrhosis. For your constipation please continue to take: Lactulose 20 by mouth daily - You should have between 1-3 bowel movements a day, please take another dose of lactulose if you need it Please take the medications that are on the discharge medication list. before you run out, you need to contact your doctor to refill Please follow up with your primary care physician within one week. Have your primary care doctor draw a BMP to check your potassium Return to the Emergency Department if you have any bleeding, nausea, vomiting, chest pain, shortness of breath, or abdominal pain. you need a blood work in 1 week and to be faxed to Dr. Skinner. Referrals: Stephanie Bobo DO [Staff Physician] - 1 Week Patricia Skinner MD [Primary Care Provider] - 1 Week Delano Kasper MD [Staff Physician] - Disposition: VNS/HOME HEALTH CARE - Home Medications Comprehensive Discharge Medication List: Ambulatory Orders Clonazepam 1 mg PO HS PRN 07/20/18 Furosemide 20 mg PO DAILY 07/20/18 Pantoprazole Sodium 40 mg PO DAILY 07/20/18 Folic Acid - 1 mg PO DAILY #30 tablet 07/23/18 Lactulose (Oral Use) [Cephulac -] 20 gm PO DAILY #30 udc 07/23/18 Magnesium Oxide [Mag-Ox -] 400 mg PO DAILY #30 tablet 07/23/18 Miscellaneous Medical Supply [Outpatient Order] 1 each ASDIR #1 misc Nadolol [Corgard -] 40 mg PO DAILY #30 tablet 07/23/18 Potassium Chloride [K-Dur -] 20 meq PO DAILY #30 tablet.er 07/23/18 Thiamine HCl [Vitamin B1 -] 100 mg PO DAILY #30 tablet 07/23/18 Walker [Ultra-Light Rollator] 1 each MC DAILY #1 each 07/23/18 This patient is new to me today: No Emergency Visit: No Critical Care patient: No - Discharge Referral Referred to [facility] No
[2018-07-23 11:48] VITALS: BP 102/53; PULSE 78; TEMP 98.5
== END 2018-07-23 13:04 | disposition home health service (06) | DRG 433 ==
LOC: JER 09:12 → JERBED 15:50 → OBSVTOIN 17:12 → J4W 21:13
PROVIDERS: ADMIT Internal Medicine; ATTEND Internal Medicine
PROC: HZ2ZZZZ Detoxification Services for Substance Abuse Treatment (ICD-10-PCS; principal; 2018-07-19)
DX: K70.30 Alcoholic cirrhosis of liver without ascites (principal); F10.239 Alcohol dependence with withdrawal, unspecified; N39.0 Urinary tract infection, site not specified; E78.5 Hyperlipidemia, unspecified; K59.00 Constipation, unspecified; R04.0 Epistaxis; D69.6 Thrombocytopenia, unspecified; E83.52 Hypercalcemia; M10.9 Gout, unspecified; E87.6 Hypokalemia; E83.42 Hypomagnesemia; E83.39 Other disorders of phosphorus metabolism
CPT/HCPCS: 36415; 71046-TC-FY; 71275-TC; 76705-TC; 80048; 80053; 81003; 81015; 82105; 82248; 83735; 84100; 84132; 84484; 85025; 85027; 85610; 85730; 87086; 93005; 93010; 97116-GP; 97161-GP; 99285-25; G0378; J7030

== ENCOUNTER 2018-10-05 09:12 | Day surgery (SDC) | payer BC ==
[2018-10-04 11:13] VITALS: BMI 22.4
[2018-10-05 09:41] VITALS: TEMP 98.3
[2018-10-05] MEDS ORDERED: PROPOFOL 20 ML ONE (09:49)
[2018-10-05] MEDS ORDERED: LIDOCAINE HCL/PF 2% SDV 5ML VIAL ONE (09:49)
[2018-10-05 11:07] VITALS: BP 110/60; PULSE 66
--- NOTE | 2018-10-07 17:06 | PATH ---
Surgical Pathology Report Patient Name: CHRIS BINGHAM [facility] Rec. #: [id number] /Age/Gender: 1955 (Age: 63) / F Account: [id number] Location: [facility] Taken: 10/05/2018 Received: 10/05/2018 Reported: 10/07/2018 Physicians: Stephanie Bobo M.D. Specimen(s) Received A: SECOND PORTION DUODENUM BIOPSY B: ANTRUM BIOPSY Clinical History Cirrhosis of liver Postoperative diagnosis: Gastritis, grade 1 Patel's Final Diagnosis A. SECOND PORTION DUODENUM, BIOPSY: DUODENUM MUCOSA WITH NO DIAGNOSTIC ABNORMALITIES. NO HISTOLOGIC EVIDENCE OF CELIAC DISEASE. B. ANTRUM, BIOPSY: GASTRIC MUCOSA WITH CHRONIC GASTRITIS. IMMUNOSTAIN FOR H. PYLORI IS NEGATIVE. NEGATIVE FOR INTESTINAL METAPLASIA. Electronically Signed Ozzie Tony M.D. Gross Description A. Received in formalin, labeled "second portion of duodenum" is a michaud, irregular portion of soft tissue measuring 0.4 cm. in greatest dimension. The specimen is submitted in toto in one cassette. B. Received in formalin, labeled "antrum biopsy" is a michaud, irregular portion of soft tissue measuring 0.4 cm. in greatest dimension. The specimen is submitted in toto in one cassette. 10/06/2018 [facility]10/06/2018
== END 2018-10-05 11:10 | disposition home or self-care (01) ==
LOC: FASU-ENDO 09:12
PROVIDERS: ATTEND Internal Medicine Gastroenterology
PROC: 0DB68ZX Excision of Stomach, Via Natural or Artificial Opening Endoscopic, Diagnostic (ICD-10-PCS; 2018-10-05)
PROC: 0DB98ZX Excision of Duodenum, Via Natural or Artificial Opening Endoscopic, Diagnostic (ICD-10-PCS; principal; 2018-10-05 10:23)
DX: Z13.810 Encounter for screening for upper gastrointestinal disorder (principal); I85.00 Esophageal varices without bleeding; K29.50 Unspecified chronic gastritis without bleeding; D64.9 Anemia, unspecified; Z87.19 Personal history of other diseases of the digestive system
CPT/HCPCS: 88305-TC; 88342-TC

== ENCOUNTER 2019-06-24 10:08 | Inpatient (IN) | payer BC ==
--- NOTE | 2019-06-24 10:38 | PDOC ---
History of Present Illness - General Chief Complaint: Weakness Stated Complaint: WEAKNESS Time Seen by Provider: 06/24/19 10:38 - History of Present Illness Initial Comments: 06/24/19 10:40 Ms. Perez is a 63 yo female w/ pmh of cirrhosis 2/2 to alcohol abuse ( continues to drink 4 shots of vodka/day since February), HLD, pre-DM, and portal hypertensive gastropathy (w/o varices) who presents for evaluation of 3 week history of loss of appetite w/ generalized fatigue and constipation. Presents today as she felt light-headed after a bowel movement which required significant straining. Patient reports this occurred at approximately 0830 and resolved quickly with sitting. also reports patient's eyes look mildly yellow which is new within the last day. Patient further endorses increased urinary frequency w/ 4 episodes daily. Denies other complaints at this time. The patient denies chest pain, shortness of breath, and headache. Denies fever, chills, nausea, vomit, diarrhea and constipation. Denies dysuria, urgency and hematuria. Past History - Past Medical History Allergies/Adverse Reactions: Allergies Allergy/AdvReac Type Severity Reaction Status Date / Time No Known Allergies Allergy Verified 06/24/19 10:15 Home Medications: Ambulatory Orders Clonazepam 1 mg PO HS PRN 07/20/18 Pantoprazole Sodium 40 mg PO DAILY 07/20/18 Folic Acid - 1 mg PO DAILY #30 tablet 07/23/18 Magnesium Oxide [Mag-Ox -] 400 mg PO DAILY #30 tablet 07/23/18 Nadolol [Corgard -] 40 mg PO DAILY #30 tablet 07/23/18 Thiamine HCl [Vitamin B1 -] 100 mg PO DAILY #30 tablet 07/23/18 Calcium Citrate/Vitamin D3 [Citracal-Vit D 200 mg-250 Tab] 1 each PO DAILY 10/04 Multivitamin [One-Daily Multi-Vitamin] 1 each PO DAILY 10/04/18 Pravastatin Sodium 20 mg PO DAILY 10/04/18 Anemia: No Asthma: No Cancer: No Cardiac Disorders: No CVA: No COPD: No CHF: No Dementia: No Diabetes: Yes (borderline) GI Disorders: Yes (cholelithiasis,) Disorders: No HTN: No Hypercholesterolemia: Yes Liver Disease: Yes (cirrhosis) Seizures: No Thyroid Disease: No - Surgical History Abdominal Surgery: No Appendectomy: No Cardiac Surgery: No Cholecystectomy: No Lung Surgery: No Neurologic Surgery: No Orthopedic Surgery: No - Immunization History Immunization Up to Date: No - Psycho Social/Smoking Cessation Hx Smoking History: Never smoked Have you smoked in the past 12 months: No Hx Alcohol Use: Yes (OCCASIONALLY) Drug/Substance Use Hx: No Substance Use Type: Alcohol Hx Substance Use Treatment: No Review of Systems - Review of Systems Comments:: 06/24/19 10:42 GENERAL/CONSTITUTIONAL: +Generalized weakness as described. No fever or chills. HEAD, EYES, EARS, NOSE AND THROAT: +Yellowed eyes x1 day. No change in vision. No ear pain or discharge. No sore throat. CARDIOVASCULAR: No chest pain or shortness of breath RESPIRATORY: No cough, wheezing, or hemoptysis. GASTROINTESTINAL: +Intermittent constipation over time period as described. No nausea, vomiting, or diarrhea. GENITOURINARY: +4 urinary episodes daily. No dysuria, or other change in urination. MUSCULOSKELETAL: No joint or muscle swelling or pain. No neck or back pain. SKIN: No rash NEUROLOGIC: No headache, vertigo, loss of consciousness, or change in strength/ sensation. ENDOCRINE: No increased thirst. No abnormal weight change HEMATOLOGIC/LYMPHATIC: No anemia, easy bleeding, or history of blood clots. ALLERGIC/IMMUNOLOGIC: No hives or skin allergy. *Physical Exam - Vital Signs Last Vital Signs Temp Pulse Resp BP Pulse Ox 97.8 F 63 16 112/52 L 99 06/24/19 10:12 06/24/19 10:12 06/24/19 10:12 06/24/19 10:12 06/24/19 10:12 - Physical Exam Comments: 06/24/19 10:42 GENERAL: Awake, alert, and fully oriented, in no acute distress HEAD: No signs of trauma, normocephalic, atraumatic EYES: +Mild sclera anicteric appreciated. PERRLA, EOMI, conjunctiva clear ENT: Auricles normal inspection, hearing grossly normal, nares patent, oropharynx clear without exudates. Moist mucosa NECK: Normal ROM, supple, no lymphadenopathy, JVD, or masses LUNGS: No distress, speaks full sentences, clear to auscultation bilaterally HEART: Regular rate and rhythm, normal S1 and S2, no murmurs, rubs or gallops, peripheral pulses normal and equal bilaterally. ABDOMEN: +Generalized fullness appreciated. Soft, nontender, normoactive bowel sounds. No guarding, no rebound. No masses EXTREMITIES: Normal inspection, Normal range of motion, no edema. No clubbing or cyanosis. NEUROLOGICAL: Cranial nerves II through XII grossly intact. Normal speech, normal gait, no focal sensorimotor deficits SKIN: Warm, Dry, normal turgor, no rashes or lesions noted. ED Treatment Course - LABORATORY CBC & Chemistry Diagram: 06/24/19 11:00 06/24/19 13:04 Medical Decision Making - Medical Decision Making 06/24/19 13:17 Ms. Perez is a 63 yo female w/ pmh as described who presents for evaluation of weakness and constipation c/w dehydration vs. alcohol withdrawal, vs. alcoholic cirrhosis vs. other acute process. Patient will be evaluated for etiology of symptoms with labs as below, EKG, CXR. 06/24/19 13:58 Patient noted to be thrombocytopenic, hypokalemic, with elevated liver enzymes, hypomagnesium and concern for UTI. Patient will be admitted over concern for cirrhotic decompensation and further inpatient evaluation. Also, patient repleted with magnesium, potassium, and given ceftriaxone for UTI treatment. EKG normal sinus rhythm. 06/24/19 14:58 Patient admitted to hospitalist team. Laboratory Results - last 24 hr 06/24/19 06/24/19 06/24/19 11:00 11:00 11:00 WBC 9.8 RBC 3.10 L Hgb 11.1 Hct 32.6 MCV 105.1 H MCH 35.9 H MCHC 34.1 RDW 15.4 Plt Count 83 L D MPV 8.9 Absolute Neuts (auto) 6.2 Neutrophils % 63.5 Lymphocytes % 25.1 Monocytes % 7.0 Eosinophils % 3.9 Basophils % 0.5 Nucleated RBC % 0 Platelet Estimate Decreased Macrocytosis 2+ PT with INR 14.10 H INR 1.19 H PTT (Actin FS) 42.6 H Sodium Potassium Chloride Carbon Dioxide Anion Gap BUN Creatinine Est GFR (CKD-EPI)AfAm Est GFR (CKD-EPI)NonAf Random Glucose Calcium Magnesium Total Bilirubin AST ALT Alkaline Phosphatase Ammonia Creatine Kinase Troponin I Total Protein Albumin Lipase Urine Color Urine Appearance Urine pH Ur Specific [place] Urine Protein Urine Glucose (UA) Urine Ketones Urine Blood Urine Nitrite Urine Bilirubin Urine Urobilinogen Ur Leukocyte Esterase Urine WBC (Auto) Urine RBC (Auto) Urine Casts (Auto) U Epithel Cells (Auto) Urine Bacteria (Auto) Blood Type O POSITIVE Antibody Screen Negative 06/24/19 06/24/19 06/24/19 11:00 11:30 12:00 WBC RBC Hgb Hct MCV MCH MCHC RDW Plt Count MPV Absolute Neuts (auto) Neutrophils % Lymphocytes % Monocytes % Eosinophils % Basophils % Nucleated RBC % Platelet Estimate Macrocytosis PT with INR INR PTT (Actin FS) Sodium 134 L Potassium Chloride 91 L Carbon Dioxide 28 Anion Gap 15 BUN 10.4 Creatinine 0.7 Est GFR (CKD-EPI)AfAm 106.87 Est GFR (CKD-EPI)NonAf 92.21 Random Glucose 69 L Calcium 8.1 L Magnesium 1.3 L Total Bilirubin 4.1 H AST 164 H ALT 29 Alkaline Phosphatase 492 H Ammonia 99.30 H Creatine Kinase Troponin I 0.00 Total Protein 8.6 H Albumin 3.6 Lipase 54 L Urine Color Dk yellow Urine Appearance Clear Urine pH 6.0 Ur Specific [place] 1.023 Urine Protein 2+ H Urine Glucose (UA) Negative Urine Ketones 4+ H Urine Blood Trace Urine Nitrite Positive H Urine Bilirubin 2+ H Urine Urobilinogen 4.0 e.u/dl H Ur Leukocyte Esterase Trace Urine WBC (Auto) 5 Urine RBC (Auto) 4 Urine Casts (Auto) 8 U Epithel Cells (Auto) 2.2 Urine Bacteria (Auto) 5730.6 Blood Type Antibody Screen 06/24/19 13:04 WBC RBC Hgb Hct MCV MCH MCHC RDW Plt Count MPV Absolute Neuts (auto) Neutrophils % Lymphocytes % Monocytes % Eosinophils % Basophils % Nucleated RBC % Platelet Estimate Macrocytosis PT with INR INR PTT (Actin FS) Sodium Potassium 3.3 L Chloride Carbon Dioxide Anion Gap BUN Creatinine Est GFR (CKD-EPI)AfAm Est GFR (CKD-EPI)NonAf Random Glucose Calcium Magnesium Total Bilirubin AST ALT Alkaline Phosphatase Ammonia Creatine Kinase 61 Troponin I < 0.02 Total Protein Albumin Lipase Urine Color Urine Appearance Urine pH Ur Specific [place] Urine Protein Urine Glucose (UA) Urine Ketones Urine Blood Urine Nitrite Urine Bilirubin Urine Urobilinogen Ur Leukocyte Esterase Urine WBC (Auto) Urine RBC (Auto) Urine Casts (Auto) U Epithel Cells (Auto) Urine Bacteria (Auto) Blood Type Antibody Screen Discharge - Discharge Information Problems reviewed: Yes Clinical Impression/Diagnosis: Hyperammonemia, Thrombocytopenia, Alcohol abuse Cirrhosis Qualifiers: Hepatic cirrhosis type: unspecified hepatic cirrhosis Ascites presence: without ascites Qualified Code(s): K74.60 - Unspecified cirrhosis of liver - Admission Yes - Follow up/Referral - Patient Discharge Instructions - Post Discharge Activity
[2019-06-24 11:58] LABS: BASO % 0.5 % (0-2.0); EOS % 3.9 % (0-4.5); HEMATOCRIT 32.6 % (32.4-45.2); HEMOGLOBIN 11.1 GM/dL (10.7-15.3); LYMPH % 25.1 % (8-40); MCH 35.9 pg (25.7-33.7); MCHC 34.1 g/dl (32.0-36.0); MEAN CELL VOLUME 105.1 fl (80-96); MEAN PLT VOLUME 8.9 fl (7.5-11.1); NEUT % 63.5 % (42.8-82.8); PLATELET COUNT 83 K/MM3 (134-434); RDW 15.4 % (11.6-15.6); WHITE BLOOD COUNT 9.8 K/mm3 (4.0-10.0)
--- NOTE | 2019-06-24 12:06 | PDOC ---
Documentation entered by Maxine Flores SCRIBE, acting as scribe for Saúl Lei MD. Saúl Lei MD: This documentation has been prepared by the Mark knapp Adrianna, SCRIBE, under my direction and personally reviewed by me in its entirety. I confirm that the documentation accurately reflects all work, treatment, procedures, and medical decision making performed by me. Attending Attestation - Resident Resident Name: Jim Soliman - ED Attending Attestation I have performed the following: I have examined & evaluated the patient, The case was reviewed & discussed with the resident, I agree w/resident's findings & plan, Exceptions are as noted - HPI HPI: The patient is a 63 year old female, with a significant PMH of EtOH abuse, alcoholic cirrhosis, recurrent UTI, hypokalemia, HLD, borderline DM, portal hypertensive gastropathy, and cholelithiasis, who presents to the ED for evaluation of generalized weakness for 3 weeks. Patient endorses generalized weakness and fatigue, with associated loss of appetite and constipation. Her LBM was today, and she notes she was only able to pass two small stools with hard straining. After passing her bowels today, she reports sudden onset lightheadedness while walking, almost fell and passed out but her caught her. Denies syncope or LOC. This prompted her to come to the ED for further evaluation. Denies fever, chills, headache, focal weaknes/numbness, chest pain, SOB, abd pain, nausea, vomit, diarrhea, dysuria, hematuria. Allergies: NKA, NKDA Surgical History: hysterectomy Social History: drinks 8 shots of vodka daily. Denies tobacco, illicit drug use PCP: Dr. Skinner GI: Dr. Mccarty - Physicial Exam PE: GENERAL: Awake, alert, and fully oriented, in no acute distress HEAD: No signs of trauma EYES: PERRLA, EOMI, +scleral icterus ENT: Oropharynx clear without exudates. Moist mucosa NECK: Normal ROM, supple, no lymphadenopathy, JVD, or masses LUNGS: Breath sounds equal, clear to auscultation bilaterally. No wheezes, and no crackles HEART: Regular rate and rhythm, normal S1 and S2, no murmurs, rubs or gallops ABDOMEN: +Mild distention, dullness to percussion, nontender, normoactive bowel sounds. No guarding, no rebound. No masses EXTREMITIES: Normal range of motion, no edema. No cords, erythema, or tenderness BACK: No midline spinal tenderness in cervical/thoracic/lumbar region NEUROLOGICAL: Normal speech, cranial nerves intact, equal strength and sensation bilaterally SKIN: Warm, Dry, normal turgor, no rashes or lesions noted. - Medical Decision Making 06/24/19 13:13 63-year-old female with a history of alcohol abuse, currently takes 8 shots of vodka per day presents the emergency department with 3 weeks of weakness, constipation, and presyncope today. Exam consistent with acute decompensated liver failure, likely in the setting of alcohol abuse. Labs with hyperbilirubinemia to 4, abnormal coags, elevated alk phos and ammonia levels, consistent with the latter. Plan for admission given liver failure, weakness Heart Score/ECG Review #1 06/24/19 12:03 Twelve-lead EKG was performed and reviewed by me. Normal sinus rhythm, rate 60. Normal axis. Wavy baseline, but no gross ST elevations. Isolated T wave inversion in lead III. ED Treatment Course - LABORATORY CBC & Chemistry Diagram: 06/24/19 11:00 06/24/19 13:04 - ADDITIONAL ORDERS Additional order review: Laboratory Results 06/24/19 06/24/19 06/24/19 11:30 11:00 11:00 PT with INR 14.10 H INR 1.19 H PTT (Actin FS) 42.6 H Sodium 134 L Potassium Chloride 91 L Carbon Dioxide 28 Anion Gap 15 BUN 10.4 Creatinine 0.7 Est GFR (CKD-EPI)AfAm 106.87 Est GFR (CKD-EPI)NonAf 92.21 Random Glucose 69 L Calcium 8.1 L Magnesium 1.3 L Total Bilirubin 4.1 H AST 164 H ALT 29 Alkaline Phosphatase 492 H Ammonia 99.30 H Troponin I 0.00 Total Protein 8.6 H Albumin 3.6 Lipase 54 L 06/24/19 11:00 RBC 3.10 L MCV 105.1 H MCHC 34.1 RDW 15.4 MPV 8.9 Neutrophils % 63.5 Lymphocytes % 25.1 Monocytes % 7.0 Eosinophils % 3.9 Basophils % 0.5 - RADIOLOGY Radiograph Interpretation: EXAM#: TYPE/EXAM: RESULT: [id number] RAD/CHEST X-RAY PORTABLE* Chest: Weakness Impression: No acute chest pathology. Slightly prominent left hilum. Reported By: Delano Overton MD 06/24/19 11:36
[2019-06-24 12:14] LABS: INR 1.19 (0.83-1.09); PROTHROMBIN TIME (PATIENT) 14.1 SEC (9.7-13.0)
[2019-06-24 12:15] LABS: ACTIVATED PTT 42.6 SECONDS (25.2-36.5)
[2019-06-24] MEDS ORDERED: chlordiazePOXIDE HCL 25 MG CAPSULE PO ONE ×3 (12:24→14:29)
[2019-06-24 12:40] LABS: ALBUMIN 3.6 g/dl (3.4-5.0); BILIRUBIN,TOTAL 4.1 mg/dL (0.2-1); BLOOD UREA NITROGEN 10.4 mg/dL (7-18); CALCIUM 8.1 mg/dL (8.5-10.1); CREATININE 0.7 mg/dL (0.55-1.3); MAGNESIUM 1.3 mg/dL (1.8-2.4); TOT PROT 8.6 g/dl (6.4-8.2)
[2019-06-24 12:44] LABS: EPI CELLS 2.2 /HPF (0-5/HPF); HYALINE CASTS 8 /lpf (0-8); URINE APPEARANCE CLEAR; URINE BACTERIA 5730.6 /hpf (NEGATIVE); URINE BILIRUBIN 2+ (NEGATIVE); URINE COLOR DK YELLOW; URINE GLUCOSE (UA) NEGATIVE (NEGATIVE); URINE KETONE 4+ (NEGATIVE); URINE LEUK ESTERASE TRACE (NEGATIVE); URINE NITRITE POSITIVE (NEGATIVE); URINE PROTEIN 2+ (NEGATIVE); URINE RBC 4 /hpf (0-4); URINE UROBILINOGEN 4.0 E.U/dl mg/dL (0.2-1.0); URINE WBC 5 /hpf (0-5)
[2019-06-24 12:55] LABS: MACROCYTOSIS 2+; PLATELET ESTIMATE DECREASED
[2019-06-24] MEDS ORDERED: chlordiazePOXIDE HCL 25 MG CAPSULE ONE ×2 (12:59→15:17)
[2019-06-24] MEDS ORDERED: LACTULOSE 20 GM/30 ML UDC (FOR ORAL USE ONLY) PO ONE (13:18)
[2019-06-24] MEDS ORDERED: SODIUM CHLORIDE 1,000 ML IV STA (13:38)
[2019-06-24] MEDS ORDERED: MAGNESIUM SULF 50% (8.12 MEQ/2 ML-1 GM VIAL) IVPB ONE ×2 (13:38→13:50)
[2019-06-24] MEDS ORDERED: CEFTRIAXONE 1,000 MG in DEXTROSE 5%-WATER - 50 ML IVPB ONE (13:39)
[2019-06-24 13:46] LABS: POTASSIUM 3.3 mmol/L (3.5-5.1)
[2019-06-24] MEDS ORDERED: POTASSIUM CHLORIDE TABS 20 MEQ TABLET.ER (FP) PO ONE ×2 (13:50→15:19)
[2019-06-24] MEDS ORDERED: LACTULOSE 20 GM/30 ML UDC (FOR ORAL USE ONLY) ONE (15:17)
[2019-06-24] MEDS ORDERED: CEFTRIAXONE 1 GM/50 ML BAG ONE (15:18)
[2019-06-24] MEDS ORDERED: MAGNESIUM 1GM/D5W - 1 GM/100 ML IVPB IVPB ONE ×2 (15:18→16:15)
[2019-06-24] MEDS ORDERED: POTASSIUM CHLORIDE ORAL LIQUID 20 MEQ/15 ML ONE (15:38)
--- NOTE | 2019-06-24 15:52 | HP ---
CHIEF COMPLAINT:Cannot drink anymore and weakness PCP:She does not remember her physician's name HISTORY OF PRESENT ILLNESS: Ms. Perez is a 63 yo female w/ pmh of cirrhosis 2/2 to alcohol abuse ( continues to drink 4 shots of vodka/day since February), HLD, pre-DM, and portal hypertensive gastropathy (w/o varices) who presents for evaluation of 3 week history of loss of appetite w/ generalized fatigue and constipation. Presents today as she felt light-headed after a bowel movement which required significant straining. Patient reports this occurred at approximately 0830 and resolved quickly with sitting. also reports patient's eyes look mildly yellow which is new within the last day. Patient further endorses increased urinary frequency w/ 4 episodes daily. Denies other complaints at this time. The patient denies chest pain, shortness of breath, and headache. Denies fever, chills, nausea, vomit, diarrhea and constipation. Denies dysuria, urgency and hematuria. She said that she does not want to go to rehabilitation after this admission because she has stopped alcohol in the past herself and she does not want to waste time and admissions to the rehabilitation Home medications She takes clonazepam 1 mg at bedtime pantoprazole 40 mg once a day folic acid 1 mg once a day magnesium oxide 400 mg once a day Corgard 40 mg once a day thiamine 100 mg once a day calcium citrate with vitamin D she did 1 pill a day and also multivitamin pill once a day she says she take pravastatin in the home which I would not give her in the hospital because she has high liver enzymes ER course was notable for: (1) (2) (3)None Recent Travel:No history of travel in the [place] or abroad PAST MEDICAL HISTORY:History of anxiety hypertension hyperlipidemia chronic alcohol use hepatitis history of liver cirrhosis and constipation PAST SURGICAL HISTORY:She does not remember Social History: Smoking:She does not smoke Alcohol:heavy alcohol Drugs: none Allergies No Known Allergies Allergy (Verified 06/24/19 10:15) HOME MEDICATIONS: Home Medications Medication Instructions Recorded Clonazepam 1 mg PO HS PRN 07/20/18 Pantoprazole Sodium 40 mg PO DAILY 07/20/18 Folic Acid - 1 mg PO DAILY #30 tablet 07/23/18 Magnesium Oxide [Mag-Ox -] 400 mg PO DAILY #30 tablet 12/15/18 Nadolol [Corgard -] 40 mg PO DAILY #30 tablet 07/23/18 Thiamine HCl [Vitamin B1 -] 100 mg PO DAILY #30 tablet 07/23/18 Calcium Citrate/Vitamin D3 1 each PO DAILY 10/04/18 [Citracal-Vit D 200 mg-250 Tab] Multivitamin [One-Daily 1 each PO DAILY 10/04/18 Multi-Vitamin] Pravastatin Sodium 20 mg PO DAILY 10/04/18 REVIEW OF SYSTEMS CONSTITUTIONAL: Absent: fever, chills, diaphoresis, generalized weakness, malaise, loss of appetite, weight change HEENT: Absent: rhinorrhea, nasal congestion, throat pain, throat swelling, difficulty swallowing, mouth swelling, ear pain, eye pain, visual changes CARDIOVASCULAR: Absent: chest pain, syncope, palpitations, irregular heart rate, lightheadedness , peripheral edema RESPIRATORY: Absent: cough, shortness of breath, dyspnea with exertion, orthopnea, wheezing, stridor, hemoptysis GASTROINTESTINAL: Absent: abdominal pain, abdominal distension, nausea, vomiting, diarrhea, constipation, melena, hematochezia GENITOURINARY: Absent: dysuria, frequency, urgency, hesitancy, hematuria, flank pain, genital pain MUSCULOSKELETAL: Absent: myalgia, arthralgia, joint swelling, back pain, neck pain SKIN: Absent: rash, itching, pallor HEMATOLOGIC/IMMUNOLOGIC: Absent: easy bleeding, easy bruising, lymphadenopathy, frequent infections ENDOCRINE: Absent: unexplained weight gain, unexplained weight loss, heat intolerance, cold intolerance NEUROLOGIC: Absent: headache, focal weakness or paresthesias, dizziness, unsteady gait, seizure, mental status changes, bladder or bowel incontinence PSYCHIATRIC: Absent: anxiety, depression, suicidal or homicidal ideation, hallucinations. PHYSICAL EXAMINATION Vital Signs - 24 hr 06/24/19 10:12 Temperature 97.8 F Pulse Rate 63 Respiratory 16 Rate Blood Pressure 112/52 L O2 Sat by Pulse 99 Oximetry (%) GENERAL: Awake, alert, and fully oriented, in no acute distress. HEAD: Normal with no signs of trauma. EYES: Pupils equal, round and reactive to light, extraocular movements intact, sclera anicteric, conjunctiva clear. No lid lag. EARS, NOSE, THROAT: Ears normal, nares patent, oropharynx clear without exudates. Moist mucous membranes. NECK: Normal range of motion, supple without lymphadenopathy, JVD, or masses. LUNGS: Breath sounds equal, clear to auscultation bilaterally. No wheezes, and no crackles. No accessory muscle use. HEART: Regular rate and rhythm, normal S1 and S2 without murmur, rub or gallop. ABDOMEN: Soft, nontender, not distended, normoactive bowel sounds, no guarding, no rebound, no masses. No hepatomegaly or splenomegaly. MUSCULOSKELETAL: Normal range of motion at all joints. No bony deformities or tenderness. No CVA tenderness. UPPER EXTREMITIES: 2+ pulses, warm, well-perfused. No cyanosis. No clubbing. No peripheral edema. LOWER EXTREMITIES: 2+ pulses, warm, well-perfused. No calf tenderness. No peripheral edema. NEUROLOGICAL: Cranial nerves II-XII intact. Normal speech. Normal gait. PSYCHIATRIC: Cooperative. Good eye contact. Appropriate mood and affect. SKIN: Warm, dry, normal turgor, no rashes or lesions noted, normal capillary refill. Laboratory Results - last 24 hr 06/24/19 06/24/19 06/24/19 11:00 11:00 11:00 WBC 9.8 RBC 3.10 L Hgb 11.1 Hct 32.6 MCV 105.1 H MCH 35.9 H MCHC 34.1 RDW 15.4 Plt Count 83 L D MPV 8.9 Absolute Neuts (auto) 6.2 Neutrophils % 63.5 Lymphocytes % 25.1 Monocytes % 7.0 Eosinophils % 3.9 Basophils % 0.5 Nucleated RBC % 0 Platelet Estimate Decreased Macrocytosis 2+ PT with INR 14.10 H INR 1.19 H PTT (Actin FS) 42.6 H Sodium Potassium Chloride Carbon Dioxide Anion Gap BUN Creatinine Est GFR (CKD-EPI)AfAm Est GFR (CKD-EPI)NonAf Random Glucose Calcium Magnesium Total Bilirubin AST ALT Alkaline Phosphatase Ammonia Creatine Kinase Troponin I Total Protein Albumin Lipase Urine Color Urine Appearance Urine pH Ur Specific [place] Urine Protein Urine Glucose (UA) Urine Ketones Urine Blood Urine Nitrite Urine Bilirubin Urine Urobilinogen Ur Leukocyte Esterase Urine WBC (Auto) Urine RBC (Auto) Urine Casts (Auto) U Epithel Cells (Auto) Urine Bacteria (Auto) Blood Type O POSITIVE Antibody Screen Negative 06/24/19 06/24/19 06/24/19 11:00 11:30 12:00 WBC RBC Hgb Hct MCV MCH MCHC RDW Plt Count MPV Absolute Neuts (auto) Neutrophils % Lymphocytes % Monocytes % Eosinophils % Basophils % Nucleated RBC % Platelet Estimate Macrocytosis PT with INR INR PTT (Actin FS) Sodium 134 L Potassium Chloride 91 L Carbon Dioxide 28 Anion Gap 15 BUN 10.4 Creatinine 0.7 Est GFR (CKD-EPI)AfAm 106.87 Est GFR (CKD-EPI)NonAf 92.21 Random Glucose 69 L Calcium 8.1 L Magnesium 1.3 L Total Bilirubin 4.1 H AST 164 H ALT 29 Alkaline Phosphatase 492 H Ammonia 99.30 H Creatine Kinase Troponin I 0.00 Total Protein 8.6 H Albumin 3.6 Lipase 54 L Urine Color Dk yellow Urine Appearance Clear Urine pH 6.0 Ur Specific [place] 1.023 Urine Protein 2+ H Urine Glucose (UA) Negative Urine Ketones 4+ H Urine Blood Trace Urine Nitrite Positive H Urine Bilirubin 2+ H Urine Urobilinogen 4.0 e.u/dl H Ur Leukocyte Esterase Trace Urine WBC (Auto) 5 Urine RBC (Auto) 4 Urine Casts (Auto) 8 U Epithel Cells (Auto) 2.2 Urine Bacteria (Auto) 5730.6 Blood Type Antibody Screen 06/24/19 13:04 WBC RBC Hgb Hct MCV MCH MCHC RDW Plt Count MPV Absolute Neuts (auto) Neutrophils % Lymphocytes % Monocytes % Eosinophils % Basophils % Nucleated RBC % Platelet Estimate Macrocytosis PT with INR INR PTT (Actin FS) Sodium Potassium 3.3 L Chloride Carbon Dioxide Anion Gap BUN Creatinine Est GFR (CKD-EPI)AfAm Est GFR (CKD-EPI)NonAf Random Glucose Calcium Magnesium Total Bilirubin AST ALT Alkaline Phosphatase Ammonia Creatine Kinase 61 Troponin I < 0.02 Total Protein Albumin Lipase Urine Color Urine Appearance Urine pH Ur Specific [place] Urine Protein Urine Glucose (UA) Urine Ketones Urine Blood Urine Nitrite Urine Bilirubin Urine Urobilinogen Ur Leukocyte Esterase Urine WBC (Auto) Urine RBC (Auto) Urine Casts (Auto) U Epithel Cells (Auto) Urine Bacteria (Auto) Blood Type Antibody Screen ASSESSMENT/PLAN: Ms. Perez is a 63 yo female w/ pmh as described who presents for evaluation of weakness and constipation c/w dehydration vs. alcohol withdrawal, vs. alcoholic cirrhosis vs. other acute process. Will start her on alcohol protocol IV fluids Librium thiamine folic acid magnesium repeat labs in the morning for follow-up on hepatitis repeat magnesium level in the morning She has high ammonia level will treat that She has elevated liver function test and also elevated coagulation profile so will not give her any injectable form of DVT prophylaxis but will give her STEVEN stockings she is also very ambulatory Visit type - Emergency Visit Emergency Visit: Yes ED Registration Date: 06/24/19 Care time: The patient presented to the Emergency Department on the above date and was hospitalized for further evaluation of their emergent condition. - New Patient This patient is new to me today: Yes Date on this admission: 06/24/19 - Critical Care Critical Care patient: No
[2019-06-24] MEDS: chlordiazePOXIDE HCL 25 MG CAPSULE PO SCH ×2 (16:28→22:32)
[2019-06-24 18:24] VITALS: BMI 22.6
[2019-06-25] MEDS: chlordiazePOXIDE HCL 25 MG CAPSULE PO SCH ×4 (04:54→21:51)
[2019-06-25 08:21] LABS: ALBUMIN 3.2 g/dl (3.4-5.0); BILIRUBIN,TOTAL 2.6 mg/dL (0.2-1); BLOOD UREA NITROGEN 6.9 mg/dL (7-18); CALCIUM 7.6 mg/dL (8.5-10.1); CREATININE 0.7 mg/dL (0.55-1.3); POTASSIUM 3.1 mmol/L (3.5-5.1); TOT PROT 6.6 g/dl (6.4-8.2)
[2019-06-25] MEDS ORDERED: FOLIC ACID 1 MG TABLET (FP) PO SCH (10:00)
[2019-06-25] MEDS: NADOLOL 20 MG TABLET (FP) PO SCH (10:42)
[2019-06-25] MEDS: PANTOPRAZOLE 40 MG TABLET (FP) PO SCH (10:43)
[2019-06-25] MEDS: FOLIC ACID 1 MG TABLET (FP) PO SCH (10:43)
[2019-06-25] MEDS: MAGNESIUM OXIDE 400 MG TABLET (FP) PO SCH (10:43)
[2019-06-25] MEDS: THIAMINE HCL 100 MG TABLET (FP) PO SCH (10:43)
[2019-06-25] MEDS: MULTIVITAMINS (DAILY MVI) TABLET (FP) PO SCH (10:43)
[2019-06-25] MEDS ORDERED: POTASSIUM CHLORIDE ORAL LIQUID 20 MEQ/15 ML PO ONE (11:35)
--- NOTE | 2019-06-25 11:39 | PN ---
Progress Note (short form) - Note Progress Note: Today she is comfortable less shaky good appetite she ate well no nausea vomiting diarrhea. She had no fever and chills she slept well last night. No sign of alcohol withdrawal at this time Her blood test showed she has a low potassium today and her liver enzymes are coming down. Vital Signs Period Temp Pulse Resp BP Sys/Lau Pulse Ox Last 24 Hr 97.2 F-98.6 F 67-88 18-20 101-125/53-76 97-97 Physical examination Comfortable middle-aged woman HEENT mild yellow eyes Neck supple negative JVD Lungs bilateral clear. Abdomen soft nontender no liver enlargement. Neurologic she is alert awake oriented. Nonfocal no sign of any infection. CBC, BMP 06/24/19 11:00 06/25/19 07:40 Laboratory Results - last 24 hr 06/24/19 06/24/19 06/24/19 11:00 11:00 11:00 WBC 9.8 RBC 3.10 L Hgb 11.1 Hct 32.6 MCV 105.1 H MCH 35.9 H MCHC 34.1 RDW 15.4 Plt Count 83 L D MPV 8.9 Absolute Neuts (auto) 6.2 Neutrophils % 63.5 Lymphocytes % 25.1 Monocytes % 7.0 Eosinophils % 3.9 Basophils % 0.5 Nucleated RBC % 0 Platelet Estimate Decreased Macrocytosis 2+ PT with INR 14.10 H INR 1.19 H PTT (Actin FS) 42.6 H Sodium Potassium Chloride Carbon Dioxide Anion Gap BUN Creatinine Est GFR (CKD-EPI)AfAm Est GFR (CKD-EPI)NonAf Random Glucose Lactic Acid Calcium Magnesium Total Bilirubin AST ALT Alkaline Phosphatase Ammonia Creatine Kinase Troponin I Total Protein Albumin Lipase Urine Color Urine Appearance Urine pH Ur Specific [place] Urine Protein Urine Glucose (UA) Urine Ketones Urine Blood Urine Nitrite Urine Bilirubin Urine Urobilinogen Ur Leukocyte Esterase Urine WBC (Auto) Urine RBC (Auto) Urine Casts (Auto) U Epithel Cells (Auto) Urine Bacteria (Auto) Blood Type O POSITIVE Antibody Screen Negative 06/24/19 06/24/19 06/24/19 11:00 11:30 12:00 WBC RBC Hgb Hct MCV MCH MCHC RDW Plt Count MPV Absolute Neuts (auto) Neutrophils % Lymphocytes % Monocytes % Eosinophils % Basophils % Nucleated RBC % Platelet Estimate Macrocytosis PT with INR INR PTT (Actin FS) Sodium 134 L Potassium Chloride 91 L Carbon Dioxide 28 Anion Gap 15 BUN 10.4 Creatinine 0.7 Est GFR (CKD-EPI)AfAm 106.87 Est GFR (CKD-EPI)NonAf 92.21 Random Glucose 69 L Lactic Acid Calcium 8.1 L Magnesium 1.3 L Total Bilirubin 4.1 H AST 164 H ALT 29 Alkaline Phosphatase 492 H Ammonia 99.30 H Creatine Kinase Troponin I 0.00 Total Protein 8.6 H Albumin 3.6 Lipase 54 L Urine Color Dk yellow Urine Appearance Clear Urine pH 6.0 Ur Specific [place] 1.023 Urine Protein 2+ H Urine Glucose (UA) Negative Urine Ketones 4+ H Urine Blood Trace Urine Nitrite Positive H Urine Bilirubin 2+ H Urine Urobilinogen 4.0 e.u/dl H Ur Leukocyte Esterase Trace Urine WBC (Auto) 5 Urine RBC (Auto) 4 Urine Casts (Auto) 8 U Epithel Cells (Auto) 2.2 Urine Bacteria (Auto) 5730.6 Blood Type Antibody Screen 06/24/19 06/24/19 06/24/19 13:04 20:39 20:39 WBC RBC Hgb Hct MCV MCH MCHC RDW Plt Count MPV Absolute Neuts (auto) Neutrophils % Lymphocytes % Monocytes % Eosinophils % Basophils % Nucleated RBC % Platelet Estimate Macrocytosis PT with INR INR PTT (Actin FS) Sodium Potassium 3.3 L Chloride Carbon Dioxide Anion Gap BUN Creatinine Est GFR (CKD-EPI)AfAm Est GFR (CKD-EPI)NonAf Random Glucose Lactic Acid 1.2 Calcium Magnesium Total Bilirubin AST ALT Alkaline Phosphatase Ammonia Creatine Kinase 61 Troponin I < 0.02 Total Protein Albumin Lipase Urine Color Urine Appearance Urine pH Ur Specific [place] Urine Protein Urine Glucose (UA) Urine Ketones Urine Blood Urine Nitrite Urine Bilirubin Urine Urobilinogen Ur Leukocyte Esterase Urine WBC (Auto) Urine RBC (Auto) Urine Casts (Auto) U Epithel Cells (Auto) Urine Bacteria (Auto) Blood Type O POSITIVE Antibody Screen 06/25/19 07:40 WBC RBC Hgb Hct MCV MCH MCHC RDW Plt Count MPV Absolute Neuts (auto) Neutrophils % Lymphocytes % Monocytes % Eosinophils % Basophils % Nucleated RBC % Platelet Estimate Macrocytosis PT with INR INR PTT (Actin FS) Sodium 138 Potassium 3.1 L Chloride 95 L Carbon Dioxide 31 Anion Gap 12 BUN 6.9 L Creatinine 0.7 Est GFR (CKD-EPI)AfAm 106.87 Est GFR (CKD-EPI)NonAf 92.21 Random Glucose 90 Lactic Acid Calcium 7.6 L Magnesium Total Bilirubin 2.6 H AST 100 H ALT 21 Alkaline Phosphatase 445 H Ammonia Creatine Kinase Troponin I Total Protein 6.6 Assessment and plan Albumin 3.2 L Lipase Urine Color Urine Appearance Urine pH Ur Specific [place] Urine Protein Urine Glucose (UA) Urine Ketones Urine Blood Urine Nitrite Urine Bilirubin Urine Urobilinogen Ur Leukocyte Esterase Urine WBC (Auto) Urine RBC (Auto) Urine Casts (Auto) U Epithel Cells (Auto) Urine Bacteria (Auto) Blood Type Antibody Screen Assessment and plan This is a 63-year-old female with past medical history of alcohol abuse came to the ER with the alcohol withdrawal and dehydration liver cirrhosis and other things. She is improving well continue IV fluids Librium vitamin and folic acid and also will give her thiamine. Awaiting her ultrasound report of the abdomen. Advised patient to walk around in the hallway. Still discussed with her about going to rehabilitation but she does not want at this time. Hypokalemia will replace hypokalemia with potassium Hypocalcemia she is already on calcium carbonate. I did not give her lactulose yesterday because ammonia level is slightly high but she has no symptoms so we will repeat the ammonia level tomorrow if continues to high will treat with lactulose Visit type - Emergency Visit Emergency Visit: Yes ED Registration Date: 06/24/19 Care time: The patient presented to the Emergency Department on the above date and was hospitalized for further evaluation of their emergent condition. - New Patient This patient is new to me today: No - Critical Care Critical Care patient: No - Discharge Referral Referred to [facility] Med [facility] No
[2019-06-25] MEDS: CALCIUM 250MG/VIT-D 125 UNITS 1 COMBO TABLET PO SCH (12:21)
--- NOTE | 2019-06-25 17:07 | EKG ---
Test Reason : Blood Pressure : / mmHG Vent. Rate : 060 BPM Atrial Rate : 060 BPM P-R Int : 176 ms QRS Dur : 086 ms QT Int : 478 ms P-R-T Axes : 057 020 028 degrees QTc Int : 478 ms NORMAL SINUS RHYTHM NONSPECIFIC ST AND T WAVE ABNORMALITY PROLONGED QT ABNORMAL ECG WHEN COMPARED WITH ECG OF 19-JUL-2018 10:46, VENT. RATE HAS DECREASED BY 56 BPM CRITERIA FOR SEPTAL INFARCT ARE NO LONGER PRESENT NONSPECIFIC T WAVE ABNORMALITY, WORSE IN ANTEROLATERAL LEADS Confirmed by PONCE JONES MD ([id number]) on 06/25/2019 5:07:01 PM Referred By: Confirmed By:PONCE JONES MD
[2019-06-26] MEDS: chlordiazePOXIDE HCL 25 MG CAPSULE PO SCH ×2 (04:55→10:12)
[2019-06-26] MEDS ORDERED: PT OWN MED DRAWER 7, Y5N ONE (10:06)
[2019-06-26] MEDS: THIAMINE HCL 100 MG TABLET (FP) PO SCH (10:12)
[2019-06-26] MEDS: FOLIC ACID 1 MG TABLET (FP) PO SCH (10:12)
[2019-06-26] MEDS: MULTIVITAMINS (DAILY MVI) TABLET (FP) PO SCH (10:12)
[2019-06-26] MEDS: MAGNESIUM OXIDE 400 MG TABLET (FP) PO SCH (10:12)
[2019-06-26] MEDS: PANTOPRAZOLE 40 MG TABLET (FP) PO SCH (10:12)
[2019-06-26] MEDS: CALCIUM 250MG/VIT-D 125 UNITS 1 COMBO TABLET PO SCH (10:12)
[2019-06-26 11:31] LABS: ALBUMIN 3.4 g/dl (3.4-5.0); BILIRUBIN,TOTAL 2.2 mg/dL (0.2-1); BLOOD UREA NITROGEN 4.4 mg/dL (7-18); CALCIUM 8.4 mg/dL (8.5-10.1); CREATININE 0.7 mg/dL (0.55-1.3); POTASSIUM 3.5 mmol/L (3.5-5.1); TOT PROT 6.9 g/dl (6.4-8.2)
[2019-06-26] MEDS: NADOLOL 20 MG TABLET (FP) PO SCH (11:57)
--- NOTE | 2019-06-26 14:29 | DS ---
Physical Exam: SUBJECTIVE: Patient seen and examined at bedside. Resting comfortably, seen ambulating freely. States that she feels well. Does not feel tremulous. Feels ready to go home. OBJECTIVE: Vital Signs Period Temp Pulse Resp BP Sys/Lau Pulse Ox Last 24 Hr 98.3 F-98.7 F 70-80 18-18 93-121/57-66 96-98 PHYSICAL EXAM GENERAL: The patient is awake, alert, and fully oriented, in no acute distress. Ambulating in room HEAD: Normal with no signs of trauma. EYES: PERRL, extraocular movements intact, sclera icteric. ENT: Ears normal, nares patent, oropharynx clear without exudates, moist mucous membranes. NECK: Trachea midline, full range of motion, supple. LUNGS: Breath sounds equal, clear to auscultation bilaterally, no wheezes, no crackles, no accessory muscle use. HEART: Regular rate and rhythm, S1, S2 without murmur, rub or gallop. ABDOMEN: Soft, obese, nontender, nondistended, normoactive bowel sounds EXTREMITIES: 2+ pt pulses, warm, well-perfused, no edema. NEUROLOGICAL: Cranial nerves II through XII grossly intact. Normal speech, gait WNL. PSYCH: Normal mood, normal affect. SKIN: Warm, dry, normal turgor LABS Laboratory Results - last 24 hr 06/26/19 06/26/19 07:30 07:30 Sodium 139 Potassium 3.5 Chloride 98 Carbon Dioxide 34 H Anion Gap 6 L BUN 4.4 L Creatinine 0.7 Est GFR (CKD-EPI)AfAm 106.87 Est GFR (CKD-EPI)NonAf 92.21 Random Glucose 120 H Calcium 8.4 L Total Bilirubin 2.2 H AST 120 H ALT 25 Alkaline Phosphatase 474 H Ammonia 120.20 H Total Protein 6.9 Albumin 3.4 Additional labs 06/24/19 06/24/19 06/24/19 11:00 11:00 12:00 WBC 9.8 Hgb 11.1 Hct 32.6 MCV 105.1 H Plt Count 83 L D Sodium 134 L Potassium Chloride 91 L BUN Creatinine Calcium 8.1 L Magnesium 1.3 L AST 164 H ALT 29 Urine Bilirubin 2+ H Urine Urobilinogen 4.0 e.u/dl H Ur Leukocyte Esterase Trace Urine WBC (Auto) 5 Urine RBC (Auto) 4 Urine Casts (Auto) 8 U Epithel Cells (Auto) 2.2 Urine Bacteria (Auto) 5730.6 06/24/19 06/25/19 06/26/19 13:04 07:40 07:30 WBC Hgb Hct MCV Plt Count Sodium Potassium 3.3 L 3.1 L Chloride 95 L BUN 4.4 L Creatinine 0.7 Calcium 7.6 L 8.4 L Magnesium AST 100 H 120 H ALT 21 25 Urine Bilirubin Urine Urobilinogen Ur Leukocyte Esterase Urine WBC (Auto) Urine RBC (Auto) Urine Casts (Auto) U Epithel Cells (Auto) Urine Bacteria (Auto) 06/24/19 06/24/19 06/26/19 11:00 13:04 07:30 Ammonia 120.20 H Troponin I 0.00 < 0.02 Microbiology 06/24/19 12:00 Urine - Urine Clean Catch Urine Culture - Final Escherichia Coli Imaging 06/24/19: CXR: (-) without acute abnormality 06/24/19: Abd sono: multiple small gallstones layering posteriorly without sono evidence of acute cholecystitis. normal size liver with increased echotexture compatible with fatty infiltration vs hepatocellular dz. 06/26/19: CXR (-) without acute abnormality EKG: vent rate 60bpm, pr 176ms, qtc 478ms HOSPITAL COURSE: Date of Admission:06/24/19 Date of Discharge: 06/26/19 Admitting diagnosis: acute alcohol withdrawal 63 y/o female w/ pmh of cirrhosis 2/2 to alcohol abuse (continues to drink 4 shots of vodka/day since February), HLD, pre-DM, and portal hypertensive gastropathy (w/o varices) who presented for evaluation of 3 week history of loss of appetite w/ generalized fatigue and constipation. Pt felt light-headed after a bowel movement which required significant straining. also reports patient's eyes look mildly yellow which is new within the last day. Patient further endorses increased urinary frequency w/ 4 episodes daily. Denies other complaints at this time. Pt was admitted for acute alcohol withdrawal and managed with Librium protocol. She was also maintained on folic acid, thiamine, and her home medications. She underwent abdominal sono which showed multiple small gallstones layering posteriorly without sonographic evidence of acute cholecystitis as well as increased liver echotexture. On discharge, she is without asterixis, tremors and is feeling well. Seen ambulating with ease. She will go home on lactulose 20gm BID, as with elevated ammonia though asymptomatic. She will follow with her PCP and Dr. Bobo, her GI and cont her home meds. We are also sending her on levaquin for her UTI (7 day course). She is to have a repeat EKG with her primary care doctor. Discussed all of the above with patient, expressed verbal understanding. All questions answered. During hospital stay, casualty underwriter also discussed alcohol cessation. Did not want to attend [facility], though counseled on importance. Pt states that she wants to "try to quit on her own since she has before." Pt is also not interested in alcoholics anonymous, but did discuss with patient. Minutes to complete discharge: 43 Discharge Summary Problems reviewed: Yes Reason For Visit: HEPATIC CIRRHOSIS;THROMBOCYTOPENIA;HYPERAMMONEMIA Current Active Problems Hyperammonemia (Acute) Thrombocytopenia (Acute) Alcohol abuse (Chronic) Cirrhosis (Chronic) Condition: Improved - Instructions Diet, Activity, Other Instructions: You were in the hospital for loss of appetite, fatigue and alcohol withdrawal. You were managed with medication (Librium) and improved. You had an abdominal ultrasound done which showed that you had gallstones, but no inflammation of your gallbladder. You are being sent home. Medications 1)While you were in the hospital, your ammonia level was high. You did not have symptoms. But to help resolve this, you are being placed on lactulose 20gm twice a day. ( this will help you with constipation) 2) You are being sent home also on an antibiotic for a urinary tract infection ( UTI) We have prescribed levaquin 500mg (1 pill)x please take for 7 days -You may continue your other home medications Care -While you were here, we discussed the importance of cessation of alcohol. You did not want to go to [facility] however we discussed a plan for you to cut back on drinking. It is very important for your liver health, as well as overall well-being. Follow-up Please follow up with - -Your PCP in 3-5 days after your discharge. You may need to have your EKG repeated on your visit. -Dr. Bobo, your GI doctor - within 1 week If you develop chest pain, abdominal pain please go to the hospital. Referrals: Stephanie Bobo DO [Staff Physician] - 1 Week Patricia Skinner MD [Primary Care Provider] - 06/29/19 Disposition: HOME - Home Medications Comprehensive Discharge Medication List: Ambulatory Orders Clonazepam 1 mg PO HS PRN 07/20/18 Pantoprazole Sodium 40 mg PO DAILY 07/20/18 Magnesium Oxide [Mag-Ox -] 400 mg PO DAILY #30 tablet 07/23/18 Nadolol [Corgard -] 40 mg PO DAILY #30 tablet 07/23/18 Calcium Citrate/Vitamin D3 [Citracal-Vit D3 200 mg-250 Tab] 1 each PO DAILY Multivitamin [One-Daily Multi-Vitamin] 1 each PO DAILY 10/04/18 Pravastatin Sodium 20 mg PO DAILY 10/04/18 Folic Acid - 1 mg PO DAILY tablet 06/26/19 Lactulose (Oral Use) [Cephulac -] 20 gm PO BID #1 bottle 06/26/19 Levofloxacin [Levaquin] 500 mg PO DAILY #7 tablet 06/26/19 Thiamine HCl [Vitamin B1 -] 100 mg PO DAILY tablet 06/26/19 This patient is new to me today: Yes Date on this admission: 06/26/19 Emergency Visit: No Critical Care patient: No - Discharge Referral Referred to [facility] Med P.C.: No ATTENDING PHYSICIAN STATEMENT I saw and evaluated the patient. I reviewed the resident's note and discussed the case with the resident. I agree with the resident's findings and plan as documented. SUBJECTIVE: OBJECTIVE: ASSESSMENT AND PLAN:
[2019-06-26 15:17] VITALS: BP 119/75; PULSE 81; TEMP 97.7
== END 2019-06-26 15:40 | disposition home or self-care (01) | DRG 897 ==
LOC: JER 10:08 → JERBED 13:57 → J5S 19:06
PROVIDERS: ADMIT Internal Medicine; ATTEND Internal Medicine
PROC: HZ2ZZZZ Detoxification Services for Substance Abuse Treatment (ICD-10-PCS; principal; 2019-06-24)
DX: F10.230 Alcohol dependence with withdrawal, uncomplicated (principal); K76.6 Portal hypertension; E72.20 Disorder of urea cycle metabolism, unspecified; K70.30 Alcoholic cirrhosis of liver without ascites; E78.5 Hyperlipidemia, unspecified; R73.03 Prediabetes; K31.89 Other diseases of stomach and duodenum; K59.09 Other constipation; D69.6 Thrombocytopenia, unspecified; E87.6 Hypokalemia; F41.9 Anxiety disorder, unspecified; E83.51 Hypocalcemia; K80.20 Calculus of gallbladder without cholecystitis without obstruction
CPT/HCPCS: 36415; 71045-TC-FY; 76700-TC; 80053; 81003; 82140; 82550; 83605; 83690; 83735; 84132; 84484; 85025; 85610; 85730; 86850; 86900; 86901; 87086; 87186; 93005; 93010; 99284-25; J7030

== ENCOUNTER 2020-02-26 08:49 | Day surgery (SDC) | payer BC ==
--- NOTE | 2020-02-26 07:49 | HP ---
Admitting History and Physical - Admission Chief Complaint: left knee osteoarthritis x years History of Present Illness: 64 year old female presents today in regard to their left knee. Longstanding history of left knee osteoarthritis. Patient complains of pain, limited ROM, difficulty ambulating and difficulty completing activities of daily living. Patient has failed conservative treatment options including PO medications, injections, exercise programs and activity modification. Diagnostic testing reveals severe osteoarthritis of the left knee joint. At this point, patient would like to proceed with surgical intervention; a left total knee arthroplasty, MAKOplasty. History Source: Patient - Past Medical History Cardiovascular: Yes: HTN, Hyperlipdemia Gastrointestinal: Yes: GERD - Past Surgical History Additional Past Surgical History: See written history & physical. - Smoking History Smoking history: Never smoked Have you smoked in the past 12 months: No - Alcohol/Substance Use Hx Alcohol Use: Yes (OCCASIONALLY) Home Medications - Allergies Allergies/Adverse Reactions: Allergies Allergy/AdvReac Type Severity Reaction Status Date / Time NSAIDS (Non-Steroidal AdvReac Severe LIVER Verified 02/14/20 09:29 Anti-Inflamma DAMAGE;H/O CIRRHOSIS - Home Medications Home Medications: Ambulatory Orders Clonazepam 1 mg PO HS PRN 07/20/18 Pantoprazole Sodium 40 mg PO DAILY PRN 07/20/18 Magnesium Oxide [Mag-Ox -] 400 mg PO DAILY #30 tablet 07/23/18 Nadolol [Corgard -] 40 mg PO DAILY #30 tablet 07/23/18 Calcium Citrate/Vitamin D3 [Citracal-D3 200Mg-250 Unit Tab] 1 each PO DAILY 10/04/18 Multivitamin [One-Daily Multi-Vitamin] 1 each PO DAILY 10/04/18 Pravastatin Sodium 40 mg PO DAILY 10/04/18 Folic Acid - 1 mg PO DAILY tablet 06/26/19 Thiamine HCl [Vitamin B1 -] 100 mg PO DAILY tablet 06/26/19 Levothyroxine [Synthroid -] 25 mcg PO DAILY 02/14/20 Rifaximin [Xifaxan] 550 mg PO DAILY 02/14/20 Review of Systems - Review of Systems Musculoskeletal: reports: Crepitus (left knee), Decreased ROM (left knee), Joint Pain (left knee), Joint Swelling (left knee) Physical Examination Constitutional: Yes: Well Nourished, No Distress Eyes: Yes: Conjunctiva Clear HENT: Yes: Atraumatic Neck: Yes: Supple Cardiovascular: Yes: Regular Rate and Rhythm Respiratory: Yes: Regular Gastrointestinal: Yes: Soft ...Rectal Exam: Yes: Deferred Musculoskeletal: Yes: Joint Stiffness (left knee), Joint Swelling (left knee), Other (limited ROM left knee) Assessment/Plan 64 year old female presents today in regard to their left knee. Longstanding history of left knee osteoarthritis. Patient complains of pain, limited ROM, difficulty ambulating and difficulty completing activities of daily living. Patient has failed conservative treatment options including PO medications, injections, exercise programs and activity modification. Diagnostic testing reveals severe osteoarthritis of the left knee joint. At this point, patient would like to proceed with surgical intervention; a left total knee arthroplasty, MAKOplasty. Pros, cons, risks, benefits & alternatives of a left total knee arthroplasty, MAKOplasty was discussed with the patient at length. Patient confirms their understanding and consents to proceed with a left total knee arthroplasty - MAKOplasty.
[~2020-02-26 08:49] MED LIST: CEFAZOLIN 1 GM/D5W 1 GM/50 ML BAG IVPB ONE; CELECOXIB 200 MG CAPSULE PO ONE; GABAPENTIN 300 MG CAPSULE PO ONE; PANTOPRAZOLE 40 MG TABLET PO ONE; TRANEXAMIC ACID 1000 MG/10 ML VIAL IVPUSH ONE; oxyCODONE HCL 10 MG SUSTAINED ACTING TABLET PO ONE
[2020-02-26] MEDS ORDERED: ceFAZolin SODIUM 1 GM VIAL ONE ×2 (10:20→11:54)
[2020-02-26] MEDS ORDERED: DEXAMETHASONE SOD PHOSPHATE 4 MG/1 ML VIAL ONE (10:20)
[2020-02-26] MEDS ORDERED: ONDANSETRON 4 MG/2 ML VIAL ONE (10:20)
[2020-02-26] MEDS ORDERED: PROPOFOL 20 ML ONE ×2 (10:21)
[2020-02-26] MEDS ORDERED: TRANEXAMIC ACID 1000 MG/10 ML VIAL ONE ×2 (10:32→11:54)
[2020-02-26] MEDS ORDERED: BUPIVACAINE HCL/PF 0.5% (5MG/ML) 10 ML VIAL ONE (10:32)
[2020-02-26 10:33] VITALS: BMI 21.1
[2020-02-26] MEDS ORDERED: PANTOPRAZOLE 40 MG TABLET ONE (10:36)
[2020-02-26] MEDS ORDERED: oxyCODONE HCL 10 MG SUSTAINED ACTING TABLET ONE (10:36)
[2020-02-26] MEDS ORDERED: CELECOXIB 200 MG CAPSULE ONE (10:36)
[2020-02-26] MEDS ORDERED: GABAPENTIN 300 MG CAPSULE ONE (10:36)
[2020-02-26] MEDS ORDERED: CELECOXIB 200 MG CAPSULE PO ONE (10:50)
[2020-02-26] MEDS ORDERED: GABAPENTIN 300 MG CAPSULE PO ONE (10:55)
[2020-02-26] MEDS ORDERED: oxyCODONE HCL 10 MG SUSTAINED ACTING TABLET PO ONE (10:55)
[2020-02-26] MEDS ORDERED: PANTOPRAZOLE 40 MG TABLET PO ONE (11:00)
[2020-02-26] MEDS ORDERED: MIDAZOLAM HCL 2 MG/2 ML SINGLE DOSE VIAL ONE (11:15)
[2020-02-26] MEDS ORDERED: BUPIVACAINE LIPOSOME/PF (EXPAREL) 266 MG/20 ML VIAL ONE (11:16)
[2020-02-26] MEDS ORDERED: SODIUM CHLORIDE 0.9% P/F 10 ML VIAL IJ ONE (11:16)
[2020-02-26] MEDS ORDERED: VANCOMYCIN 1,000 MG VIAL (RESTRICTED TO ID ONLY) ONE (11:54)
[2020-02-26] MEDS ORDERED: ONDANSETRON 4 MG/2 ML VIAL IVPUSH PRN ×2 (11:56→16:35)
[2020-02-26] MEDS ORDERED: oxyCODONE HCL 5 MG TABLET PO PRN ×2 (11:56)
[2020-02-26] MEDS ORDERED: LACTATED RINGERS SOLUTION 1,000 ML IV SCH ×2 (12:00→16:45)
[2020-02-26] MEDS ORDERED: ePHEDrine SULFATE 50 MG/1 ML AMPULE ONE (12:44)
[2020-02-26] MEDS ORDERED: VANCOMYCIN 1,000 MG VIAL (RESTRICTED TO ID ONLY) IVPB ONE (14:50)
[2020-02-26] MEDS ORDERED: TRANEXAMIC ACID 1000 MG/10 ML VIAL IVPUSH ONE (15:04)
[2020-02-26] MEDS: ACETAMINOPHEN 1000 MG/100 ML VIAL (NON FORMULARY) IVPB ONE ×2 (15:30→15:40)
[2020-02-26] MEDS ORDERED: traMADol HCL 50 MG TABLET ONE (15:33)
[2020-02-26] MEDS ORDERED: ACETAMINOPHEN INJECTION 100 ML IVPB ONE (15:34)
--- NOTE | 2020-02-26 15:54 | SURG ---
Surgery Media Professional Note Media Professional: Don Lawton PA-C Date of Service: 02/26/20 Diagnosis: Left knee osteoarthritis Procedure: Left knee jerri assisted arthroplasty I was present for the entirety of the operative procedure. For further detail, please refer to operative report. Visit type - Case Type Case Type: Scheduled - Emergency Emergency Visit: No - New patient This patient is new to me today: Yes Date on this admission: 02/26/20 - Critical Care Critical Care patient: No
[2020-02-26] MEDS ORDERED: KETOROLAC TROMETHAMINE 30 MG/1 ML VIAL ONE (15:56)
[2020-02-26] MEDS: KETOROLAC TROMETHAMINE 30 MG/1 ML VIAL IVPUSH SCH ×2 (16:00→23:59)
[2020-02-26] MEDS ORDERED: clonazePAM 0.5 MG TABLET PO PRN (16:28)
[2020-02-26] MEDS ORDERED: MAGNESIUM HYDROX 2400MG/30ML ORAL SUSPENSION 30 ML CUP PO PRN (16:35)
[2020-02-26] MEDS ORDERED: MAG HYDROX/AL HYDROX/SIMETH 30 ML UNIT-DOSE CUP PO PRN (16:35)
[2020-02-26] MEDS: traMADol HCL 50 MG TABLET PO SCH ×2 (16:40→23:58)
--- NOTE | 2020-02-26 16:40 | OP ---
Operative Note - Note: Operative Date: 02/26/20 Pre-Operative Diagnosis: left knee OA Operation: left ANAY TKA Post-Operative Diagnosis: Same as Pre-op Surgeon: Luisito Baca Education Liaison: Don Lawton Anesthesia: Spinal Estimated Blood Loss (mls): 150
[2020-02-26] MEDS: ACETAMINOPHEN 325 MG TABLET (FP) PO SCH (17:45)
[2020-02-26] MEDS ORDERED: CEFAZOLIN 2 GM in DEXTROSE 5%-WATER - 50 ML IVPB SCH (18:00)
[2020-02-26] MEDS: CEFAZOLIN 2 GM/D5W 2 GM/50 ML ML IVPB SCH (19:01)
[2020-02-26] MEDS: ATORVASTATIN CA 10 MG TABLET (FP) PO SCH (21:24)
[2020-02-26] MEDS: oxyCODONE HCL 10 MG SUSTAINED ACTING TABLET PO SCH (21:24)
[2020-02-26] MEDS: ASCORBIC ACID 500 MG TABLET (FP) PO SCH (21:26)
[2020-02-26] MEDS: GABAPENTIN 300 MG CAPSULE PO SCH (21:26)
[2020-02-26] MEDS: SENNOSIDES/DOCUSATE COMBO (SENNA PLUS) TABLET (UD) PO SCH (21:27)
[2020-02-26] MEDS: CELECOXIB 200 MG CAPSULE PO SCH (21:28)
[2020-02-27] MEDS ORDERED: DEXAMETHASONE SOD PHOSPHATE 10 MG/1 ML VIAL IVPB ONE
[2020-02-27] MEDS: ACETAMINOPHEN 325 MG TABLET (FP) PO SCH ×4 (00:01→18:44)
[2020-02-27] MEDS: KETOROLAC TROMETHAMINE 30 MG/1 ML VIAL IVPUSH SCH ×3 (00:01→10:45)
[2020-02-27] MEDS: CEFAZOLIN 2 GM/D5W 2 GM/50 ML ML IVPB SCH (02:01)
[2020-02-27] MEDS: traMADol HCL 50 MG TABLET PO SCH ×4 (05:47→22:57)
[2020-02-27] MEDS: LEVOTHYROXINE NA 25 MCG TABLET (FP) PO SCH (06:05)
[2020-02-27 07:37] LABS: HEMATOCRIT 32.9 % (32.4-45.2); HEMOGLOBIN 10.9 GM/dl (10.7-15.3); MCH 32.2 pg (25.7-33.7); MCHC 33.2 g/dl (32.0-36.0); MEAN CELL VOLUME 96.9 fl (80-96); MEAN PLT VOLUME 8.6 fl (7.5-11.1); PLATELET COUNT 117 K/MM3 (134-434); RDW 12.8 % (11.6-15.6); WHITE BLOOD COUNT 7.9 K/mm3 (4.0-10.8)
[2020-02-27 07:58] LABS: ALBUMIN 3.3 g/dl (3.4-5.0); BILIRUBIN,DIRECT 0.2 mg/dL (0.0-0.2); BILIRUBIN,TOTAL 0.7 mg/dl (0.2-1); CALCIUM 9.1 mg/dl (8.5-10); CREATININE 0.7 mg/dl (0.55-1.3); POTASSIUM 4.8 mmol/L (3.5-5.1)
[2020-02-27] MEDS ORDERED: ASPIRIN 325 MG TABLET PO SCH (08:00)
--- NOTE | 2020-02-27 08:00 | PN ---
Progress Note (short form) - Note Progress Note: 64M POD#1 L TKR under spinal/regional anesthesia. This am patient doing great. Pain 08/18. VSS. Pt. seen sitting in bed. No anesthesia related complications.
[2020-02-27] MEDS: CELECOXIB 200 MG CAPSULE PO SCH ×2 (10:00→21:30)
[2020-02-27] MEDS: oxyCODONE HCL 10 MG SUSTAINED ACTING TABLET PO SCH ×2 (10:00→21:30)
[2020-02-27] MEDS ORDERED: PRAVASTATIN SODIUM 40 MG PO SCH (10:00)
[2020-02-27] MEDS: FOLIC ACID 1 MG TABLET (FP) PO SCH (10:22)
[2020-02-27] MEDS: NADOLOL 20 MG TABLET (FP) PO SCH (10:22)
[2020-02-27] MEDS: SENNOSIDES/DOCUSATE COMBO (SENNA PLUS) TABLET (UD) PO SCH ×2 (10:22→21:28)
[2020-02-27] MEDS: GABAPENTIN 300 MG CAPSULE PO SCH ×2 (10:22→21:28)
[2020-02-27] MEDS: MAGNESIUM OXIDE 400 MG TABLET (FP) PO SCH (10:22)
[2020-02-27] MEDS: MULTIVITAMINS (DAILY MVI) TABLET (FP) PO SCH (10:23)
[2020-02-27] MEDS: THIAMINE HCL 100 MG TABLET (FP) PO SCH (10:23)
[2020-02-27] MEDS: PANTOPRAZOLE 40 MG TABLET PO SCH (10:23)
[2020-02-27] MEDS: RIFAXIMIN 550 MG TABLET (UD) PO SCH (10:23)
[2020-02-27] MEDS: ASCORBIC ACID 500 MG TABLET (FP) PO SCH ×2 (10:23→21:28)
[2020-02-27] MEDS: APIXABAN 2.5 MG TABLET PO SCH ×2 (13:00→21:28)
[2020-02-27] MEDS: INSULIN (NOVOLOG) ASPART 100 UNITS/ML 10ML VIAL SQ SCH ×2 (16:30→21:32)
--- NOTE | 2020-02-27 19:32 | DS ---
Physical Examination Vital Signs: Vital Signs Temperature 97.7 F 02/27/20 14:00 Pulse Rate 51 L 02/27/20 14:00 Respiratory Rate 16 02/27/20 14:00 Blood Pressure 108/41 L 02/27/20 14:00 O2 Sat by Pulse Oximetry (%) 100 02/27/20 14:00 Labs: CBC, BMP 02/27/20 07:04 02/27/20 07:04 Discharge Summary Problems reviewed: Yes Reason For Visit: LEFT KNEE OSTEOARTHRITIS Current Active Problems Unilateral primary osteoarthritis, left knee (Acute) Procedures: Principal: Left ANAY TKA Hospital Course: Admitted for elective surgery. Procedure performed without complications. Pt received postoperative antibiotic prophylaxis and DVT ppx. Ambulated with physical therapy. Stable for discharge home with outpatient followup. Condition: Stable - Instructions Diet, Activity, Other Instructions: Dr. Baca - Knee Replacement Instructions Keep the Aquacel dressing on until removed by Dr. Baca in the office - it is antibacterial and waterproof and you can shower with it on. Call the office for a follow-up appointment with Dr. Baca on WednesdayMarch 08 . [phone] Take ELIQUIS 2.5 mg twice daily for 35 days to prevent blood clots in your legs. Take one Pantoprazole 40mg daily for 6 weeks to protect against heartburn and ulcers. Take Cephalexin (antibiotic) 3x/day for 10 days to help prevent skin infection. Take a multivitamin, stool softener, and extra Vitamin C supplement daily. For pain: *Mild pain (1-3/10): Take 1 Tramadol tablet every 4 hours as needed. Moderate pain (4-6/10): Take 1 Tramadol tablet and 1 Oxycodone 5mg tablet every 4 hours as needed. Severe pain (7-10/10): Take 1 Tramadol tablet and 2 Oxycodone 5mg tablets every 4 hours as needed. Activity: You can put as much weight on the operative leg as you want. Right after you get home, there will be a physical therapist coming to your house to help you walk around and bend/straighten your knee. After your follow-up appointment, you will be sent for more intensive outpatient physical therapy which will include machines and equipment that the home ther apist cannot bring to your house. Always use a walker or cane for balance and to prevent falls. Expect to see swelling/bruising from the operative site all the way down to your toes. Wear the compression stocking on the operative side during the day to minimize how much swelling there is in your foot/ankle. Don't wear the stocking at night. You don't have to wear a stocking on the other side. Disposition: [facility]NS/HOME HEALTH CARE - Home Medications Comprehensive Discharge Medication List: Ambulatory Orders Clonazepam 1 mg PO HS PRN 07/20/18 Magnesium Oxide [Mag-Ox -] 400 mg PO DAILY #30 tablet 07/23/18 Nadolol [Corgard -] 40 mg PO DAILY #30 tablet 07/23/18 Calcium Citrate/Vitamin D3 [Citracal-D3 200Mg-250 Unit Tab] 1 each PO DAILY 10/04/18 Multivitamin [One-Daily Multi-Vitamin] 1 each PO DAILY 10/04/18 Pravastatin Sodium 40 mg PO DAILY 10/04/18 Folic Acid - 1 mg PO DAILY tablet 06/26/19 Thiamine HCl [Vitamin B1 -] 100 mg PO DAILY tablet 06/26/19 Levothyroxine [Synthroid -] 25 mcg PO DAILY 02/14/20 Rifaximin [Xifaxan] 550 mg PO DAILY 02/14/20 Ascorbic Acid [Vitamin C -] 500 mg PO BID tablet 02/26/20 Aspirin [ASA -] 325 mg PO DAILY@0800 tablet 02/26/20 Celecoxib [CeleBREX -] 200 mg PO BID #60 capsule 02/26/20 Cephalexin Monohydrate [Keflex -] 500 mg PO TID #30 capsule 02/26/20 Multivitamins [Multivit ([facility] Formulary)] 1 tab PO DAILY tab 02/26/20 Pantoprazole Sodium [Protonix -] 40 mg PO DAILY #40 tablet.ec 02/26/20 Sennosides/Docusate Sodium [Pericolace -] 2 tablet PO BID tablet 02/26/20 oxyCODONE HCL [Roxicodone -] 1 - 2 tab PO Q4H PRN #60 tablet MDD 8 02/26/20 traMADol HCL [Ultram -] 50 mg PO Q4H PRN #42 tablet MDD 6 02/26/20 Apixaban [Eliquis -] 2.5 mg PO BID #70 tablet 02/27/20
--- NOTE | 2020-02-27 19:32 | PN ---
Progress Note (short form) - Note Progress Note: Pt seen and examined. Doing well. AVSS Selected Entries 02/27/20 18:00 Temperature 98.5 F Pulse Rate 56 L Respiratory 18 Rate Blood Pressure 106/47 L O2 Sat by Pulse 97 Oximetry (%) Oxygen Delivery Room Air Method Laboratory Tests 02/27/20 02/27/20 02/27/20 07:04 07:04 15:24 WBC 7.9 Hgb 10.9 Hct 32.9 Plt Count 117 L Sodium 133 L Potassium 4.8 Chloride 99 Carbon Dioxide 26 Anion Gap 8 BUN 13.0 Creatinine 0.7 Est GFR (CKD-EPI)AfAm 106.12 Est GFR (CKD-EPI)NonAf 91.56 POC Glucometer 216 Random Glucose 261 H Gen: NAD LLE: c/d/i, NVID A/P POD#1 s/p L TKA PT/OOB D/C home in AM
[2020-02-27] MEDS ORDERED: ZOLPIDEM TARTRATE 5 MG TABLET PO ONE (20:46)
[2020-02-27] MEDS: ATORVASTATIN CA 10 MG TABLET (FP) PO SCH (21:28)
[2020-02-28] MEDS: ACETAMINOPHEN 325 MG TABLET (FP) PO SCH ×2 (00:41→06:05)
[2020-02-28] MEDS: traMADol HCL 50 MG TABLET PO SCH (05:20)
[2020-02-28] MEDS: INSULIN (NOVOLOG) ASPART 100 UNITS/ML 10ML VIAL SQ SCH (06:05)
[2020-02-28] MEDS: LEVOTHYROXINE NA 25 MCG TABLET (FP) PO SCH (06:05)
[2020-02-28 06:34] VITALS: BP 94/52; PULSE 66; TEMP 98.7
[2020-02-28 08:35] LABS: HEMATOCRIT 31.3 % (32.4-45.2); HEMOGLOBIN 10.7 GM/dl (10.7-15.3); MCHC 34.3 g/dl (32.0-36.0); MEAN CELL VOLUME 96.2 fl (80-96); MEAN PLT VOLUME 8.2 fl (7.5-11.1); PLATELET COUNT 104 K/MM3 (134-434); RBC 3.25 M/mm3 (3.60-5.2); RDW 12.9 % (11.6-15.6); WHITE BLOOD COUNT 9.5 K/mm3 (4.0-10.8)
[2020-02-28 08:41] LABS: ALBUMIN 3.6 g/dl (3.4-5.0); BILIRUBIN,DIRECT 0.2 mg/dL (0.0-0.2); BILIRUBIN,TOTAL 0.6 mg/dl (0.2-1); CALCIUM 9.2 mg/dl (8.5-10); CREATININE 0.5 mg/dl (0.55-1.3); POTASSIUM 4.4 mmol/L (3.5-5.1)
--- NOTE | 2020-02-28 09:57 | SPEC ---
DATE OF OPERATION: 02/26/2020 PREOPERATIVE DIAGNOSIS: Left knee osteoarthritis. POSTOPERATIVE DIAGNOSIS: Left knee osteoarthritis. PROCEDURE: Left total knee replacement with MAKOplasty and robotic navigation. ATTENDING: Dakota West MD PLATEN PRESS FEEDER: RAMESH Sánchez ANESTHESIA: Spinal plus sedation. ESTIMATED BLOOD LOSS: 200 mL. COMPLICATIONS: None. DISPOSITION: The patient was transferred to the PACU in stable condition. IMPLANTS USED: [place] Triathlon size 2 femoral component, size 3 tibial component, 19-mm total stabilized polyethylene component, 29-mm patellar component. INDICATIONS: This is a 64-year-old female who presents to the office complaining of severe knee pain and instability, and she was diagnosed with severe left knee osteoarthritis as well as recurvatum and valgus deformity. The patient was initially treated nonoperatively but failed conservative management and continued to have severe pain and ambulatory dysfunction. She was, therefore, indicated for a left total knee replacement. The risks, benefits, and alternatives to the procedure were explained to the patient in great detail, and she elected to proceed with the surgery. On the day of surgery, the patient was taken to the operating room and placed on the OR table. Spinal anesthesia was administered by the anesthesiologist. The patient was then positioned supine on the table and all bony prominences were padded. The knee was then prepped and draped in the usual sterile fashion and intravenous antibiotics were given for infection prophylaxis. A surgical time-out was then performed with the team, and the patients identity, procedure, side, availability of implants, and the administration of antibiotics was confirmed. With the knee flexed, a midline incision was made and carried down through the subcutaneous fat to the underlying retinaculum. A medial parapatellar arthrotomy was performed. This was followed by a subperiosteal dissection of the tissue off the proximal, medial tibia. A portion of fat pad was removed from under the patellar tendon, and a small portion of fat was excised off the distal supracondylar femur. Electrocautery and an Aquamantys bipolar sealing device were used to achieve hemostasis. The knee was then flexed further and the anterior horn of the lateral meniscus was released from the midline. Next, the anterior and posterior cruciate ligaments were transected. Grade 4 changes were noted diffusely throughout the knee. Femoral and tibial checkpoints were then placed in the appropriate location using a mallet. Two parallel bicortical self-drilling pins were placed in the tibial diaphysis after making stab incisions and bluntly dissecting down to bone. Two pins were then placed in the distal supracondylar femur. The Traackr navigation arrays were then attached to both the femoral and tibial pins and the lower extremity was then registered to the robotic navigation device using various joint movements, as well as inputting several dozen reference points. The knee was then taken through a full range of motion with a corrective force applied. Alignment in varus/valgus as well as flexion/extension and soft tissue balance was measured in various positions. The navigation device showed a numerical and graphic representation of the soft tissue balance. The components were repositioned virtually using the software until optimal soft tissue balance was achieved on screen. Once this was accomplished, the final plan was saved and sent to the robot. Self-retaining retractors were then placed at the joint line for exposure and protection of the collateral ligaments. The robot was brought into the sterile field and registered with the navigation device. The robotic arm with attached oscillating saw blade was then used to perform femoral and tibial bone cuts as per the saved software plan. The femoral box cut was made using the appropriately sized manual cutting guide. The knee was then irrigated. Trial components were placed and the knee was taken through a full range of motion to assess soft tissue balance and alignment. The range of motion was found to be excellent and the soft tissue balance was optimal and according to plan. The knee was then put into extension and the patella everted. The synovium around the patella was circumscribed with electrocautery. A caliper was used to measure the patellar thickness and a saw was then used to resect the patella at the chondro-osseous junction. The cut surface was then sized and drilled for the appropriate patellar button, with care taken to medialize it. A trial patella was then placed and the knee was again taken through a full range of motion. The knee was found to have both good balance and good patellar tracking. All of the components were removed except the tibial base plate. The appropriate instrumentation was used to drill and punch the proximal tibia for the keel of the final component. All bony surfaces were then cleaned with pulsatile lavage and dried. Bone cement was then prepared on the back table, and final components were cemented in place in the usual fashion. Extruded cement was removed. The polyethylene trial was placed, the knee was put into extension, and axial pressure was applied for compression while the cement hardened. The patellar button was similarly cemented into place. Once the cement had hardened, the knee was taken through a full range of motion to assess stability, balance, and patellar tracking. This was found to be optimal and the trial polyethylene was exchanged for the appropriately sized real implant. The wound was then thoroughly irrigated with normal saline. A 3-minute dilute Betadine lavage was performed. The knee was again irrigated using a pulsatile lavage device. A periarticular injection was used to locally infiltrate the capsular tissues surrounding the implant and prosthesis. Then No. 1 Polysorb and 0 VLoc 180 barbed sutures were used to close the arthrotomy. Then No. 1 Polysorb and 2-0 VLoc 90 sutures were used in the subcutaneous tissues. Then 4-0 undyed Vicryl and Dermabond skin adhesive was used to close the stab incisions made for the navigation pins. The skin was closed using both 3-0 VLoc 90 suture in a running subcuticular fashion and Dermabond skin adhesive. Once this was completed a sterile Aquacel dressing and compressive Supa-wrap was applied. The patient was then awakened and taken to the PACU in stable condition. DAKOTA WEST M.D. [id number]
[2020-02-28] MEDS: SENNOSIDES/DOCUSATE COMBO (SENNA PLUS) TABLET (UD) PO SCH (10:14)
[2020-02-28] MEDS: FOLIC ACID 1 MG TABLET (FP) PO SCH (10:15)
[2020-02-28] MEDS: ASCORBIC ACID 500 MG TABLET (FP) PO SCH (10:15)
[2020-02-28] MEDS: PANTOPRAZOLE 40 MG TABLET PO SCH (10:15)
[2020-02-28] MEDS: RIFAXIMIN 550 MG TABLET (UD) PO SCH (10:15)
[2020-02-28] MEDS: THIAMINE HCL 100 MG TABLET (FP) PO SCH (10:15)
[2020-02-28] MEDS: NADOLOL 20 MG TABLET (FP) PO SCH (10:15)
[2020-02-28] MEDS: MAGNESIUM OXIDE 400 MG TABLET (FP) PO SCH (10:15)
[2020-02-28] MEDS: GABAPENTIN 300 MG CAPSULE PO SCH (10:15)
[2020-02-28] MEDS: oxyCODONE HCL 10 MG SUSTAINED ACTING TABLET PO SCH (10:16)
[2020-02-28] MEDS: CELECOXIB 200 MG CAPSULE PO SCH (10:16)
[2020-02-28] MEDS: APIXABAN 2.5 MG TABLET PO SCH (10:16)
[2020-02-28] MEDS: MULTIVITAMINS (DAILY MVI) TABLET (FP) PO SCH (10:16)
--- NOTE | 2020-03-01 18:09 | PATH ---
Surgical Pathology Report Patient Name: CHRIS BINGHAM Med. Rec. #: [id number] /Age/Gender: 1955 (Age: 64) / F Account: [id number] Location: [facility] MED-SURG Taken: 02/26/2020 Received: 02/26/2020 Reported: 03/01/2020 Physicians: Luisito Baca M.D. Specimen(s) Received LEFT KNEE BONES Clinical History Left knee osteoarthritis Final Diagnosis KNEE BONES, LEFT, TOTAL KNEE REPLACEMENT: DEGENERATIVE JOINT DISEASE. Electronically Signed Katerina Michael M.D. Gross Description Received in formalin labeled "left knee bones," is a 12.0 x 8.5 x 2.0 cm aggregate of multiple portions of bone and soft tissue, consistent with knee bones. There is a 2.5 cm in greatest dimension area of eburnation present. The remaining articular surfaces are michaud-yellow and focally granular. The underlying trabecular bone is yellow and hard. White Sugar Boiler sections are submitted in one cassette, following decalcification. 02/28/2020 [facility]02/28/2020
== END 2020-02-28 11:04 | disposition home health service (06) ==
LOC: FASUSAT 08:49 → EDSTATUS 11:00 → FM/S 16:54 → FASUSAT 02-28 11:04
PROVIDERS: ATTEND Student in an Organized Health Care Education/Training Program
PROC: 8E0YXBZ Computer Assisted Procedure of Lower Extremity (ICD-10-PCS; 2020-02-26)
PROC: 8E0Y0CZ Robotic Assisted Procedure of Lower Extremity, Open Approach (ICD-10-PCS; 2020-02-26)
PROC: 0SRD0J9 Replacement of Left Knee Joint with Synthetic Substitute, Cemented, Open Approach (ICD-10-PCS; principal; 2020-02-26 13:00)
DX: M17.12 Unilateral primary osteoarthritis, left knee (principal)
CPT/HCPCS: 20985; 27447; C1776; S2900; 36415; 73560-TC-LT-FY; 80048; 80076; 82962; 85027; 88304-TC; 88311-TC; 94760; 97010-GP; 97116-GP; 97162-GP; J0131; J1100

== ENCOUNTER 2020-04-26 10:24 | Emergency (ER) | payer BC ==
[2020-04-26 10:40] VITALS: BP 124/82; BMI 21.6
--- NOTE | 2020-04-26 11:01 | PDOC ---
History of Present Illness - General Chief Complaint: Injury Stated Complaint: FALL/BACK PAIN Time Seen by Provider: 04/26/20 10:41 History Source: Patient - History of Present Illness Occurred: reports: other Severity: reports: moderate Pain Location: reports: back Method of Injury: Yes: fall Past History - Medical History Allergies/Adverse Reactions: Allergies Allergy/AdvReac Type Severity Reaction Status Date / Time NSAIDS (Non-Steroidal AdvReac Severe LIVER Verified 02/26/20 10:10 Anti-Inflamma DAMAGE;H/O CIRRHOSIS Home Medications: Ambulatory Orders Clonazepam 1 mg PO HS PRN 07/20/18 Magnesium Oxide [Mag-Ox -] 400 mg PO DAILY #30 tablet 07/23/18 Nadolol [Corgard -] 40 mg PO DAILY #30 tablet 07/23/18 Calcium Citrate/Vitamin D3 [Citracal-D3 200Mg-250 Unit Tab] 1 each PO DAILY 10/04/18 Multivitamin [One-Daily Multi-Vitamin] 1 each PO DAILY 10/04/18 Pravastatin Sodium 40 mg PO DAILY 10/04/18 Folic Acid - 1 mg PO DAILY tablet 06/26/19 Thiamine HCl [Vitamin B1 -] 100 mg PO DAILY tablet 06/26/19 Levothyroxine [Synthroid -] 25 mcg PO DAILY 02/14/20 Rifaximin [Xifaxan] 550 mg PO DAILY 02/14/20 Ascorbic Acid [Vitamin C -] 500 mg PO BID tablet 02/26/20 Aspirin [ASA -] 325 mg PO DAILY@0800 tablet 02/26/20 Celecoxib [CeleBREX -] 200 mg PO BID #60 capsule 02/26/20 Cephalexin Monohydrate [Keflex -] 500 mg PO TID #30 capsule 02/26/20 Multivitamins [Multivit ([facility] Formulary)] 1 tab PO DAILY tab 02/26/20 Pantoprazole Sodium [Protonix -] 40 mg PO DAILY #40 tablet.ec 02/26/20 Sennosides/Docusate Sodium [Pericolace -] 2 tablet PO BID tablet 02/26/20 oxyCODONE HCL [Roxicodone -] 1 - 2 tab PO Q4H PRN #60 tablet MDD 8 02/26/20 traMADol HCL [Ultram -] 50 mg PO Q4H PRN #42 tablet MDD 6 02/26/20 Apixaban [Eliquis -] 2.5 mg PO BID #70 tablet 02/27/20 Cyclobenzaprine HCl [Flexeril 10 mg] 10 mg PO HS #7 tablet 04/26/20 Naproxen 500 mg PO BID #14 tablet 04/26/20 Anemia: No Asthma: No Cancer: No Cardiac Disorders: No CVA: No COPD: No CHF: No Dementia: No Diabetes: Yes (borderline) GI Disorders: Yes (cholelithiasis,GERD) Disorders: No HTN: Yes Hypercholesterolemia: Yes Liver Disease: Yes (CIRROHOSIS) Seizures: No Thyroid Disease: Yes - Surgical History Abdominal Surgery: No Appendectomy: No Cardiac Surgery: No Cholecystectomy: No Lung Surgery: No Neurologic Surgery: No Orthopedic Surgery: No - Reproductive History Is Patient Now?: No - Immunization History Immunization Up to Date: No - Psycho-Social/Smoking History Smoking History: Never smoked Have you smoked in the past 12 months: No Information on smoking cessation initiated: No - Substance Abuse Hx (Audit-C & DAST Scrn) How often the patient has a drink containing alcohol: Never Score: In Men: 4 or > Positive; In Women: 3 or > Positive: 0 Screen Result (Pos requires Nsg. Audit-10AR): Negative In the last yr the pt used illegal drug/Rx for NonMed reason: No Score: Yes response is considered Positive: 0 Screen Result (Positive result requires Nsg. DAST-10): Negative Review of Systems - Review of Systems Musculoskeletal: Yes: Back Pain. No: Joint Swelling, Neck Pain Neurological: No: Headache, Numbness, Weakness, Dizziness *Physical Exam - Vital Signs Last Vital Signs Temp Pulse Resp BP Pulse Ox 127 H 16 124/82 99 04/26/20 10:36 04/26/20 10:36 04/26/20 10:36 04/26/20 10:36 - Physical Exam General Appearance: Yes: Appropriately Dressed. No: Apparent Distress HEENT: positive: Normal Voice Neck: positive: Supple Respiratory/Chest: negative: Respiratory Distress Gastrointestinal/Abdominal: positive: Soft. negative: Tender Musculoskeletal: positive: Vertebral Tenderness (to lower back diffusely) Extremity: positive: Normal Inspection, Normal Range of Motion. negative: Tender, Swelling Integumentary: positive: Dry, Warm Neurologic: positive: Fully Oriented, Alert, Normal Mood/Affect, Motor Strength 5/ Medical Decision Making - Medical Decision Making 04/26/20 11:23 64 yo F, h/o ETOH cirrhosis, OA, s/p knee replacement, here w/ lower back pain s/p fall 4 days ago. States she tripped on a step while going into her bathroom at home and used hand to break fall. Never hit back or head and denies hand/wrist pain or swelling. Not on blood thinners. LBP localized, achy, 7/10, worse w/ movement and weight bearing. Using cane to bear weight since. Took aleve w/ minimal relief. accompanying pt in ED see exam Lower back strain s/p minor injury No impact to back Bearing weight w/ cane w/ reproducible lower back ttp -Dc w/ pain control (pt denies allergy to NSAIDs and currently taking aleve at home, triage nurse informed to remove nsaid allergy from pt's records) -PMD f/u as needed Discharge - Discharge Information Problems reviewed: Yes Clinical Impression/Diagnosis: Back strain Qualifiers: Encounter type: initial encounter Qualified Code(s): S39.012A - Strain of muscle, fascia and tendon of lower back, initial encounter Condition: Good Disposition: HOME - Additional Discharge Information Prescriptions: Cyclobenzaprine HCl [Flexeril 10 mg] 10 mg PO HS #7 tablet Naproxen 500 mg PO BID #14 tablet - Follow up/Referral Referrals: Patricia Skinner MD [Primary Care Provider] - - Patient Discharge Instructions Patient Printed Discharge Instructions: DI for Back Strain or Sprain Additional Instructions: Take medication as directed and follow up with your PMD as needed - Post Discharge Activity
[2020-04-26 11:25] VITALS: PULSE 96
== END 2020-04-26 11:02 | disposition home or self-care (01) ==
LOC: JER 10:24
DX: S39.012A Strain of muscle, fascia and tendon of lower back, initial encounter (principal)
CPT/HCPCS: 99283-25

== ENCOUNTER 2021-07-08 17:56 | Inpatient (IN) | payer OTHER, BC ==
[2021-07-08 18:26] VITALS: BMI 21.9
[2021-07-08] MEDS ORDERED: chlordiazePOXIDE HCL 25 MG CAPSULE PO ONE (19:28)
[2021-07-08] MEDS ORDERED: FOLIC ACID INJECTION - 1 MG, THIAMINE HCL 100 MG, MULTIVIT INJECTION ADULT 10 ML in SOD... IVPB ONE (19:28)
[2021-07-08 20:28] LABS: BASO % 1.1 % (0-2.0); EOS % 2.7 % (0-4.5); HEMATOCRIT 34.3 % (32.4-45.2); LYMPH % 20.5 % (8-40); MCH 37.6 pg (25.7-33.7); MEAN CELL VOLUME 107.6 fl (80-96); MEAN PLT VOLUME 8.8 fl (7.5-11.1); MONO % 8.4 % (3.8-10.2); NEUT % 67.3 % (42.8-82.8); PLATELET COUNT 57 10^3/uL (134-434); RBC 3.19 M/mm3 (3.60-5.2); RDW 15.2 % (11.6-15.6); WHITE BLOOD COUNT 9.7 K/mm3 (4.0-10.0)
[2021-07-08 20:30] LABS: EPI CELLS >36 /uL (0-25.1); HYALINE CASTS 8 /uL (0-3.1); PH,URINE 5.5 (5.0-8.0); URINE APPEARANCE CLOUDY; URINE BACTERIA >9,000 /uL (0-1359); URINE BILIRUBIN 3+ (NEGATIVE); URINE COLOR ORANGE; URINE GLUCOSE (UA) NEGATIVE (NEGATIVE); URINE KETONE NEGATIVE (NEGATIVE); URINE LEUK ESTERASE 1+ (NEGATIVE); URINE NITRITE POSITIVE (NEGATIVE); URINE PROTEIN 2+ (NEGATIVE); URINE WBC 67 /uL (0-25.8)
[2021-07-08] MEDS ORDERED: FOLIC ACID 1 MG TABLET (FP) PO ONE (20:30)
[2021-07-08] MEDS ORDERED: SODIUM CHLORIDE 0.9% 500 ML INFUS.BAG IV ONE (20:31)
[2021-07-08] MEDS ORDERED: THIAMINE HCL 100 MG TABLET (FP) PO ONE (20:31)
[2021-07-08] MEDS ORDERED: LORazepam 2 MG TABLET PO ONE (20:32)
[2021-07-08] MEDS ORDERED: CEFTRIAXONE 1,000 MG in DEXTROSE 5%-WATER - 50 ML IVPB ONE (20:41)
[2021-07-08 20:46] LABS: CHLORIDE 90 mmol/L (98-107); SODIUM 137 mmol/L (136-145)
[2021-07-08 20:48] LABS: BLOOD UREA NITROGEN 10.1 mg/dL (7-18); CALCIUM 8.6 mg/dL (8.5-10.1)
[2021-07-08 20:49] LABS: ALBUMIN 3.4 g/dl (3.4-5.0); CO2 32 mmol/L (21-32); GLUCOSE,RANDOM 80 mg/dL (74-106); LIPASE 105 U/L (73-393)
[2021-07-08 20:52] LABS: CREATININE 0.5 mg/dL (0.55-1.3); SGOT/AST 100 U/L (15-37); SGPT/ALT 26 U/L (13-61)
[2021-07-08 20:53] LABS: BILIRUBIN,TOTAL 4.7 mg/dL (0.2-1); TOT PROT 8.6 g/dl (6.4-8.2)
[2021-07-08 20:54] LABS: ALK PHOS 695 U/L (45-117)
[2021-07-08] MEDS ORDERED: THIAMINE HCL 100 MG TABLET (FP) ONE (20:54)
[2021-07-08] MEDS ORDERED: FOLIC ACID 1 MG TABLET (FP) ONE (20:55)
[2021-07-08] MEDS ORDERED: CEFTRIAXONE 1 GM/50 ML BAG ONE (20:55)
[2021-07-08] MEDS ORDERED: LORazepam 1 MG TABLET ONE (20:55)
[2021-07-08 21:19] LABS: URINE RBC 77.1 /uL (0-23.9)
[2021-07-08 21:50] LABS: ANION GAP 15 MMOL/L (8-16)
[2021-07-08] MEDS ORDERED: MAGNESIUM SULF 50% (8.12 MEQ/2 ML-1 GM VIAL) IVPB ONE (22:26)
[2021-07-08 23:05] LABS: MACROCYTOSIS 1+
[2021-07-08] MEDS ORDERED: ACETAMINOPHEN 325 MG TABLET (FP) PO PRN (23:33)
[2021-07-08] MEDS ORDERED: LORazepam 1 MG TABLET PO PRN (23:33)
[2021-07-08] MEDS ORDERED: POTASSIUM CHLORIDE TABS 20 MEQ TABLET.ER (FP) PO ONE (23:34)
[2021-07-08] MEDS ORDERED: MAGNESIUM 1GM/D5W - 1 GM/100 ML IVPB IVPB ONE (23:42)
[2021-07-08] MEDS ORDERED: LACTULOSE 20 GM/30 ML UDC (FOR ORAL USE ONLY) PO PRN (23:59)
[2021-07-08] MEDS ORDERED: diazePAM 5 MG TABLET PO PRN (23:59)
[2021-07-09] MEDS ORDERED: METOCLOPRAMIDE HCL INJECTION 10 MG/2 ML VIAL IVPUSH PRN (00:01)
[2021-07-09] MEDS ORDERED: KCL 10 MEQ IVPB 10 MEQ/100 ML INFUS.BAG IVPB ONE ×2 (01:08→03:49)
[2021-07-09] MEDS: SODIUM CHLORIDE 1,000 ML IV SCH ×2 (01:48→21:27)
[2021-07-09] MEDS: KCL 10 MEQ IVPB 10 MEQ/100 ML INFUS.BAG IVPB SCH ×4 (01:48→17:54)
[2021-07-09] MEDS ORDERED: POTASSIUM PHOSPHATE 30 MM in SODIUM CHLORIDE 500 ML IVPB ONE (02:00)
[2021-07-09 02:11] LABS: INR 1.57 (0.83-1.09); PROTHROMBIN TIME (PATIENT) 18.5 SEC (9.7-13.0)
[2021-07-09 06:14] LABS: BASO % 0.9 % (0-2.0); HEMATOCRIT 29.9 % (32.4-45.2); HEMOGLOBIN 10.5 GM/dL (10.7-15.3); LYMPH % 14.2 % (8-40); MCH 38.2 pg (25.7-33.7); MEAN CELL VOLUME 109.1 fl (80-96); MEAN PLT VOLUME 9.5 fl (7.5-11.1); MONO % 10.2 % (3.8-10.2); NEUT % 70.7 % (42.8-82.8); PLATELET COUNT 45 10^3/uL (134-434); RBC 2.74 M/mm3 (3.60-5.2); RDW 15.5 % (11.6-15.6)
[2021-07-09 06:26] LABS: INR 1.63 (0.83-1.09); PROTHROMBIN TIME (PATIENT) 19.2 SEC (9.7-13.0)
[2021-07-09 06:32] LABS: CALCIUM 7.6 mg/dL (8.5-10.1)
[2021-07-09 06:33] LABS: BLOOD UREA NITROGEN 9.2 mg/dL (7-18); MAGNESIUM 1.2 mg/dL (1.8-2.4)
[2021-07-09 06:35] LABS: PHOSPHOROUS 2.4 mg/dL (2.5-4.9)
[2021-07-09 06:36] LABS: CREATININE 0.4 mg/dL (0.55-1.3)
[2021-07-09 06:37] LABS: BILIRUBIN,TOTAL 4.3 mg/dL (0.2-1)
[2021-07-09 06:47] LABS: ALBUMIN 2.7 g/dl (3.4-5.0)
[2021-07-09] MEDS ORDERED: POTASSIUM CHLORIDE ORAL LIQUID 20 MEQ/15 ML PO ONE (06:51)
[2021-07-09] MEDS ORDERED: NAPH,MB-DB/K PH,MBDB POWDER PACKET PO ONE (06:52)
[2021-07-09] MEDS ORDERED: MAGNESIUM SULF 50% (8.12 MEQ/2 ML-1 GM VIAL) IVPB ONE ×2 (06:52→06:53)
[2021-07-09] MEDS ORDERED: POTASSIUM CHLORIDE ORAL LIQUID 20 MEQ/15 ML ONE (08:54)
[2021-07-09] MEDS: NAPH,MB-DB/K PH,MBDB POWDER PACKET PO SCH ×3 (09:15→21:29)
[2021-07-09] MEDS ORDERED: NAPH,MB-DB/K PH,MBDB POWDER PACKET ONE (09:23)
[2021-07-09] MEDS ORDERED: MAGNESIUM SULFATE IN WATER 2 GM/50 ML IVPB IVPB ONE (09:23)
[2021-07-09] MEDS ORDERED: PrednisoLONE 15 MG/5 ML UNIT-DOSE CUP PO SCH (10:00)
[2021-07-09] MEDS ORDERED: NADOLOL 20 MG TABLET (FP) PO SCH ×2 (10:00)
[2021-07-09] MEDS ORDERED: THIAMINE HCL 100 MG TABLET (FP) ONE (10:13)
[2021-07-09] MEDS ORDERED: LACTULOSE 20 GM/30 ML UDC (FOR ORAL USE ONLY) ONE (10:13)
[2021-07-09] MEDS ORDERED: FOLIC ACID 1 MG TABLET (FP) ONE (10:13)
[2021-07-09] MEDS ORDERED: CEFTRIAXONE 1 GM/50 ML BAG ONE (10:14)
[2021-07-09] MEDS ORDERED: ENOXAPARIN NA (PORCINE) 40 MG/0.4 ML DISP.SYRIN SQ ONE (10:14)
[2021-07-09] MEDS: THIAMINE HCL 100 MG TABLET (FP) PO SCH (11:00)
[2021-07-09] MEDS: FOLIC ACID 1 MG TABLET (FP) PO SCH (11:00)
[2021-07-09] MEDS: LACTULOSE 20 GM/30 ML UDC (FOR ORAL USE ONLY) PO SCH (11:00)
[2021-07-09] MEDS: ENOXAPARIN NA (PORCINE) 40 MG/0.4 ML DISP.SYRIN SQ SCH (11:00)
[2021-07-09] MEDS: CEFTRIAXONE 1 GM in DEXTROSE 5%-WATER - 50 ML IVPB SCH (11:00)
[2021-07-09] MEDS: NADOLOL 40 MG TABLET (FP) PO SCH (16:14)
[2021-07-09] MEDS: RIFAXIMIN 550 MG TABLET PO SCH ×3 (16:15→22:42)
[2021-07-09 18:11] LABS: BLOOD UREA NITROGEN 8.4 mg/dL (7-18); CALCIUM 7.9 mg/dL (8.5-10.1)
[2021-07-09 18:14] LABS: CREATININE 0.7 mg/dL (0.55-1.3)
[2021-07-09] MEDS ORDERED: PT OWN MED DRAWER 7, Y5N ONE (21:19)
[2021-07-09] MEDS: ATORVASTATIN CA 10 MG TABLET (FP) PO SCH (21:29)
[2021-07-09] MEDS: LORazepam 2 MG/ML SDV VIAL IVPUSH PRN (21:37)
[2021-07-10] MEDS: SODIUM CHLORIDE 1,000 ML IV SCH (04:40)
[2021-07-10] MEDS: NAPH,MB-DB/K PH,MBDB POWDER PACKET PO SCH (05:48)
[2021-07-10 07:06] LABS: HEMATOCRIT 27.2 % (32.4-45.2); HEMOGLOBIN 9.3 GM/dL (10.7-15.3); MCHC 34.2 g/dl (32.0-36.0); MEAN CELL VOLUME 110.9 fl (80-96); MEAN PLT VOLUME 9.4 fl (7.5-11.1); PLATELET COUNT 42 10^3/uL (134-434); RBC 2.46 M/mm3 (3.60-5.2); RDW 15.5 % (11.6-15.6); WHITE BLOOD COUNT 4.2 K/mm3 (4.0-10.0)
[2021-07-10 07:08] LABS: INR 1.64 (0.83-1.09); PROTHROMBIN TIME (PATIENT) 18.5 SEC (9.7-13.0)
[2021-07-10 07:11] LABS: ACTIVATED PTT 28.8 SECONDS (25.2-36.5)
[2021-07-10 07:29] LABS: CALCIUM 7.2 mg/dL (8.5-10.1)
[2021-07-10 07:30] LABS: ALBUMIN 2.3 g/dl (3.4-5.0); BLOOD UREA NITROGEN 6.3 mg/dL (7-18); MAGNESIUM 1.5 mg/dL (1.8-2.4)
[2021-07-10 07:32] LABS: PHOSPHOROUS 2.4 mg/dL (2.5-4.9)
[2021-07-10 07:33] LABS: CREATININE 0.3 mg/dL (0.55-1.3)
[2021-07-10 07:34] LABS: BILIRUBIN,TOTAL 2.9 mg/dL (0.2-1); TOT PROT 6.2 g/dl (6.4-8.2)
[2021-07-10] MEDS ORDERED: cefTRIAXone SODIUM 1 GM VIAL ONE (09:10)
[2021-07-10] MEDS ORDERED: DEXTROSE 5%-WATER - 50 ML IVPB ONE (09:10)
[2021-07-10] MEDS ORDERED: MAGNESIUM 2GM/50ML STERILE WATER IVPB IVPB ONE (10:00)
[2021-07-10] MEDS: ENOXAPARIN NA (PORCINE) 40 MG/0.4 ML DISP.SYRIN SQ SCH (10:10)
[2021-07-10] MEDS: KCL 10 MEQ IVPB 10 MEQ/100 ML INFUS.BAG IVPB SCH ×3 (10:10→14:26)
[2021-07-10] MEDS: FOLIC ACID 1 MG TABLET (FP) PO SCH (10:11)
[2021-07-10] MEDS: RIFAXIMIN 550 MG TABLET PO SCH ×2 (10:13→21:32)
[2021-07-10] MEDS: NADOLOL 40 MG TABLET (FP) PO SCH (10:13)
[2021-07-10] MEDS: THIAMINE HCL 100 MG TABLET (FP) PO SCH (10:13)
[2021-07-10] MEDS: CEFTRIAXONE 1 GM in DEXTROSE 5%-WATER - 50 ML IVPB SCH (10:14)
[2021-07-10] MEDS: LACTULOSE 20 GM/30 ML UDC (FOR ORAL USE ONLY) PO SCH (10:14)
[2021-07-10] MEDS ORDERED: POTASSIUM CHLORIDE TABS 20 MEQ TABLET.ER (FP) PO ONE (10:15)
[2021-07-10] MEDS ORDERED: MAGNESIUM SULF 50% (8.12 MEQ/2 ML-1 GM VIAL) IVPB ONE (13:00)
[2021-07-10] MEDS ORDERED: POTASSIUM PHOSPHATE 30 MM in SODIUM CHLORIDE 500 ML IVPB ONE (13:01)
[2021-07-10] MEDS ORDERED: FOLIC ACID INJECTION - 1 MG, THIAMINE HCL 100 MG, MULTIVIT INJECTION ADULT 10 ML in SOD... IVPB ONE (13:05)
[2021-07-10] MEDS ORDERED: PT OWN MED DRAWER 7, Y5N ONE (20:41)
[2021-07-10] MEDS: ATORVASTATIN CA 10 MG TABLET (FP) PO SCH (21:32)
[2021-07-10] MEDS: LORazepam 2 MG/ML SDV VIAL IVPUSH PRN (23:22)
[2021-07-11 07:10] LABS: HEMOGLOBIN 9.2 GM/dL (10.7-15.3); MCH 38.2 pg (25.7-33.7); MCHC 34.3 g/dl (32.0-36.0); MEAN CELL VOLUME 111.5 fl (80-96); MEAN PLT VOLUME 8.8 fl (7.5-11.1); PLATELET COUNT 43 10^3/uL (134-434); RBC 2.42 M/mm3 (3.60-5.2); RDW 15.7 % (11.6-15.6); WHITE BLOOD COUNT 3.9 K/mm3 (4.0-10.0)
[2021-07-11 07:11] LABS: INR 1.57 (0.83-1.09); PROTHROMBIN TIME (PATIENT) 18.5 SEC (9.7-13.0)
[2021-07-11 07:14] LABS: ACTIVATED PTT 28.7 SECONDS (25.2-36.5)
[2021-07-11 07:33] LABS: ALBUMIN 2.4 g/dl (3.4-5.0); BLOOD UREA NITROGEN 4.2 mg/dL (7-18); CALCIUM 7.2 mg/dL (8.5-10.1)
[2021-07-11 07:34] LABS: MAGNESIUM 1.7 mg/dL (1.8-2.4)
[2021-07-11 07:36] LABS: CREATININE 0.3 mg/dL (0.55-1.3); PHOSPHOROUS 2.1 mg/dL (2.5-4.9)
[2021-07-11 07:38] LABS: BILIRUBIN,TOTAL 2.7 mg/dL (0.2-1); TOT PROT 6.4 g/dl (6.4-8.2)
[2021-07-11] MEDS ORDERED: MAGNESIUM 2GM/50ML STERILE WATER IVPB IVPB ONE (09:00)
[2021-07-11] MEDS ORDERED: SODIUM PHOSPHATE - 30 MM in SODIUM CHLORIDE 500 ML IVPB ONE (09:30)
[2021-07-11] MEDS ORDERED: DEXTROSE 5%-WATER - 50 ML IVPB ONE (09:33)
[2021-07-11] MEDS ORDERED: cefTRIAXone SODIUM 1 GM VIAL ONE (09:33)
[2021-07-11] MEDS: ENOXAPARIN NA (PORCINE) 40 MG/0.4 ML DISP.SYRIN SQ SCH (09:40)
[2021-07-11] MEDS: LACTULOSE 20 GM/30 ML UDC (FOR ORAL USE ONLY) PO SCH (09:40)
[2021-07-11] MEDS: THIAMINE HCL 100 MG TABLET (FP) PO SCH (09:40)
[2021-07-11] MEDS: FOLIC ACID 1 MG TABLET (FP) PO SCH (09:40)
[2021-07-11] MEDS: CEFTRIAXONE 1 GM in DEXTROSE 5%-WATER - 50 ML IVPB SCH (09:41)
[2021-07-11] MEDS: NADOLOL 40 MG TABLET (FP) PO SCH (09:41)
[2021-07-11] MEDS: RIFAXIMIN 550 MG TABLET PO SCH ×2 (09:42→21:38)
[2021-07-11] MEDS ORDERED: PT OWN MED DRAWER 7, Y5N ONE ×2 (11:17→21:01)
[2021-07-11] MEDS ORDERED: POTASSIUM PHOSPHATE 30 MM in SODIUM CHLORIDE 500 ML IVPB ONE (15:17)
[2021-07-11] MEDS: ATORVASTATIN CA 10 MG TABLET (FP) PO SCH (21:38)
[2021-07-11] MEDS: LORazepam 2 MG/ML SDV VIAL IVPUSH PRN (21:48)
[2021-07-12 08:15] LABS: HEMATOCRIT 29.8 % (32.4-45.2); HEMOGLOBIN 10.3 GM/dL (10.7-15.3); MCH 38.5 pg (25.7-33.7); MCHC 34.4 g/dl (32.0-36.0); MEAN CELL VOLUME 111.9 fl (80-96); MEAN PLT VOLUME 9.1 fl (7.5-11.1); PLATELET COUNT 55 10^3/uL (134-434); RBC 2.67 M/mm3 (3.60-5.2); RDW 15.9 % (11.6-15.6); WHITE BLOOD COUNT 4.6 K/mm3 (4.0-10.0)
[2021-07-12 08:24] LABS: INR 1.62 (0.83-1.09); PROTHROMBIN TIME (PATIENT) 19.1 SEC (9.7-13.0)
[2021-07-12 08:26] LABS: ACTIVATED PTT 30.2 SECONDS (25.2-36.5)
[2021-07-12 08:28] LABS: ALBUMIN 2.6 g/dl (3.4-5.0); BLOOD UREA NITROGEN 3.4 mg/dL (7-18); CALCIUM 7.6 mg/dL (8.5-10.1)
[2021-07-12 08:29] LABS: MAGNESIUM 1.6 mg/dL (1.8-2.4)
[2021-07-12 08:30] LABS: CREATININE 0.4 mg/dL (0.55-1.3); PHOSPHOROUS 2.6 mg/dL (2.5-4.9)
[2021-07-12 08:32] LABS: BILIRUBIN,TOTAL 3.3 mg/dL (0.2-1); TOT PROT 6.8 g/dl (6.4-8.2)
[2021-07-12] MEDS ORDERED: cefTRIAXone SODIUM 1 GM VIAL ONE (08:49)
[2021-07-12] MEDS ORDERED: DEXTROSE 5%-WATER - 50 ML IVPB ONE (08:50)
[2021-07-12] MEDS: CEFTRIAXONE 1 GM in DEXTROSE 5%-WATER - 50 ML IVPB SCH (09:15)
[2021-07-12] MEDS: FOLIC ACID 1 MG TABLET (FP) PO SCH (09:29)
[2021-07-12] MEDS: LACTULOSE 20 GM/30 ML UDC (FOR ORAL USE ONLY) PO SCH (09:29)
[2021-07-12] MEDS: RIFAXIMIN 550 MG TABLET PO SCH (09:29)
[2021-07-12] MEDS: NADOLOL 40 MG TABLET (FP) PO SCH (09:29)
[2021-07-12] MEDS: ENOXAPARIN NA (PORCINE) 40 MG/0.4 ML DISP.SYRIN SQ SCH (09:30)
[2021-07-12] MEDS: THIAMINE HCL 100 MG TABLET (FP) PO SCH (09:30)
[2021-07-12] MEDS ORDERED: MAGNESIUM SULF 50% (8.12 MEQ/2 ML-1 GM VIAL) IVPB ONE ×2 (10:20→14:58)
[2021-07-12] MEDS ORDERED: NAPH,MB-DB/K PH,MBDB POWDER PACKET PO ONE (14:58)
[2021-07-12 18:26] VITALS: BP 150/85; PULSE 78; TEMP 97.6
== END 2021-07-12 18:31 | disposition home or self-care (01) | DRG 690 ==
LOC: JER 17:56 → JERBED 22:25 → J4W 07-09 13:38
PROVIDERS: ATTEND Internal Medicine
DX: N39.0 Urinary tract infection, site not specified (principal); F10.230 Alcohol dependence with withdrawal, uncomplicated; K76.6 Portal hypertension; E72.20 Disorder of urea cycle metabolism, unspecified; K70.30 Alcoholic cirrhosis of liver without ascites; E78.5 Hyperlipidemia, unspecified; E83.42 Hypomagnesemia; E87.6 Hypokalemia; D69.6 Thrombocytopenia, unspecified; R73.03 Prediabetes; K31.89 Other diseases of stomach and duodenum; E03.9 Hypothyroidism, unspecified
CPT/HCPCS: 36415; 71046-TC-FY; 76700-TC; 80048; 80053; 80061; 80307; 81003; 82140; 82272; 83036; 83690; 83735; 84100; 84439; 84443; 85025; 85027; 85610; 85730; 87086; 87186; 93005; 93010; 99285-25; C9803; U0003; U0005

== ENCOUNTER 2021-08-29 07:48 | Day surgery (SDC) | payer OTHER, BC ==
[2021-08-26 10:37] VITALS: BMI 23.3
[2021-08-29] MEDS ORDERED: LIDOCAINE HCL/PF 2% SDV 5ML VIAL ONE (08:20)
[2021-08-29] MEDS ORDERED: PROPOFOL 20 ML ONE ×4 (08:20)
[2021-08-29 10:11] LABS: INR 1.44 (0.83-1.09)
[2021-08-29 11:56] LABS: BASO % 0.9 % (0-2.0); EOS % 3.9 % (0-4.5); HEMATOCRIT 36.4 % (32.4-45.2); HEMOGLOBIN 12.2 GM/dL (10.7-15.3); LYMPH % 39.5 % (8-40); MCH 33.9 pg (25.7-33.7); MCHC 33.5 g/dl (32.0-36.0); MEAN CELL VOLUME 101.5 fl (80-96); MEAN PLT VOLUME 8.1 fl (7.5-11.1); MONO % 7.9 % (3.8-10.2); NEUT % 47.8 % (42.8-82.8); PLATELET COUNT 99 10^3/uL (134-434); RBC 3.59 M/mm3 (3.60-5.2); RDW 13.1 % (11.6-15.6)
[2021-08-29 13:32] VITALS: BP 128/75; PULSE 79; TEMP 97.8
== END 2021-08-29 13:21 | disposition home or self-care (01) ==
LOC: FASU-ENDO 07:48
PROVIDERS: ATTEND Internal Medicine Gastroenterology
PROC: 0DJD8ZZ Inspection of Lower Intestinal Tract, Via Natural or Artificial Opening Endoscopic (ICD-10-PCS; principal; 2021-08-29 12:00)
DX: Z12.11 Encounter for screening for malignant neoplasm of colon (principal); K64.1 Second degree hemorrhoids
CPT/HCPCS: 36415; 85025; 85610

== ENCOUNTER 2021-11-04 07:26 | Inpatient (IN) | payer OTHER, BC ==
[2021-11-04] MEDS ORDERED: chlordiazePOXIDE HCL 25 MG CAPSULE PO ONE (09:07)
[2021-11-04] MEDS ORDERED: chlordiazePOXIDE HCL 25 MG CAPSULE ONE (09:10)
[2021-11-04] MEDS ORDERED: ONDANSETRON 4 MG TABLET PO ONE (09:17)
[2021-11-04] MEDS ORDERED: LACTATED RINGERS SOLUTION 1000 ML INFUS.BAG IV ONE (09:17)
[2021-11-04] MEDS ORDERED: diazePAM CARPU-JECT 10 MG/2 ML DISP.SYRIN IVPUSH ONE (09:18)
[2021-11-04] MEDS ORDERED: diazePAM CARPU-JECT 10 MG/2 ML DISP.SYRIN ONE (09:25)
[2021-11-04] MEDS ORDERED: ONDANSETRON 4 MG/2 ML VIAL ONE (09:25)
[2021-11-04 09:54] LABS: BASO % 0.3 % (0-2.0); HEMATOCRIT 34.9 % (32.4-45.2); LYMPH % 8.7 % (8-40); MCH 34.1 pg (25.7-33.7); MCHC 34.5 g/dl (32.0-36.0); MEAN CELL VOLUME 98.9 fl (80-96); MEAN PLT VOLUME 9.1 fl (7.5-11.1); MONO % 4.1 % (3.8-10.2); NEUT % 86.9 % (42.8-82.8); RBC 3.53 M/mm3 (3.60-5.2); RDW 16.1 % (11.6-15.6); WHITE BLOOD COUNT 3.9 K/mm3 (4.0-10.0)
[2021-11-04 10:19] LABS: ALBUMIN 3.6 g/dl (3.4-5.0); BLOOD UREA NITROGEN 8.5 mg/dL (7-18); CALCIUM 8.4 mg/dL (8.5-10.1)
[2021-11-04 10:22] LABS: CREATININE 0.6 mg/dL (0.55-1.3)
[2021-11-04 10:23] LABS: BILIRUBIN,TOTAL 4.2 mg/dL (0.2-1)
[2021-11-04 10:27] LABS: PLATELET COUNT 24 10^3/uL (134-434)
[2021-11-04 12:09] LABS: MAGNESIUM 1.1 mg/dL (1.8-2.4)
[2021-11-04] MEDS ORDERED: LORazepam 1 MG TABLET PO PRN (12:45)
[2021-11-04] MEDS ORDERED: SODIUM CHLORIDE 1,000 ML IV SCH (12:45)
[2021-11-04 12:55] LABS: INR 1.53 (0.83-1.09); PROTHROMBIN TIME (PATIENT) 17.7 SEC (9.7-13.0)
[2021-11-04 12:58] LABS: ACTIVATED PTT 29.4 SECONDS (25.2-36.5)
[2021-11-04] MEDS: PANTOPRAZOLE SODIUM 40 MG VIAL IVPUSH SCH (13:01)
[2021-11-04] MEDS ORDERED: MAGNESIUM SULF 50% (8.12 MEQ/2 ML-1 GM VIAL) IVPB ONE ×2 (14:48→18:34)
[2021-11-04] MEDS: KCL 10 MEQ IVPB 10 MEQ/100 ML INFUS.BAG IVPB SCH ×2 (15:15→20:44)
[2021-11-04] MEDS ORDERED: MAGNESIUM SULFATE IN WATER 2 GM/50 ML IVPB IVPB ONE (16:47)
[2021-11-04] MEDS ORDERED: LORazepam 1 MG TABLET ONE ×2 (16:47→21:25)
[2021-11-04] MEDS ORDERED: KCL 10 MEQ IVPB 10 MEQ/100 ML INFUS.BAG IVPB ONE ×2 (16:48→20:36)
[2021-11-04] MEDS: LORazepam 2 MG TABLET PO SCH (17:33)
[2021-11-05] MEDS ORDERED: KCL 10 MEQ IVPB 10 MEQ/100 ML INFUS.BAG IVPB ONE ×2 (00:02→03:15)
[2021-11-05] MEDS ORDERED: LORazepam 1 MG TABLET ONE (00:10)
[2021-11-05] MEDS: LORazepam 2 MG TABLET PO SCH (00:16)
[2021-11-05] MEDS: KCL 10 MEQ IVPB 10 MEQ/100 ML INFUS.BAG IVPB SCH ×7 (00:16→12:00)
[2021-11-05] MEDS ORDERED: ADENOSINE 6 MG/2 ML VIAL IVPUSH ONE ×7 (01:58→02:40)
[2021-11-05] MEDS ORDERED: FOLIC ACID INJECTION - 1 MG, THIAMINE HCL 100 MG, MULTIVIT INJECTION ADULT 10 ML in SOD... IVPB ONE (02:11)
[2021-11-05] MEDS ORDERED: LORazepam 2 MG/ML SDV VIAL IVPUSH ONE ×2 (02:11→03:11)
[2021-11-05] MEDS ORDERED: dilTIAZem HCL 30 MG TABLET ONE (02:56)
[2021-11-05] MEDS ORDERED: dilTIAZem HCL 30 MG TABLET PO SCH (03:00)
[2021-11-05] MEDS ORDERED: MAGNESIUM 1GM/D5W 100ML - 100 ML IVPB IVPB ONE ×2 (03:03→03:22)
[2021-11-05] MEDS ORDERED: MAGNESIUM 1GM/D5W - 1 GM/100 ML IVPB IVPB ONE (03:15)
[2021-11-05] MEDS ORDERED: SODIUM CHLORIDE 1,000 ML IV STA (03:21)
[2021-11-05] MEDS ORDERED: diazePAM CARPU-JECT 10 MG/2 ML DISP.SYRIN IVPUSH ONE ×2 (03:22)
[2021-11-05] MEDS ORDERED: PIPERACILLIN/TAZOB 3.375 GM 3.375 GM in DEXTROSE 5%-WATER - 50 ML IVPB SCH (03:30)
[2021-11-05] MEDS ORDERED: diazePAM CARPU-JECT 10 MG/2 ML DISP.SYRIN ONE ×2 (03:40→04:08)
[2021-11-05] MEDS ORDERED: VANCOMYCIN 1 GM in D5W (PRE-DOCKED) 1,000 MG/250 ML IVPB SCH ×2 (04:00→10:00)
[2021-11-05] MEDS ORDERED: RAPID SEQUENCE INTUBATION KIT NR ONE (04:02)
[2021-11-05] MEDS ORDERED: dilTIAZem HCL 125 MG/25 ML - 25 ML VIAL ONE (04:34)
[2021-11-05] MEDS ORDERED: MIDAZOLAM IN 0.9 % SOD.CHLORID 1 MG/1 ML PLAST..BAG ONE (04:40)
[2021-11-05] MEDS ORDERED: MIDAZOLAM IN 0.9 % SOD.CHLORID 100 MG/100 ML PLAST..BAG IVPB SCH (05:00)
[2021-11-05] MEDS ORDERED: ROCURONIUM BROMIDE 50 MG/5 ML VIAL IVPUSH ONE (05:02)
[2021-11-05] MEDS ORDERED: ETOMIDATE 40 MG/20 ML VIAL IVPUSH ONE (05:02)
[2021-11-05] MEDS ORDERED: ATORVASTATIN CA 80 MG TABLET (FP) PO ONE (05:04)
[2021-11-05] MEDS: PROPOFOL 1,000,000 MCG/100 ML VIAL IVPB SCH ×2 (05:30→16:30)
[2021-11-05 05:45] LABS: ARTERIAL BLD GAS O2 SATURATION 97.8 % (95-98); ARTERIAL BLOOD GAS BASE EXCESS 2.1 mmol/L (-2-2); ARTERIAL BLOOD GAS PO2 97.5 mmHg (80-100); ARTERIAL BLOOD GAS pH 7.474 (7.350-7.450)
[2021-11-05 05:46] LABS: ALLENS TEST POSITIVE
[2021-11-05 05:47] LABS: VENT MODE A/C; VENT RATE 12
[2021-11-05] MEDS: diazePAM CARPU-JECT 10 MG/2 ML DISP.SYRIN IVPUSH SCH ×3 (06:00→18:17)
[2021-11-05 06:11] LABS: HEMATOCRIT 39.4 % (32.4-45.2); HEMOGLOBIN 13.5 GM/dL (10.7-15.3); MCHC 34.2 g/dl (32.0-36.0); MEAN CELL VOLUME 99.5 fl (80-96); MEAN PLT VOLUME 9.8 fl (7.5-11.1); PLATELET COUNT 48 10^3/uL (134-434); RBC 3.96 M/mm3 (3.60-5.2); RDW 16.3 % (11.6-15.6); WHITE BLOOD COUNT 6.5 K/mm3 (4.0-10.0)
[2021-11-05 06:31] LABS: CHLORIDE 96 mmol/L (98-107); SODIUM 135 mmol/L (136-145)
[2021-11-05 06:33] LABS: BLOOD UREA NITROGEN 9.8 mg/dL (7-18); CALCIUM 7.8 mg/dL (8.5-10.1); GLUCOSE,RANDOM 184 mg/dL (74-106)
[2021-11-05 06:34] LABS: ALBUMIN 3.4 g/dl (3.4-5.0); CO2 28 mmol/L (21-32); MAGNESIUM 1.6 mg/dL (1.8-2.4)
[2021-11-05 06:35] LABS: EPI CELLS 4 /uL (0-25.1); HYALINE CASTS 11 /uL (0-3.1); PH,URINE 5.5 (5.0-8.0); URINE APPEARANCE CLOUDY; URINE BACTERIA >9,000 /uL (0-1359); URINE BILIRUBIN 1+ (NEGATIVE); URINE COLOR DK YELLOW; URINE GLUCOSE (UA) NEGATIVE (NEGATIVE); URINE KETONE TRACE (NEGATIVE); URINE LEUK ESTERASE 1+ (NEGATIVE); URINE NITRITE NEGATIVE (NEGATIVE); URINE PROTEIN 2+ (NEGATIVE); URINE RBC 31 /uL (0-23.9); URINE WBC 466 /uL (0-25.8)
[2021-11-05 06:36] LABS: CHOLESTEROL 189 mg/dL (50-200); TRIGLYCERIDES 139 mg/dL (0-150)
[2021-11-05 06:36] LABS: METHADONE, UR NEGATIVE (NEGATIVE); OPIATES, URI NEGATIVE (NEGATIVE); PHENCYCLIDINE,URINE NEGATIVE (NEGATIVE); URINE BARBITURATES NEGATIVE (NEGATIVE)
[2021-11-05 06:37] LABS: CREATININE 0.8 mg/dL (0.55-1.3); LDL CHOLESTEROL (ONLY SJRH) 90 mg/dL (5-100); SGOT/AST 380 U/L (15-37); SGPT/ALT 64 U/L (13-61)
[2021-11-05 06:38] LABS: BILIRUBIN,TOTAL 4.7 mg/dL (0.2-1)
[2021-11-05 06:39] LABS: HDL CHOLESTEROL 87 mg/dL (40-60); TOT PROT 7.5 g/dl (6.4-8.2)
[2021-11-05 06:43] LABS: COCAINE, UR NEGATIVE (NEGATIVE); URINE AMPHETAMINES NEGATIVE (NEGATIVE); URINE BENZODIAZEPINES POSITIVE (NEGATIVE)
[2021-11-05] MEDS: INSULIN SLIDING SCALE (NOVOLOG) 1 VIAL SQ SCH ×4 (06:44→21:31)
[2021-11-05 06:57] LABS: ALK PHOS 199 U/L (45-117); ANION GAP 11 MMOL/L (8-16); PHOSPHOROUS 1.1 mg/dL (2.5-4.9)
[2021-11-05] MEDS ORDERED: SODIUM CHLORIDE 0.9% 500 ML INFUS.BAG IV ONE (06:59)
[2021-11-05] MEDS ORDERED: NAPH,MB-DB/K PH,MBDB POWDER PACKET PO ONE (07:05)
[2021-11-05] MEDS: FENTANYL NS IVPB 500 MCG/100 ML BAG IVPB SCH (07:09)
[2021-11-05] MEDS ORDERED: PIPERACILLIN/TAZOBACTAM 3.375 GM VIAL IVPB ONE ×2 (07:58→16:23)
[2021-11-05] MEDS ORDERED: DEXTROSE 5%-WATER - 50 ML IVPB ONE ×2 (07:59→16:24)
[2021-11-05] MEDS: THIAMINE HCL 200 MG/2 ML VIAL IVPB SCH ×3 (08:39→18:16)
[2021-11-05] MEDS: DEXTROSE 5%-NORMAL SALINE 1,000 ML IV SCH (08:39)
[2021-11-05] MEDS ORDERED: PNEUMOC 13-VAL CONJ-DIP CRM/PF 0.5 ML DISP.SYRIN IM ONE (09:00)
[2021-11-05 09:01] LABS: ANISOCYTOSIS 0; HELMET CELLS 0; HOWELL-JOLLY BODIES 0; MACROCYTOSIS 0; OVALOCYTE 0; ROULEAU 0; SICKELED CELLS 0; TARGET CELLS 0; TEAR DROP CELLS 0; TOXIC GRANULATION 0
[2021-11-05 09:28] LABS: BILIRUBIN,DIRECT 3.1 mg/dL (0.0-0.2)
[2021-11-05] MEDS ORDERED: MULTIVIT INJ. ADULT COMBO WITH VIT K 1 COMBO 10 ML VIAL IV SCH (10:00)
[2021-11-05] MEDS ORDERED: THIAMINE HCL 100 MG TABLET (FP) PO SCH (10:00)
[2021-11-05] MEDS: PANTOPRAZOLE SODIUM 40 MG VIAL IVPUSH SCH (10:09)
[2021-11-05] MEDS: MUPIROCIN 2% TOPICAL OINTMENT FOR DECOLONIZATION NS SCH ×2 (10:09→21:34)
[2021-11-05 11:08] LABS: SARS-CoV-2 NAA Not Detected (Not Detected)
[2021-11-05] MEDS ORDERED: ACETAMINOPHEN 1000 MG/100 ML BAG IVPB ONE ×2 (13:45→23:00)
[2021-11-05] MEDS: MULTIVIT-MINERALS ORAL LIQUID PO SCH (14:46)
[2021-11-05] MEDS: FOLIC ACID 1 MG TABLET (FP) PO SCH (14:51)
[2021-11-05 15:01] VITALS: BMI 23.4
[2021-11-05 16:32] LABS: CHLORIDE 101 mmol/L (98-107); SODIUM 135 mmol/L (136-145)
[2021-11-05 16:34] LABS: ANION GAP 8 MMOL/L (8-16); CO2 26 mmol/L (21-32); GLUCOSE,RANDOM 161 mg/dL (74-106)
[2021-11-05 16:38] LABS: CREATININE 0.7 mg/dL (0.55-1.3); SGOT/AST 247 U/L (15-37); SGPT/ALT 52 U/L (13-61)
[2021-11-05 16:39] LABS: BILIRUBIN,TOTAL 3.7 mg/dL (0.2-1)
[2021-11-05 16:49] LABS: ALBUMIN 2.5 g/dl (3.4-5.0); ALK PHOS 125 U/L (45-117); CALCIUM 6.7 mg/dL (8.5-10.1)
[2021-11-05] MEDS: PIPERACILLIN/TAZOB 3.375 GM 3.375 GM in DEXTROSE 5%-WATER - 50 ML IVPB SCH (17:16)
[2021-11-05] MEDS ORDERED: THIAMINE HCL 200 MG/2 ML VIAL IM SCH (18:30)
[2021-11-05] MEDS: CHLORHEXIDINE GLUCONATE 4% CLEANSER FOR DECOLONIZATION TP SCH (21:31)
[2021-11-05] MEDS: ATORVASTATIN CA 40 MG TABLET (FP) PO SCH (21:31)
[2021-11-06] MEDS ORDERED: PIPERACILLIN/TAZOBACTAM 3.375 GM VIAL IVPB ONE ×2 (01:46→08:31)
[2021-11-06] MEDS ORDERED: DEXTROSE 5%-WATER - 50 ML IVPB ONE ×2 (01:46→08:31)
[2021-11-06] MEDS: PIPERACILLIN/TAZOB 3.375 GM 3.375 GM in DEXTROSE 5%-WATER - 50 ML IVPB SCH ×2 (01:58→09:05)
[2021-11-06] MEDS ORDERED: PIPERACILLIN/TAZOB 3.375 GM 3.375 GM in DEXTROSE 5%-WATER - 50 ML IVPB SCH (02:00)
[2021-11-06] MEDS ORDERED: VANCOMYCIN 1 GM in D5W (PRE-DOCKED) 1,000 MG/250 ML IVPB SCH (04:00)
[2021-11-06] MEDS: DEXTROSE 5%-NORMAL SALINE 1,000 ML IV SCH ×3 (05:00→19:51)
[2021-11-06] MEDS ORDERED: LORazepam 1 MG TABLET PO SCH (05:00)
[2021-11-06] MEDS: PROPOFOL 1,000,000 MCG/100 ML VIAL IVPB SCH ×4 (06:58→17:27)
[2021-11-06] MEDS: INSULIN SLIDING SCALE (NOVOLOG) 1 VIAL SQ SCH ×4 (06:59→21:25)
[2021-11-06] MEDS: FENTANYL NS IVPB 500 MCG/100 ML BAG IVPB SCH (07:02)
[2021-11-06 07:19] LABS: INR 2.32 (0.83-1.09); PROTHROMBIN TIME (PATIENT) 26.9 SEC (9.7-13.0)
[2021-11-06 07:21] LABS: ACTIVATED PTT 32.3 SECONDS (25.2-36.5)
[2021-11-06 07:27] LABS: BASO % 0.1 % (0-2.0); HEMATOCRIT 35.9 % (32.4-45.2); HEMOGLOBIN 12.1 GM/dL (10.7-15.3); LYMPH % 8.2 % (8-40); MCH 33.9 pg (25.7-33.7); MCHC 33.9 g/dl (32.0-36.0); MEAN CELL VOLUME 100.1 fl (80-96); MEAN PLT VOLUME 10.3 fl (7.5-11.1); MONO % 8.2 % (3.8-10.2); NEUT % 78.5 % (42.8-82.8); RBC 3.58 M/mm3 (3.60-5.2); RDW 16.2 % (11.6-15.6); WHITE BLOOD COUNT 5.1 K/mm3 (4.0-10.0)
[2021-11-06 07:30] LABS: CHLORIDE 117 mmol/L (98-107); SODIUM 143 mmol/L (136-145)
[2021-11-06 07:32] LABS: BLOOD UREA NITROGEN 9.2 mg/dL (7-18); CO2 19 mmol/L (21-32)
[2021-11-06 07:34] LABS: PLATELET COUNT 30 10^3/uL (134-434)
[2021-11-06 07:35] LABS: SGOT/AST 135 U/L (15-37); SGPT/ALT 34 U/L (13-61)
[2021-11-06 07:37] LABS: BILIRUBIN,TOTAL 2.8 mg/dL (0.2-1)
[2021-11-06 07:47] LABS: ALBUMIN 1.5 g/dl (3.4-5.0); ALK PHOS 78 U/L (45-117); ANION GAP 7 MMOL/L (8-16); GLUCOSE,RANDOM 1475 mg/dL (74-106); PHOSPHOROUS 0.6 mg/dL (2.5-4.9); TOT PROT 3.8 g/dl (6.4-8.2)
[2021-11-06] MEDS ORDERED: ACETAMINOPHEN 1000 MG/100 ML BAG IVPB ONE (08:30)
[2021-11-06] MEDS: PANTOPRAZOLE SODIUM 40 MG VIAL IVPUSH SCH (09:02)
[2021-11-06] MEDS: FOLIC ACID 1 MG TABLET (FP) PO SCH (09:21)
[2021-11-06] MEDS: MULTIVIT-MINERALS ORAL LIQUID PO SCH (09:25)
[2021-11-06] MEDS: MUPIROCIN 2% TOPICAL OINTMENT FOR DECOLONIZATION NS SCH ×2 (09:26→21:26)
[2021-11-06 09:29] LABS: ANISOCYTOSIS 1+; MACROCYTOSIS 1+
[2021-11-06 09:45] LABS: BASO % 0.2 % (0-2.0); EOS % 2.8 % (0-4.5); LYMPH % 9.2 % (8-40); MCHC 34.1 g/dl (32.0-36.0); MEAN CELL VOLUME 99.5 fl (80-96); MEAN PLT VOLUME 9.6 fl (7.5-11.1); MONO % 6.2 % (3.8-10.2); NEUT % 81.6 % (42.8-82.8); RBC 3.81 M/mm3 (3.60-5.2); RDW 16.3 % (11.6-15.6); WHITE BLOOD COUNT 3.9 K/mm3 (4.0-10.0)
[2021-11-06 10:01] LABS: CHLORIDE 99 mmol/L (98-107); SODIUM 132 mmol/L (136-145)
[2021-11-06 10:04] LABS: ANION GAP 11 MMOL/L (8-16); CO2 23 mmol/L (21-32); GLUCOSE,RANDOM 167 mg/dL (74-106); MAGNESIUM 1.5 mg/dL (1.8-2.4)
[2021-11-06 10:07] LABS: BILIRUBIN,DIRECT 4.2 mg/dL (0.0-0.2); CREATININE 0.8 mg/dL (0.55-1.3); SGOT/AST 252 U/L (15-37); SGPT/ALT 62 U/L (13-61)
[2021-11-06 10:08] LABS: BILIRUBIN,TOTAL 5.7 mg/dL (0.2-1)
[2021-11-06 10:10] LABS: PLATELET COUNT 31 10^3/uL (134-434)
[2021-11-06 10:18] LABS: ANISOCYTOSIS 0; HELMET CELLS 0; HOWELL-JOLLY BODIES 0; MACROCYTOSIS 0; OVALOCYTE 0; ROULEAU 0; SICKELED CELLS 0; TARGET CELLS 0; TEAR DROP CELLS 0; TOXIC GRANULATION 0
[2021-11-06 10:27] LABS: ALBUMIN 2.8 g/dl (3.4-5.0); ALK PHOS 154 U/L (45-117); PHOSPHOROUS 0.8 mg/dL (2.5-4.9)
[2021-11-06] MEDS ORDERED: PHYTONADIONE 5 MG TABLET PO ONE (10:57)
[2021-11-06] MEDS ORDERED: MAGNESIUM 1GM/D5W 100ML - 100 ML IVPB IVPB ONE (11:00)
[2021-11-06] MEDS ORDERED: POTASSIUM PHOSPHATE 30 MM in SODIUM CHLORIDE 250 ML IVPB ONE (11:15)
[2021-11-06] MEDS ORDERED: MEROPENEM 1 GM VIAL (RESTRICTED TO ID) IVPB ONE ×2 (13:46→17:07)
[2021-11-06] MEDS ORDERED: DEXTROSE 5%-WATER 100 ML IVPB ONE ×2 (13:47→17:07)
[2021-11-06] MEDS: MEROPENEM 1 GM in DEXTROSE 5%-WATER 100 ML IVPB SCH ×2 (13:49→17:16)
[2021-11-06] MEDS: PHYTONADIONE 5 MG TABLET PO SCH (15:32)
[2021-11-06 17:47] LABS: HIV INTERPRETATION NEGATIVE (NEGATIVE)
[2021-11-06] MEDS: THIAMINE HCL 200 MG/2 ML VIAL IVPB SCH (17:53)
[2021-11-06] MEDS ORDERED: THIAMINE HCL 200 MG/2 ML VIAL IM SCH (18:30)
[2021-11-06 19:36] LABS: CHLORIDE 101 mmol/L (98-107); SODIUM 135 mmol/L (136-145)
[2021-11-06 19:38] LABS: ANION GAP 10 MMOL/L (8-16); BLOOD UREA NITROGEN 13.3 mg/dL (7-18); CO2 24 mmol/L (21-32); GLUCOSE,RANDOM 176 mg/dL (74-106)
[2021-11-06 19:41] LABS: CREATININE 0.7 mg/dL (0.55-1.3)
[2021-11-06 19:50] LABS: CALCIUM 6.9 mg/dL (8.5-10.1)
[2021-11-06] MEDS: CHLORHEXIDINE GLUCONATE 4% CLEANSER FOR DECOLONIZATION TP SCH (21:26)
[2021-11-06] MEDS: ATORVASTATIN CA 40 MG TABLET (FP) PO SCH (21:28)
[2021-11-07] MEDS ORDERED: LORazepam 0.5 MG TABLET PO PRN
[2021-11-07] MEDS ORDERED: DEXTROSE 5%-WATER 100 ML IVPB ONE ×2 (00:38→09:04)
[2021-11-07] MEDS ORDERED: MEROPENEM 1 GM VIAL (RESTRICTED TO ID) IVPB ONE ×2 (00:38→09:04)
[2021-11-07] MEDS: MEROPENEM 1 GM in DEXTROSE 5%-WATER 100 ML IVPB SCH ×2 (01:40→10:00)
[2021-11-07] MEDS: PROPOFOL 1,000,000 MCG/100 ML VIAL IVPB SCH ×3 (04:00→19:38)
[2021-11-07] MEDS ORDERED: MIDAZOLAM HCL 2 MG/2 ML SINGLE DOSE VIAL IVPUSH ONE (04:14)
[2021-11-07] MEDS ORDERED: diazePAM CARPU-JECT 10 MG/2 ML DISP.SYRIN IVPUSH ONE (04:48)
[2021-11-07] MEDS ORDERED: LORazepam 0.5 MG TABLET PO SCH (05:00)
[2021-11-07] MEDS ORDERED: ADENOSINE 6 MG/2 ML VIAL IVPUSH ONE ×9 (05:04→07:07)
[2021-11-07] MEDS ORDERED: ACETAMINOPHEN 1000 MG/100 ML BAG IVPB ONE (05:23)
[2021-11-07 05:58] LABS: ARTERIAL BLD GAS O2 SATURATION 97.5 % (95-98); ARTERIAL BLOOD GAS BASE EXCESS -1.6 mmol/L (-2-2); ARTERIAL BLOOD GAS PO2 98.1 mmHg (80-100); ARTERIAL BLOOD GAS pH 7.403 (7.350-7.450)
[2021-11-07 06:00] LABS: ALLENS TEST POSITIVE; VENT MODE A/C; VENT RATE 12
[2021-11-07] MEDS: FENTANYL NS IVPB 500 MCG/100 ML BAG IVPB SCH ×4 (06:48→17:08)
[2021-11-07] MEDS ORDERED: LACTATED RINGERS SOLUTION 1,000 ML/1,000 ML INFUS.BAG IV STA (06:48)
[2021-11-07] MEDS: INSULIN SLIDING SCALE (NOVOLOG) 1 VIAL SQ SCH ×4 (07:13→21:46)
[2021-11-07 08:09] LABS: HEMATOCRIT 34.2 % (32.4-45.2); HEMOGLOBIN 11.7 GM/dL (10.7-15.3); MCHC 34.2 g/dl (32.0-36.0); MEAN CELL VOLUME 99.4 fl (80-96); MEAN PLT VOLUME 9.5 fl (7.5-11.1); RBC 3.44 M/mm3 (3.60-5.2); RDW 16.5 % (11.6-15.6); WHITE BLOOD COUNT 2.6 K/mm3 (4.0-10.0)
[2021-11-07 08:10] LABS: CHLORIDE 101 mmol/L (98-107); SODIUM 136 mmol/L (136-145)
[2021-11-07 08:18] LABS: ACTIVATED PTT 30.4 SECONDS (25.2-36.5); INR 1.5 (0.83-1.09); PROTHROMBIN TIME (PATIENT) 17.3 SEC (9.7-13.0)
[2021-11-07 08:20] LABS: BLOOD UREA NITROGEN 13.1 mg/dL (7-18); CO2 26 mmol/L (21-32); GLUCOSE,RANDOM 142 mg/dL (74-106); MAGNESIUM 1.7 mg/dL (1.8-2.4)
[2021-11-07 08:23] LABS: CREATININE 0.7 mg/dL (0.55-1.3); PHOSPHOROUS 1.4 mg/dL (2.5-4.9); SGOT/AST 174 U/L (15-37); SGPT/ALT 46 U/L (13-61)
[2021-11-07 08:24] LABS: BILIRUBIN,TOTAL 5.5 mg/dL (0.2-1)
[2021-11-07 08:25] LABS: TOT PROT 5.7 g/dl (6.4-8.2)
[2021-11-07 08:27] LABS: ALBUMIN 2.2 g/dl (3.4-5.0); ALK PHOS 216 U/L (45-117); ANION GAP 9 MMOL/L (8-16); CALCIUM 6.7 mg/dL (8.5-10.1)
[2021-11-07 08:32] LABS: PLATELET COUNT 24 10^3/uL (134-434)
[2021-11-07] MEDS ORDERED: NAPH,MB-DB/K PH,MBDB POWDER PACKET PO ONE (09:00)
[2021-11-07] MEDS ORDERED: MAGNESIUM 1GM/D5W 100ML - 100 ML IVPB IVPB ONE (09:00)
[2021-11-07] MEDS ORDERED: POTASSIUM PHOSPHATE 30 MM in SODIUM CHLORIDE 500 ML IVPB ONE (09:15)
[2021-11-07 09:36] LABS: ANISOCYTOSIS 0; HELMET CELLS 0; HOWELL-JOLLY BODIES 0; MACROCYTOSIS 0; OVALOCYTE 0; ROULEAU 0; SICKELED CELLS 0; TARGET CELLS 0; TEAR DROP CELLS 0; TOXIC GRANULATION 0
[2021-11-07] MEDS: KCL 10 MEQ IVPB 10 MEQ/100 ML INFUS.BAG IVPB SCH ×3 (09:55→11:55)
[2021-11-07] MEDS ORDERED: PHYTONADIONE 5 MG TABLET PO SCH (10:00)
[2021-11-07] MEDS ORDERED: METOPROLOL TARTRATE 25 MG TABLET (FP) PO SCH (10:00)
[2021-11-07] MEDS: FOLIC ACID 1 MG TABLET (FP) PO SCH (10:00)
[2021-11-07] MEDS: MULTIVIT-MINERALS ORAL LIQUID PO SCH (10:00)
[2021-11-07] MEDS: PHYTONADIONE 5 MG TABLET PO SCH (10:00)
[2021-11-07] MEDS: THIAMINE HCL 200 MG/2 ML VIAL IVPB SCH (10:01)
[2021-11-07] MEDS: PANTOPRAZOLE SODIUM 40 MG VIAL IVPUSH SCH (10:01)
[2021-11-07] MEDS ORDERED: MIDAZOLAM HCL 10 MG/10 ML VIAL IVPUSH PRN (10:31)
[2021-11-07] MEDS ORDERED: MAGNESIUM SULF 50% (8.12 MEQ/2 ML-1 GM VIAL) IVPB ONE ×2 (10:32→11:43)
[2021-11-07] MEDS ORDERED: LACTATED RINGERS SOLUTION 1000 ML INFUS.BAG IV ONE (10:36)
[2021-11-07] MEDS ORDERED: MIDAZOLAM HCL 2 MG/2 ML SINGLE DOSE VIAL IVPUSH PRN (10:46)
[2021-11-07] MEDS: MUPIROCIN 2% TOPICAL OINTMENT FOR DECOLONIZATION NS SCH ×2 (10:55→21:16)
[2021-11-07 11:29] LABS: CHLORIDE 102 mmol/L (98-107); SODIUM 137 mmol/L (136-145)
[2021-11-07 11:32] LABS: ANION GAP 11 MMOL/L (8-16); BLOOD UREA NITROGEN 11.9 mg/dL (7-18); CO2 23 mmol/L (21-32); GLUCOSE,RANDOM 126 mg/dL (74-106); MAGNESIUM 1.6 mg/dL (1.8-2.4)
[2021-11-07 11:35] LABS: PHOSPHOROUS 1.7 mg/dL (2.5-4.9)
[2021-11-07 11:36] LABS: CREATININE 0.8 mg/dL (0.55-1.3); SGOT/AST 191 U/L (15-37); SGPT/ALT 50 U/L (13-61)
[2021-11-07 11:37] LABS: BILIRUBIN,TOTAL 5.9 mg/dL (0.2-1)
[2021-11-07 12:01] LABS: ALK PHOS 249 U/L (45-117); CALCIUM 6.5 mg/dL (8.5-10.1)
[2021-11-07] MEDS: DEXTROSE 5%-NORMAL SALINE 1,000 ML IV SCH (12:30)
[2021-11-07] MEDS ORDERED: NOREPINEPHRINE BITARTRATE 4 MG/4 ML ML IV ONE (12:57)
[2021-11-07] MEDS ORDERED: VASOPRESSIN 20 UNITS/ML VIAL IV ONE (13:00)
[2021-11-07] MEDS: VASOPRESSIN 40 UNITS/100 ML BAG IV SCH ×2 (13:40→21:37)
[2021-11-07] MEDS: NOREPINEPHRINE D5W PREMIX 16,000 MCG/500 ML BAG IVPB SCH (13:40)
[2021-11-07 13:46] LABS: CHLORIDE 106 mmol/L (98-107); SODIUM 139 mmol/L (136-145)
[2021-11-07 13:48] LABS: ANION GAP 10 MMOL/L (8-16); BLOOD UREA NITROGEN 12.6 mg/dL (7-18); CO2 23 mmol/L (21-32); GLUCOSE,RANDOM 127 mg/dL (74-106)
[2021-11-07 13:49] LABS: MAGNESIUM 1.3 mg/dL (1.8-2.4)
[2021-11-07 13:51] LABS: CREATININE 0.6 mg/dL (0.55-1.3)
[2021-11-07] MEDS: METOPROLOL TARTRATE 25 MG TABLET (FP) PO SCH ×2 (14:25→21:16)
[2021-11-07] MEDS: D5-NS + 20 MEQ KCL - 20 MEQ/1,000 ML INFUS.BAG IV SCH (16:00)
[2021-11-07] MEDS: CALCIUM CARBONATE SUSPENSION - 1250 MG/5 ML ML NGT SCH ×2 (16:29→22:04)
[2021-11-07] MEDS ORDERED: CEFAZOLIN 2 GM in DEXTROSE 5%-WATER - 50 ML IVPB SCH (18:00)
[2021-11-07] MEDS: HYDROCORTISONE SOD SUCCINATE 100 MG/2 ML VIAL IVPUSH SCH (18:49)
[2021-11-07 19:26] LABS: CHLORIDE 102 mmol/L (98-107); SODIUM 135 mmol/L (136-145)
[2021-11-07 19:29] LABS: ALBUMIN 2.2 g/dl (3.4-5.0); ANION GAP 9 MMOL/L (8-16); BLOOD UREA NITROGEN 14.7 mg/dL (7-18); CO2 23 mmol/L (21-32); GLUCOSE,RANDOM 184 mg/dL (74-106); MAGNESIUM 3.3 mg/dL (1.8-2.4)
[2021-11-07 19:32] LABS: PHOSPHOROUS 4.5 mg/dL (2.5-4.9); SGOT/AST 182 U/L (15-37); SGPT/ALT 47 U/L (13-61)
[2021-11-07 19:33] LABS: BILIRUBIN,TOTAL 5.6 mg/dL (0.2-1); TOT PROT 5.6 g/dl (6.4-8.2)
[2021-11-07 19:34] LABS: ALK PHOS 248 U/L (45-117)
[2021-11-07 19:35] LABS: CALCIUM 6.3 mg/dL (8.5-10.1)
[2021-11-07] MEDS ORDERED: POTASSIUM CHLORIDE ORAL LIQUID 20 MEQ/15 ML PO ONE (20:27)
[2021-11-07] MEDS: FLUDROCORTISONE ACETATE 0.1 MG TABLET (FP) PO SCH (20:59)
[2021-11-07] MEDS: ATORVASTATIN CA 40 MG TABLET (FP) PO SCH (21:16)
[2021-11-07] MEDS: CHLORHEXIDINE GLUCONATE 4% CLEANSER FOR DECOLONIZATION TP SCH (21:17)
[2021-11-08] MEDS: HYDROCORTISONE SOD SUCCINATE 100 MG/2 ML VIAL IVPUSH SCH ×4 (01:16→18:06)
[2021-11-08] MEDS: CEFAZOLIN 2 GM in DEXTROSE 5%-WATER - 100 ML IVPB SCH ×2 (01:55→10:04)
[2021-11-08] MEDS ORDERED: LORazepam 0.5 MG TABLET PO ONE (05:00)
[2021-11-08] MEDS: METOPROLOL TARTRATE 25 MG TABLET (FP) PO SCH ×3 (06:07→21:35)
[2021-11-08] MEDS: FENTANYL NS IVPB 500 MCG/100 ML BAG IVPB SCH ×5 (06:07→16:44)
[2021-11-08] MEDS: PROPOFOL 1,000,000 MCG/100 ML VIAL IVPB SCH ×3 (06:10→16:39)
[2021-11-08] MEDS: VASOPRESSIN 40 UNITS/100 ML BAG IV SCH ×2 (06:48→16:54)
[2021-11-08 06:52] LABS: HEMATOCRIT 31.1 % (32.4-45.2); MCH 35.5 pg (25.7-33.7); MCHC 35.5 g/dl (32.0-36.0); RBC 3.11 M/mm3 (3.60-5.2); WHITE BLOOD COUNT 5.6 K/mm3 (4.0-10.0)
[2021-11-08] MEDS: INSULIN SLIDING SCALE (NOVOLOG) 1 VIAL SQ SCH ×4 (06:56→21:35)
[2021-11-08 07:00] LABS: PLATELET COUNT 34 10^3/uL (134-434)
[2021-11-08] MEDS: D5-NS + 20 MEQ KCL - 20 MEQ/1,000 ML INFUS.BAG IV SCH (07:04)
[2021-11-08 07:05] LABS: INR 1.38 (0.83-1.09); PROTHROMBIN TIME (PATIENT) 15.9 SEC (9.7-13.0)
[2021-11-08 07:13] LABS: CHLORIDE 102 mmol/L (98-107); SODIUM 133 mmol/L (136-145)
[2021-11-08 07:22] LABS: ALBUMIN 2.2 g/dl (3.4-5.0); ANION GAP 9 MMOL/L (8-16); BLOOD UREA NITROGEN 18.5 mg/dL (7-18); CO2 22 mmol/L (21-32); GLUCOSE,RANDOM 279 mg/dL (74-106); MAGNESIUM 2.8 mg/dL (1.8-2.4)
[2021-11-08 07:25] LABS: CREATININE 1.3 mg/dL (0.55-1.3); SGPT/ALT 46 U/L (13-61)
[2021-11-08 07:26] LABS: SGOT/AST 190 U/L (15-37)
[2021-11-08 07:27] LABS: BILIRUBIN,TOTAL 5.7 mg/dL (0.2-1); PHOSPHOROUS 3.8 mg/dL (2.5-4.9); TOT PROT 5.8 g/dl (6.4-8.2)
[2021-11-08 07:28] LABS: ALK PHOS 252 U/L (45-117)
[2021-11-08 07:29] LABS: CALCIUM 6.1 mg/dL (8.5-10.1)
[2021-11-08] MEDS: FLUDROCORTISONE ACETATE 0.1 MG TABLET (FP) PO SCH (10:00)
[2021-11-08] MEDS: PANTOPRAZOLE SODIUM 40 MG VIAL IVPUSH SCH (10:00)
[2021-11-08] MEDS: FOLIC ACID 1 MG TABLET (FP) PO SCH (10:01)
[2021-11-08] MEDS: PHYTONADIONE 5 MG TABLET PO SCH (10:01)
[2021-11-08] MEDS: CALCIUM CARBONATE SUSPENSION - 1250 MG/5 ML ML NGT SCH ×2 (10:02→21:34)
[2021-11-08] MEDS: MULTIVIT-MINERALS ORAL LIQUID PO SCH (10:03)
[2021-11-08] MEDS: MUPIROCIN 2% TOPICAL OINTMENT FOR DECOLONIZATION NS SCH ×2 (10:05→21:31)
[2021-11-08 10:56] LABS: ANISOCYTOSIS 0; HELMET CELLS 0; HOWELL-JOLLY BODIES 0; MACROCYTOSIS 0; OVALOCYTE 0; ROULEAU 0; SICKELED CELLS 0; TARGET CELLS 0; TEAR DROP CELLS 0; TOXIC GRANULATION 0
[2021-11-08] MEDS: THIAMINE HCL 200 MG/2 ML VIAL IVPB SCH (11:14)
[2021-11-08] MEDS: LACTATED RINGERS SOLUTION 1,000 ML/1,000 ML INFUS.BAG IV SCH (11:16)
[2021-11-08] MEDS: NOREPINEPHRINE D5W PREMIX 16,000 MCG/500 ML BAG IVPB SCH (13:29)
[2021-11-08] MEDS ORDERED: CALCIUM GLUCONATE 10% - 1,000 MG/10 ML VIAL IVPB ONE (15:29)
[2021-11-08] MEDS ORDERED: SODIUM CHLORIDE 1,000 ML IV ONE (17:15)
[2021-11-08] MEDS: CEFAZOLIN 2 GM in SODIUM CHLORIDE 100 ML IVPB SCH (18:07)
[2021-11-08] MEDS: CHLORHEXIDINE GLUCONATE 4% CLEANSER FOR DECOLONIZATION TP SCH (21:32)
[2021-11-08] MEDS: ATORVASTATIN CA 40 MG TABLET (FP) PO SCH (21:34)
[2021-11-09] MEDS: HYDROCORTISONE SOD SUCCINATE 100 MG/2 ML VIAL IVPUSH SCH ×3 (01:51→12:30)
[2021-11-09] MEDS: CEFAZOLIN 2 GM in SODIUM CHLORIDE 100 ML IVPB SCH ×2 (02:47→10:49)
[2021-11-09] MEDS: METOPROLOL TARTRATE 25 MG TABLET (FP) PO SCH ×2 (06:14→14:32)
[2021-11-09] MEDS: INSULIN SLIDING SCALE (NOVOLOG) 1 VIAL SQ SCH ×3 (06:14→22:35)
[2021-11-09] MEDS: PROPOFOL 1,000,000 MCG/100 ML VIAL IVPB SCH (06:41)
[2021-11-09] MEDS: FENTANYL NS IVPB 500 MCG/100 ML BAG IVPB SCH ×3 (06:43→13:00)
[2021-11-09 07:57] LABS: CHLORIDE 102 mmol/L (98-107); SODIUM 132 mmol/L (136-145)
[2021-11-09 08:03] LABS: ALBUMIN 2.3 g/dl (3.4-5.0); ANION GAP 9 MMOL/L (8-16); BLOOD UREA NITROGEN 29.8 mg/dL (7-18); CO2 22 mmol/L (21-32); GLUCOSE,RANDOM 219 mg/dL (74-106); MAGNESIUM 2.8 mg/dL (1.8-2.4)
[2021-11-09 08:06] LABS: CREATININE 2.1 mg/dL (0.55-1.3); SGOT/AST 239 U/L (15-37)
[2021-11-09 08:07] LABS: SGPT/ALT 25 U/L (13-61)
[2021-11-09 08:10] LABS: BILIRUBIN,TOTAL 3.8 mg/dL (0.2-1); TOT PROT 6.3 g/dl (6.4-8.2)
[2021-11-09 08:11] LABS: HEMATOCRIT 31.2 % (32.4-45.2); HEMOGLOBIN 10.6 GM/dL (10.7-15.3); MCH 33.9 pg (25.7-33.7); MCHC 33.9 g/dl (32.0-36.0); MEAN CELL VOLUME 100.1 fl (80-96); MEAN PLT VOLUME 10.7 fl (7.5-11.1); PLATELET COUNT 58 10^3/uL (134-434); RBC 3.12 M/mm3 (3.60-5.2); RDW 16.8 % (11.6-15.6); WHITE BLOOD COUNT 7.8 K/mm3 (4.0-10.0)
[2021-11-09 08:29] LABS: ALK PHOS 409 U/L (45-117); CALCIUM 6.6 mg/dL (8.5-10.1)
[2021-11-09 09:23] LABS: INR 1.26 (0.83-1.09); PROTHROMBIN TIME (PATIENT) 14.5 SEC (9.7-13.0)
[2021-11-09 09:25] LABS: ACTIVATED PTT 29.6 SECONDS (25.2-36.5)
[2021-11-09] MEDS ORDERED: FUROSEMIDE 40 MG/4 ML INJECTABLE VIAL IVPUSH STA (10:04)
[2021-11-09] MEDS: PANTOPRAZOLE SODIUM 40 MG VIAL IVPUSH SCH (10:16)
[2021-11-09] MEDS: PHYTONADIONE 5 MG TABLET PO SCH (10:16)
[2021-11-09 10:17] LABS: ANISOCYTOSIS 0; HELMET CELLS 0; HOWELL-JOLLY BODIES 0; MACROCYTOSIS 0; OVALOCYTE 0; ROULEAU 0; SICKELED CELLS 0; TARGET CELLS 0; TEAR DROP CELLS 0; TOXIC GRANULATION 0
[2021-11-09] MEDS: FOLIC ACID 1 MG TABLET (FP) PO SCH (10:17)
[2021-11-09] MEDS: THIAMINE HCL 200 MG/2 ML VIAL IVPB SCH (10:17)
[2021-11-09] MEDS: CALCIUM CARBONATE SUSPENSION - 1250 MG/5 ML ML NGT SCH (10:17)
[2021-11-09] MEDS: FLUDROCORTISONE ACETATE 0.1 MG TABLET (FP) PO SCH (10:17)
[2021-11-09] MEDS: MUPIROCIN 2% TOPICAL OINTMENT FOR DECOLONIZATION NS SCH (10:18)
[2021-11-09] MEDS: MULTIVIT-MINERALS ORAL LIQUID PO SCH (10:22)
[2021-11-09] MEDS: LACTATED RINGERS SOLUTION 1,000 ML/1,000 ML INFUS.BAG IV SCH (11:30)
[2021-11-09] MEDS: VASOPRESSIN 40 UNITS/100 ML BAG IV SCH (13:00)
[2021-11-09] MEDS ORDERED: CALCIUM GLUCONATE 10% - 1,000 MG/10 ML VIAL IVPB ONE ×2 (14:00→14:05)
[2021-11-09] MEDS: NOREPINEPHRINE D5W PREMIX 16,000 MCG/500 ML BAG IVPB SCH (14:00)
[2021-11-09] MEDS ORDERED: MIDAZOLAM IN 0.9 % SOD.CHLORID 100 MG/100 ML PLAST..BAG IVPB SCH (14:45)
[2021-11-09] MEDS ORDERED: CEFAZOLIN 1 GM in DEXTROSE 5%-WATER - 1 GM/50 ML IVPB IVPB SCH (18:00)
[2021-11-09] MEDS: MORPHINE SULFATE/0.9% NACL/PF 100 MG/100 ML BAG IVPB SCH (18:31)
[2021-11-09] MEDS ORDERED: NOREPINEPHRINE BITARTRATE 16,000 MCG in SODIUM CHLORIDE 484 ML IV SCH (21:30)
[2021-11-10] MEDS: INSULIN SLIDING SCALE (NOVOLOG) 1 VIAL SQ SCH (06:26)
[2021-11-10] MEDS: MORPHINE SULFATE/0.9% NACL/PF 100 MG/100 ML BAG IVPB SCH (07:33)
[2021-11-10 07:45] LABS: BASO % 0.1 % (0-2.0); HEMATOCRIT 26.5 % (32.4-45.2); HEMOGLOBIN 8.9 GM/dL (10.7-15.3); LYMPH % 13.2 % (8-40); MCH 33.4 pg (25.7-33.7); MCHC 33.6 g/dl (32.0-36.0); MEAN CELL VOLUME 99.5 fl (80-96); MEAN PLT VOLUME 9.5 fl (7.5-11.1); MONO % 22.1 % (3.8-10.2); NEUT % 64.6 % (42.8-82.8); PLATELET COUNT 42 10^3/uL (134-434); RBC 2.66 M/mm3 (3.60-5.2); RDW 16.9 % (11.6-15.6); WHITE BLOOD COUNT 5.4 K/mm3 (4.0-10.0)
[2021-11-10 08:09] LABS: CHLORIDE 102 mmol/L (98-107); SODIUM 132 mmol/L (136-145)
[2021-11-10 08:17] LABS: ANION GAP 10 MMOL/L (8-16); BLOOD UREA NITROGEN 42.6 mg/dL (7-18); CO2 20 mmol/L (21-32); GLUCOSE,RANDOM 196 mg/dL (74-106)
[2021-11-10 08:18] LABS: MAGNESIUM 2.7 mg/dL (1.8-2.4)
[2021-11-10 08:20] LABS: PHOSPHOROUS 4.7 mg/dL (2.5-4.9); SGOT/AST 230 U/L (15-37); SGPT/ALT 8 U/L (13-61)
[2021-11-10 08:21] LABS: BILIRUBIN,TOTAL 2.7 mg/dL (0.2-1); TOT PROT 5.8 g/dl (6.4-8.2)
[2021-11-10 08:22] LABS: ALK PHOS 418 U/L (45-117)
[2021-11-10 08:24] LABS: CALCIUM 6.5 mg/dL (8.5-10.1)
[2021-11-10] MEDS: PANTOPRAZOLE SODIUM 40 MG VIAL IVPUSH SCH (10:17)
[2021-11-10 10:28] VITALS: TEMP 97.5
[2021-11-10 10:41] LABS: ANISOCYTOSIS 0; MACROCYTOSIS 0
[2021-11-10] MEDS ORDERED: LORazepam 2 MG/ML SDV VIAL IVPB PRN (12:05)
[2021-11-10 13:18] VITALS: BP 98/58; PULSE 57
== END 2021-11-10 13:07 | disposition expired | DRG 896 ==
LOC: JER 07:26 → JERBED 10:53 → JICU 11-05 04:18
PROVIDERS: ADMIT Internal Medicine; ATTEND Internal Medicine Pulmonary Disease
PROC: 30233R1 Transfusion of Nonautologous Platelets into Peripheral Vein, Percutaneous Approach (ICD-10-PCS; 2021-11-04)
PROC: 0BH17EZ Insertion of Endotracheal Airway into Trachea, Via Natural or Artificial Opening (ICD-10-PCS; principal; 2021-11-05)
PROC: 5A1955Z Respiratory Ventilation, Greater than 96 Consecutive Hours (ICD-10-PCS; 2021-11-05)
PROC: 05HM33Z Insertion of Infusion Device into Right Internal Jugular Vein, Percutaneous Approach (ICD-10-PCS; 2021-11-07)
PROC: B543ZZA Ultrasonography of Right Jugular Veins, Guidance (ICD-10-PCS; 2021-11-07)
DX: F10.231 Alcohol dependence with withdrawal delirium (principal); I63.9 Cerebral infarction, unspecified; J96.01 Acute respiratory failure with hypoxia; J18.9 Pneumonia, unspecified organism; A41.51 Sepsis due to Escherichia coli [E. coli]; R65.21 Severe sepsis with septic shock; I47.1 Supraventricular tachycardia; I24.8 Other forms of acute ischemic heart disease; D61.818 Other pancytopenia; D68.9 Coagulation defect, unspecified; K76.6 Portal hypertension; B19.10 Unspecified viral hepatitis B without hepatic coma; N39.0 Urinary tract infection, site not specified; N17.9 Acute kidney failure, unspecified; K70.40 Alcoholic hepatic failure without coma; K70.30 Alcoholic cirrhosis of liver without ascites; I95.9 Hypotension, unspecified; D69.6 Thrombocytopenia, unspecified; E78.5 Hyperlipidemia, unspecified; E03.9 Hypothyroidism, unspecified; E87.6 Hypokalemia; E83.51 Hypocalcemia; E83.39 Other disorders of phosphorus metabolism; E83.42 Hypomagnesemia; D72.819 Decreased white blood cell count, unspecified; K21.9 Gastro-esophageal reflux disease without esophagitis; E87.70 Fluid overload, unspecified
CPT/HCPCS: 36415; 36430; 36600; 70450-TC; 71045-TC-FY; 71046-TC-FY; 74018-TC-FY; 76705-TC; 80048; 80053; 80061; 80307; 81003; 82140; 82248; 82550; 82553; 82803; 82962; 83036; 83690; 83735; 84100; 84132; 84439; 84443; 84481; 84484; 85025; 85384; 85610; 85730; 86704; 86705; 86709; 86803; 86850; 86900; 86901; 87040; 87070; 87086; 87186; 87205; 87340; 87389; 87517; 93005; 93010; 93306-TC; 94002; 99285-25; C9803-CS; J3490; P9034; U0003; U0005